=== PATIENT | female | born 1985 | race Two or more races ===

== ENCOUNTER 2017-07-08 21:45 | Emergency (ER) | payer SELFPAY ==
[2017-07-08 22:18] VITALS: BP 129/84
== END 2017-07-08 23:10 | disposition left against medical advice (07) ==
LOC: ER 21:45
DX: Z53.21 Procedure and treatment not carried out due to patient leaving prior to being seen by health care provider (principal)

== ENCOUNTER 2017-07-11 00:18 | Emergency (ER) | payer OTHER ==
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
[2017-07-11] MEDS ORDERED: NAPROXEN 250 MG TABLET PO ONE (00:39)
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
[2017-07-11 01:40] VITALS: BP 135/84
== END 2017-07-11 01:30 ==
LOC: ER 00:18
DX: R10.13 Epigastric pain (principal); R10.30 Lower abdominal pain, unspecified; M54.6 Pain in thoracic spine; V87.7XXA Person injured in collision between other specified motor vehicles (traffic), initial encounter
CPT/HCPCS: 71020; 99284

== ENCOUNTER 2019-04-25 23:18 | Inpatient (IN) | payer OTHER ==
[2019-04-26] MEDS ORDERED: ONDANSETRON HCL INJ/PF 4 MG/2 ML SDV IV ONE (00:58)
[2019-04-26] MEDS ORDERED: NORMAL SALINE 1000 ML 1,000 ML IV ONE ×2 (00:58→01:08)
[2019-04-26] MEDS ORDERED: ACETAMINOPHEN 325 MG TABLET PO ONE (01:04)
--- NOTE | 2019-04-26 01:12 | ER Document Report ---
ED Medical Screen (RME) - General Chief Complaint: Abdominal Pain Stated Complaint: ABDOMINAL PAIN Time Seen by Provider: 04/26/19 01:04 Notes: Patient is a 43-year-old female presents to the emergency department for generalized abdominal pain. Patient states this afternoon she started with generalized abdominal pain and vomiting. Patient points to his suprapubic region when you ask when she has pain. Upon palpation she screams pushes you away all 4 quadrants. Patient did have one episode of emesis in triage. Patient's initial vitals were noted to be hypotensive and tachypneic. Repeat vitals also now found the patient febrile. Discussed this with charge nurse Desi, discussed immediate need for room placement as patient meets sirs criteria. GENERAL: Alert, generally appears unwell, tachypneic and groaning. ABDOMEN: Soft, Non-distended. Bowel sounds present in all 4 quadrants. Generalized tenderness all 4 quadrants sitting in a wheelchair I have greeted and performed a rapid initial assessment of this patient. A comprehensive ED assessment and evaluation of the patient, analysis of test results and completion of the medical decision making process will be conducted by additional ED providers. I have specifically instructed the patient or family members with the patient to immediately return to any nursing staff should anything change in the patient's condition or with their chief complaint. This medical record was dictated with voice recognizing software. There may be grammatical, syntax errors that are unintended. TRAVEL OUTSIDE OF THE [place] IN LAST 30 DAYS: No - Related Data Allergies/Adverse Reactions: No Known Allergies Allergy (Verified 07/11/17 00:22) Past Medical History Renal/ Medical History: Denies: Hx Peritoneal Dialysis Past Surgical History: Reports: Hx Section - Immunizations Hx Diphtheria, Pertussis, Tetanus Vaccination: No Physical Exam - Vital signs Vitals: Temp Pulse Resp BP Pulse Ox 98.9 F 101 H 22 H 95/52 L 98 04/25/19 23:32 04/25/19 23:32 04/25/19 23:32 04/25/19 23:32 04/25/19 23:32 Course - Vital Signs Vital signs: Temp Pulse Resp BP Pulse Ox 101.3 F H 99 16 113/72 98 04/26/19 01:07 04/26/19 01:07 04/26/19 01:07 04/26/19 01:07 04/26/19 01:07 - Laboratory Result Diagrams: 04/26/19 00:58 04/26/19 00:58
[2019-04-26 01:14] LABS: HEMATOCRIT 37.6 % (36.0-47.0); HEMOGLOBIN 12.5 g/dL (12.0-15.5); MEAN CORPUSCULAR HEMOGLOBIN 25.1 pg (27.0-33.4); MEAN CORPUSCULAR HGB CONC 33.3 g/dL (32.0-36.0); MEAN CORPUSCULAR VOLUME 75 fl (80-97); PLATELET COUNT 357 10^3/uL (150-450); RED BLOOD COUNT 4.99 10^6/uL (3.72-5.28); RED CELL DISTRIBUTION WIDTH 13.8 % (11.5-14.0); WHITE BLOOD COUNT 21.4 10^3/uL (4.0-10.5)
[2019-04-26 01:34] LABS: ABSOLUTE LYMPHOCYTES# (MANUAL) 2.6 10^3/uL (0.5-4.7); ABSOLUTE MONOCYTES # (MANUAL) 1.1 10^3/uL (0.1-1.4); BAND NEUTROPHILS % (MANUAL) 4 % (3-5); BASOPHILS % (MANUAL) 0 % (0-2); EOSINOPHILS % (MANUAL) 0 % (0-6); LYMPHOCYTES % (MANUAL) 12 % (13-45); MONOCYTES % (MANUAL) 5 % (3-13); SEGMENTED NEUTROPHILS % (MAN) 79 % (42-78); TOTAL CELLS COUNTED 100
[2019-04-26 01:35] LABS: PLATELET COMMENT ADEQUATE
[2019-04-26 01:39] LABS: ALANINE AMINOTRANSFERASE 68 U/L (9-52); ALBUMIN 4.7 g/dL (3.5-5.0); ALKALINE PHOSPHATASE 41 U/L (38-126); ANION GAP 12 (5-19); ASPARTATE AMINO TRANSFERASE 42 U/L (14-36); BILIRUBIN,DIRECT 0.2 mg/dL (0.0-0.4); BILIRUBIN,TOTAL 0.5 mg/dL (0.2-1.3); BLOOD UREA NITROGEN 15 mg/dL (7-20); CALCIUM 9.9 mg/dL (8.4-10.2); CARBON DIOXIDE 24 mmol/L (22-30); CHLORIDE 104 mmol/L (98-107); GLUCOSE 174 mg/dL (75-110); LIPASE 92.1 U/L (23-300); POTASSIUM 4.4 mmol/L (3.6-5.0); SODIUM 139.6 mmol/L (137-145); TOTAL PROTEIN 8.1 g/dL (6.3-8.2)
[2019-04-26] MEDS ORDERED: HYDROMORPHONE HCL INJ/PF 2 MG/ML AMPULE IV ONE ×2 (02:11→11:10)
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
[2019-04-26] MEDS ORDERED: FENTANYL CITRATE INJ/PF 100 MCG/2 ML AMPUL IV ONE (03:14)
--- NOTE | 2019-04-26 03:23 | RADIOLOGY REPORT (SQ) ---
EXAM DESCRIPTION: CT ABDOMEN PELVIS WITH IV CONTRAST COMPLETED DATE/TME: 04/26/2019 02:11 CLINICAL HISTORY: 33 years, Female, RLQ pain COMPARISON: 12/15/2015 CT TECHNIQUE: 613 Images stored on PACS. All CT scanners at this facility use dose modulation, iterative reconstruction, and/or weight based dosing when appropriate to reduce radiation dose to as low as reasonably achievable (ALARA). [facility]: Dose Right [facility]: CareDose [facility]: Dose Right [facility]: Teradose 4D [facility]: [employer] LIMITATIONS: None. FINDINGS: The visualized lung bases are unremarkable. Osseous structures are grossly intact. Fatty infiltrative change to the liver. 1.6 x 1.6 cm splenic cyst. The adrenal glands, pancreas, and kidneys are unremarkable. The gallbladder is present. Abundant stool in the colon No gross evidence for bowel obstruction. Normal appendix. No free air or free fluid. Follicular change to the ovaries bilaterally. IMPRESSION: Fatty infiltrative change to the liver. Abundant stool in the colon. Splenic cyst. TECHNICAL DOCUMENTATION: Quality ID # [id number]: Final reports with documentation of one or more dose reduction techniques (e.g., Automated exposure control, adjustment of the mA and/or kV according to patient size, use of iterative reconstruction technique) copyright 2010 [employer]- All Rights Reserved
[2019-04-26 03:40] LABS: APPEARANCE,URINE SLIGHTLY-CLOUDY; BILIRUBIN,URINE NEGATIVE (NEGATIVE); COLOR,URINE YELLOW; GLUCOSE, URINE 50 mg/dL (NEGATIVE); KETONES,URINE TRACE mg/dL (NEGATIVE); LEUKOCYTE ESTERASE,URINE NEGATIVE (NEGATIVE); NITRITE,URINE NEGATIVE (NEGATIVE); PROTEIN,URINE NEGATIVE (NEGATIVE); UROBILINOGEN,URINE NEGATIVE mg/dL (<2.0)
[2019-04-26 05:22] LABS: BACTERIA (WET MOUNT) 3+ BACTERIA SEEN; RBCS (WET MOUNT) NO RBCS SEEN; T.VAGINALIS (WET MOUNT) NO TRICHOMONAS SEEN; WBCS (WET MOUNT) 1+ WBCS SEEN; YEAST (WET MOUNT) NO YEAST SEEN
--- NOTE | 2019-04-26 06:24 | PDOC CONSULTATION ---
Consultation Consult Date: 04/26/19 Provider Consulted: NEREIDA SANTIZO Consult reason:: Abdominal pains History of Present Illness History of Present Illness: YOON GILLILAND is a 33 year old female with history of Polycystic Ovarian Syndrome suddenly c/o abdominal pains at 2 pm yesterday while vacationing in [place]. They drove back here to [place] and went to ED directly. Has associated nausea and vomiting. Had regular BM yesterday. Has not had her menses past few months due to her PCOS and usually has pelvic pains but this pains are worse than before. Admits to feeling cold and noted low grade fever in ED with an elevated WBC. Had a CT scan of pelvis without po contrast which was essentially normal with normal appendix. Past Medical History Past Medical History: History of Polycystic ovarian syndrome Past Surgical History Past Surgical History: Reports: Section Social History Smoking Status: Never Smoker Family History Family History: Reviewed & Not Pertinent Parental Family History Reviewed: Yes Children Family History Reviewed: No Sibling(s) Family History Reviewed.: No Medication/Allergy Home Medications: Methocarbamol [Robaxin 500 mg Tablet] 500 mg PO Q4H PRN #10 tablet 07/11/17 Allergies/Adverse Reactions: No Known Allergies Allergy (Verified 07/11/17 00:22) Review of Systems Constitutional: PRESENT: as per HPI, chills Cardiovascular: PRESENT: other - no chest pains/cough Gastrointestinal: PRESENT: abdominal pain, nausea, vomiting Genitourinary: PRESENT: other - no dysuria Endocrine: PRESENT: menstrual abnormalities Physical Exam Vital Signs: Temp Pulse Resp BP Pulse Ox 98.8 F 99 25 H 132/78 H 96 04/26/19 03:41 04/26/19 01:07 04/26/19 03:41 04/26/19 03:41 04/26/19 03:41 Intake & Output 04/24/19 04/25/19 04/26/19 06:59 06:59 06:59 Intake Total 1999 Balance 1999 General appearance: PRESENT: severe distress Head exam: PRESENT: atraumatic Eye exam: PRESENT: conjunctiva pink Mouth exam: PRESENT: moist Neck exam: PRESENT: full ROM Respiratory exam: PRESENT: clear to auscultation fredy Cardiovascular exam: PRESENT: RRR Pulses: PRESENT: normal radial pulses Vascular exam: PRESENT: normal capillary refill GI/Abdominal exam: PRESENT: soft, tenderness - lower abdomen and LUQ Rectal exam: PRESENT: deferred Extremities exam: PRESENT: full ROM Musculoskeletal exam: PRESENT: ambulatory Neurological exam: PRESENT: alert, oriented to person, oriented to place, oriented to time, oriented to situation Psychiatric exam: PRESENT: anxious Skin exam: PRESENT: normal color, warm Results Laboratory Results: 04/26/19 00:58 04/26/19 00:58 04/26/19 04/26/19 04/26/19 00:58 00:58 00:58 WBC 21.4 H RBC 4.99 Hgb 12.5 Hct 37.6 MCV 75 L MCH 25.1 L MCHC 33.3 RDW 13.8 Plt Count 357 Seg Neutrophils % Not Reportable Lymphocytes % Not Reportable Monocytes % Not Reportable Eosinophils % Not Reportable Basophils % Not Reportable Absolute Neutrophils Not Reportable Absolute Lymphocytes Not Reportable Absolute Monocytes Not Reportable Absolute Eosinophils Not Reportable Absolute Basophils Not Reportable Sodium 139.6 Potassium 4.4 Chloride 104 Carbon Dioxide 24 Anion Gap 12 BUN 15 Creatinine 0.63 Est GFR ( Amer) > 60 Est GFR (Non-Af Amer) > 60 Glucose 174 H Lactic Acid Calcium 9.9 Total Bilirubin 0.5 AST 42 H ALT 68 H Alkaline Phosphatase 41 Total Protein 8.1 Albumin 4.7 Lipase 92.1 Serum HCG, Qual NEGATIVE Urine Color Urine Appearance Urine pH Ur Specific [place] Urine Protein Urine Glucose (UA) Urine Ketones Urine Blood Urine Nitrite Ur Leukocyte Esterase Urine WBC (Auto) Urine RBC (Auto) 04/26/19 04/26/19 02:40 03:17 WBC RBC Hgb Hct MCV MCH MCHC RDW Plt Count Seg Neutrophils % Lymphocytes % Monocytes % Eosinophils % Basophils % Absolute Neutrophils Absolute Lymphocytes Absolute Monocytes Absolute Eosinophils Absolute Basophils Sodium Potassium Chloride Carbon Dioxide Anion Gap BUN Creatinine Est GFR ( Amer) Est GFR (Non-Af Amer) Glucose Lactic Acid 1.8 Calcium Total Bilirubin AST ALT Alkaline Phosphatase Total Protein Albumin Lipase Serum HCG, Qual Urine Color YELLOW Urine Appearance SLIGHTLY-CLOUDY Urine pH 5.0 Ur Specific [place] 1.030 Urine Protein NEGATIVE Urine Glucose (UA) 50 H Urine Ketones TRACE H Urine Blood MODERATE H Urine Nitrite NEGATIVE Ur Leukocyte Esterase NEGATIVE Urine WBC (Auto) 5 Urine RBC (Auto) 1 Impressions: Abdomen/Pelvis CT 04/26/19 02:11 IMPRESSION: Fatty infiltrative change to the liver. Abundant stool in the colon. Splenic cyst. TECHNICAL DOCUMENTATION: Quality ID # 436: Final reports with documentation of one or more dose reduction techniques (e.g., Automated exposure control, adjustment of the mA and/or kV according to patient size, use of iterative reconstruction technique) copyright 2011 [employer]- All Rights Reserved Assessment & Plan - Diagnosis (1) Abdominal pain Is this a current diagnosis for this admission?: Yes (2) Polycystic ovarian syndrome Is this a current diagnosis for this admission?: Yes - Time Time Spent: 30 to 50 Minutes - Plan Summary Plan Summary: Needs transvaginal ultrasound to visualize ovaries May need repeat CT scan abd/pelvis with po contrast Repeat WBC Will need tailings man evaluation
[2019-04-26 06:54] LABS: CHLAM PCR NOT DETECTED (NOT DETECT)
--- NOTE | 2019-04-26 07:14 | RADIOLOGY REPORT (SQ) ---
Ultrasound pelvis on 04/26/2019 at 6:26 AM CLINICAL INDICATION: Pelvic pain COMPARISON: CT from 04/26/2019 FINDINGS: Multiple sonographic images are obtained throughout the pelvis by transabdominal and transvaginal approach, both transverse and sagittal images are obtained. Transvaginal imaging is very limited due to the patient's distended bladder.. Uterus measures approximately 11.8 x 3.2 x 4.2 cm. Endometrial stripe is poorly visualized but not thickened. No gross uterine abnormality is noted. Left ovary measures approximately 3.7 x 1.6 x 2.4 cm. Flow is demonstrated in the left ovary. Right ovary measures approximately 2.1 x 3.4 x 1.9 cm. No adnexal mass or fluid collection is noted. No free fluid is noted. IMPRESSION: Unremarkable exam.
[2019-04-26 07:56] LABS: ABSOLUTE LYMPHOCYTES (AUTO) 3.1 10^3/uL (0.5-4.7); ABSOLUTE NEUT (AUTO) 15.1 10^3/uL (1.7-8.2); BASOPHILS % (AUTO) 0.2 % (0-2); EOSINOPHILS % (AUTO) 0.1 % (0-6); HEMATOCRIT 34.6 % (36.0-47.0); HEMOGLOBIN 11.3 g/dL (12.0-15.5); MEAN CORPUSCULAR HEMOGLOBIN 24.7 pg (27.0-33.4); MEAN CORPUSCULAR HGB CONC 32.6 g/dL (32.0-36.0); MEAN CORPUSCULAR VOLUME 76 fl (80-97); MONOCYTES % (AUTO) 5.2 % (3-13); PLATELET COUNT 313 10^3/uL (150-450); RED BLOOD COUNT 4.58 10^6/uL (3.72-5.28); RED CELL DISTRIBUTION WIDTH 14.1 % (11.5-14.0); SEGMENTED NEUTROPHILS % (AUTO) 78.5 % (42-78); TOTAL CELLS COUNTED % (AUTO) 100 %; WHITE BLOOD COUNT 19.2 10^3/uL (4.0-10.5)
--- NOTE | 2019-04-26 09:17 | RADIOLOGY REPORT (SQ) ---
EXAM DESCRIPTION: CT ABD/PELVIS ORAL ONLY COMPLETED DATE/TIME: 04/26/2019 8:59 am REASON FOR STUDY: abd pain, leukocytosis, fever, surgeon request COMPARISON: Same day CT abdomen pelvis, 0245 hours TECHNIQUE: CT scan of the abdomen and pelvis performed without intravenous contrast. Oral enteric c ontrast was administered. Images reviewed with lung, soft tissue, and bone windows. Reconstructed cor onal and sagittal MPR images reviewed. All images stored on PACS. All CT scanners at this facility use dose modulation, iterative reconstruction, and/or weight based d osing when appropriate to reduce radiation dose to as low as reasonably achievable (ALARA). [facility]: Dose Right [facility]: CareDose [facility]: Dose Right [facility]: Teradose 4D [facility]: Smart 2Peer (Qlipso) RADIATION DOSE: CT Rad equipment meets quality standard of care and radiation dose reduction techniq ues were employed. CTDIvol: 13.5 mGy. DLP: 820 mGy-cm.mGy. LIMITATIONS: None. FINDINGS: LOWER CHEST: Trace pleural effusions and associated atelectasis or consolidation. NON-CONTRASTED LIVER, SPLEEN, ADRENALS: Evaluation limited by lack of IV contrast. Hepatic steatosis . No identified significant masses. PANCREAS: No masses. No peripancreatic inflammatory changes. GALLBLADDER: No identified stones by CT criteria. No inflammatory changes to suggest cholecystitis. RIGHT KIDNEY AND URETER: No suspicious masses. Assessment limited by lack of IV contrast. No signif icant calcifications. No hydronephrosis or hydroureter. LEFT KIDNEY AND URETER: No suspicious masses. Assessment limited by lack of IV contrast. No signifi cant calcifications. No hydronephrosis or hydroureter. AORTA AND RETROPERITONEUM: No aneurysm. No retroperitoneal masses or adenopathy. BOWEL AND PERITONEAL CAVITY: No obvious masses or inflammatory changes. No free fluid. Interval decr ease in colonic stool burden. APPENDIX: Normal. PELVIS, BLADDER, AND ABDOMINAL WALL:No abnormal masses. Coles catheter in the urinary bladder. No f ree fluid. Bladder normal. BONES: No significant findings. OTHER: No other significant finding. IMPRESSION: 1. Interval decrease in stool burden in the colon. 2. Interval placement of Coles catheter in the urinary bladder. 3. Hepatic steatosis. 4. No additional abnormality of the abdomen or pelvis revealed by the administration of oral contras t. 5. Trace bilateral pleural effusions. COMMENT: Quality ID # [id number]: Final reports with documentation of one or more dose reduction techniques (e.g., Automated exposure control, adjustment of the mA and/or kV according to patient size, use of iterative reconstruction technique) TECHNICAL DOCUMENTATION: JOB ID: [id number] [employer]- All Rights Reserved Reading location - IP/workstation name: [email or web address]
[2019-04-26] MEDS ORDERED: ERTAPENEM SODIUM INJ 1 GM VIAL IV ONE (12:39)
--- NOTE | 2019-04-26 12:42 | PDOC H&P ---
History of Present Illness History of Present Illness: YOON GILLILAND is a 33 year old female who had acute onset of lower abdominal pain yesterday afternoon. It initially subsided and then recurred and has been persistent and severe since. patient has had nausea and vomiting and fever. Patient denies any prior episodes of this severe and persistent pain. Patient has had some vaginal discharge but she notes that that is not unusual for her. No hematuria. No flank pain. No recent trauma. Past Medical History Cardiac Medical History: Reports: None Pulmonary Medical History: Reports: None EENT Medical History: Reports: None Neurological Medical History: Reports: None Endocrine Medical History: Reports: Other - Polycystic ovarian syndrome Renal/ Medical History: Reports: None GI Medical History: Reports: None Musculoskeltal Medical History: Reports: None Skin Medical History: Reports: None Psychiatric Medical History: Reports: None Hematology: Reports: None Infectious Medical History: Reports: Other Past Surgical History Past Surgical History: Reports: Section Social History Lives with: Family Smoking Status: Never Smoker Frequency of Alcohol Use: None Hx Recreational Drug Use: No Hx Prescription Drug Abuse: No Family History Family History: Reviewed & Not Pertinent Parental Family History Reviewed: Yes Children Family History Reviewed: Yes Sibling(s) Family History Reviewed.: Yes Medication/Allergy Home Medications: No Home Medications 04/26/19 Allergies/Adverse Reactions: No Known Allergies Allergy (Verified 07/11/17 00:22) Physical Exam Vital Signs: Temp Pulse Resp BP Pulse Ox 97.4 F 99 18 116/69 96 04/26/19 08:13 04/26/19 01:07 04/26/19 09:30 04/26/19 09:30 04/26/19 09:30 Intake & Output 04/25/19 04/26/19 04/27/19 06:59 06:59 06:59 Intake Total 1999 Balance 1999 General appearance: PRESENT: cooperative, other - Patient and severe distress complaining of abdominal pain. Patient appears ill. She does provide a good history. Eye exam: PRESENT: conjunctiva pink Neck exam: PRESENT: other - Supple with no masses and no tenderness Respiratory exam: PRESENT: clear to auscultation fredy Cardiovascular exam: PRESENT: RRR GI/Abdominal exam: PRESENT: other - Severe diffuse abdominal tenderness especially in the mid to lower abdomen with guarding and rebound. Psychiatric exam: PRESENT: anxious Skin exam: PRESENT: warm Results Laboratory Results: 04/26/19 07:42 04/26/19 00:58 04/26/19 04/26/19 04/26/19 00:58 00:58 00:58 WBC 21.4 H RBC 4.99 Hgb 12.5 Hct 37.6 MCV 75 L MCH 25.1 L MCHC 33.3 RDW 13.8 Plt Count 357 Seg Neutrophils % Not Reportable Lymphocytes % Not Reportable Monocytes % Not Reportable Eosinophils % Not Reportable Basophils % Not Reportable Absolute Neutrophils Not Reportable Absolute Lymphocytes Not Reportable Absolute Monocytes Not Reportable Absolute Eosinophils Not Reportable Absolute Basophils Not Reportable Sodium 139.6 Potassium 4.4 Chloride 104 Carbon Dioxide 24 Anion Gap 12 BUN 15 Creatinine 0.63 Est GFR ( Amer) > 60 Est GFR (Non-Af Amer) > 60 Glucose 174 H Lactic Acid Calcium 9.9 Total Bilirubin 0.5 AST 42 H ALT 68 H Alkaline Phosphatase 41 Total Protein 8.1 Albumin 4.7 Lipase 92.1 Serum HCG, Qual NEGATIVE Urine Color Urine Appearance Urine pH Ur Specific [place] Urine Protein Urine Glucose (UA) Urine Ketones Urine Blood Urine Nitrite Ur Leukocyte Esterase Urine WBC (Auto) Urine RBC (Auto) 04/26/19 04/26/19 04/26/19 02:40 03:17 07:42 WBC 19.2 H RBC 4.58 Hgb 11.3 L Hct 34.6 L MCV 76 L MCH 24.7 L MCHC 32.6 RDW 14.1 H Plt Count 313 Seg Neutrophils % 78.5 H Lymphocytes % 16.0 Monocytes % 5.2 Eosinophils % 0.1 Basophils % 0.2 Absolute Neutrophils 15.1 H Absolute Lymphocytes 3.1 Absolute Monocytes 1.0 Absolute Eosinophils 0.0 Absolute Basophils 0.0 Sodium Potassium Chloride Carbon Dioxide Anion Gap BUN Creatinine Est GFR ( Amer) Est GFR (Non-Af Amer) Glucose Lactic Acid 1.8 Calcium Total Bilirubin AST ALT Alkaline Phosphatase Total Protein Albumin Lipase Serum HCG, Qual Urine Color YELLOW Urine Appearance SLIGHTLY-CLOUDY Urine pH 5.0 Ur Specific [place] 1.030 Urine Protein NEGATIVE Urine Glucose (UA) 50 H Urine Ketones TRACE H Urine Blood MODERATE H Urine Nitrite NEGATIVE Ur Leukocyte Esterase NEGATIVE Urine WBC (Auto) 5 Urine RBC (Auto) 1 Impressions: Abdomen/Pelvis CT 04/26/19 02:11 IMPRESSION: Fatty infiltrative change to the liver. Abundant stool in the colon. Splenic cyst. TECHNICAL DOCUMENTATION: Quality ID # 436: Final reports with documentation of one or more dose reduction techniques (e.g., Automated exposure control, adjustment of the mA and/or kV according to patient size, use of iterative reconstruction technique) copyright 2011 [employer]- All Rights Reserved Transvaginal US 04/26/19 06:05 IMPRESSION: Unremarkable exam. Assessment & Plan - Diagnosis (1) Abdominal pain Qualifiers: Abdominal location: generalized Qualified Code(s): R10.84 - Generalized abdominal pain Is this a current diagnosis for this admission?: Yes Plan: Severe diffuse abdominal pain with peritoneal signs on physical exam along with leukocytosis. Gynecology is convinced that it is not a gynecological problem and they do not feel that it is PID, therefore based upon my exam despite a negative CT, she requires an surgical exploration. We will plan exploratory laparoscopy, possible laparotomy. I have explained to the patient and the patient's the risk and benefits of the surgery including risk that I do not find a surgical problem, bleeding, infection, intestinal and adjacent structure injuries. They fully understand the nature of the surgery and indications for it, and agree to proceed.
[2019-04-26] MEDS ORDERED: FENTANYL CITRATE INJ/PF 250 MCG/5 ML AMPULE ONE (12:46)
[2019-04-26] MEDS ORDERED: LIDOCAINE 2% INJ-PF (100 MG/5 ML) SYRINGE ONE (12:46)
[2019-04-26] MEDS ORDERED: KETAMINE HCL INJ 500 MG/10 ML VIAL ONE (12:46)
[2019-04-26] MEDS ORDERED: MIDAZOLAM 2 MG/2 ML INJ ONE (12:47)
[2019-04-26] MEDS ORDERED: PROPOFOL INJ 200 MG/20 ML VIAL IV ONE (12:47)
[2019-04-26] MEDS ORDERED: BUPIVACAINE HCL 0.25 % INJ/PF (2.5 MG/1 ML) 30 ML VIAL ONE (12:49)
[2019-04-26] MEDS ORDERED: MORPHINE SULFATE 10 MG/ML INJ ONE (14:37)
[2019-04-26] MEDS ORDERED: MORPHINE SULFATE 10 MG/ML INJ IV PRN (14:55)
[2019-04-26] MEDS ORDERED: DIPHENHYDRAMINE HCL 50 MG/ML VIAL IV PRN (14:55)
[2019-04-26] MEDS ORDERED: MEPERIDINE HCL/PF INJ 25 MG/1 ML DISP.SYRIN IV PRN (14:55)
[2019-04-26] MEDS ORDERED: FENTANYL CITRATE INJ/PF 100 MCG/2 ML AMPUL IV PRN ×3 (14:55)
[2019-04-26] MEDS ORDERED: PROMETHAZINE HCL INJ 25 MG/1 ML VIAL IV PRN ×2 (14:55)
--- NOTE | 2019-04-26 15:36 | Operative Report ---
Operative Report DATE OF SURGERY: 04/26/19 PREOPERATIVE DIAGNOSIS: Abdominal sepsis POSTOPERATIVE DIAGNOSIS: Possible pelvic inflammatory disease. OPERATION: Exploratory laparoscopy with laparoscopic appendectomy. SURGEON: ANNETTE DURAN ANESTHESIA: GA TISSUE REMOVED OR ALTERED: Appendix. Pus and pelvis swab for Gram stain culture. COMPLICATIONS: None ESTIMATED BLOOD LOSS: Minimal INTRAOPERATIVE FINDINGS: Purulent fluid in the pelvis. Slightly full fallopian tubes. Corpus luteal cysts of the ovaries. Normal-appearing right colon transverse colon descending colon and sigmoid colon. Normal-appearing liver. Normal-appearing gallbladder. Normal-appearing anterior portion of the stomach and first and second portion of the duodenum. Normal-appearing small bowel other than mild hyperemia of portions of the small bowel that appear more consistent with a reaction to the pus and not the primary cause of it. Very mildly distended appendix but no erythema of it. Lower abdominal omental adhesions. PROCEDURE: Informed consent was obtained. Patient was brought to the operating room and placed on the operating room table in the supine position. After satisfactory induction of general anesthesia patient's abdomen was prepped and draped in the usual sterile fashion. A supraumbilical midline incision was made and dissection carried out through the fascia and the peritoneal cavity entered without difficulty. Cox trocar was inserted and pneumoperitoneum produced with good patient toleration. Total of three 5 mm trochars were used during the case. One at the right mid abdomen. One at the mid upper abdomen. And last at the left lower abdomen. Both of the lateral trochars were placed lateral to the rectus. Exploratory laparoscopy was performed. Laparoscopic view of the pelvis revealed purulent fluid in the pelvis. Both of the ovaries were visualized and they appear slightly enlarged with corpus luteal cysts but otherwise unremarkable. The fallopian tubes appears slightly full but otherwise appeared normal. Pus was not seen coming out of the fallopian tubes. The sigmoid colon appeared normal. The descending colon transverse colon right colon the cecum were visualized and they all appeared normal. The appendix appeared mildly dilated but there was no erythema. The small bowel was run from the ileocecal junction to the ligament of Treitz. There was some region of the small bowel that had some hyperemia but the bowel wall appears soft and pliable and I believe the hyperemic regions were likely due to the reaction to the pus that was in the pelvis. No evidence of Meckel's diverticulum nor small bowel perforation nor inflammatory bowel disease was noted. The gallbladder appeared normal. The liver had a slightly fatty appearance but otherwise appear normal. The stomach anteriorly as well as the first and second portion of the duodenum appeared normal with no evidence of perforation. Of note there was omental adhesions at the midline in the lower abdomen which was taken down looking with the LigaSure at the beginning of the case to obtain adequate exploration. With no definite source of the pus in the pelvis, I feel strongly that appendectomy was indicated to completely rule out appendicitis as the source. A plane was created between the mesoappendix and the appendix at the base of the appendix. The appendix was taken flush with the cecum using a laparoscopic PATRICIA stapling device. The mesoappendix was taken using a vascular load of the stapling device. Hemostasis appeared to be good. The appendix was placed in Endobag and removed to the Cox trocar site fascial defect. Of note at the beginning of the case the pus in the pelvis was swabbed for Gram stain and culture. All trochars were removed under the direct vision of the laparoscope to ensure hemostasis. The Cox trocar site fascial defect was closed with interrupted Vicryl sutures. All skin incisions were closed with subcuticular interrupted Monocryl sutures. Marcaine was injected at the port sites. Patient tolerated procedure well with no apparent complications and was taken to the recovery area in stable condition. Dr. Hess (gynecology) was present during the procedure. He has agreed to take the patient onto his service for antibiotic treatments for possible PID.
[2019-04-26] MEDS ORDERED: DEXTROSE 40% GEL 15 GM TUBE PO PRN ×2 (15:37)
[2019-04-26] MEDS ORDERED: DEXTROSE 50%-WATER 25 GM/50 ML DISP.SYRIN IV PRN ×2 (15:37)
[2019-04-26] MEDS ORDERED: GLUCAGON,HUMAN RECOMB 1 MG INJ SUBCUT PRN (15:37)
[2019-04-26] MEDS ORDERED: SUCCINYLCHOLINE CHLORIDE INJ 200 MG/10 ML VIAL ONE (18:21)
[2019-04-26] MEDS ORDERED: ROCURONIUM BROMIDE INJ 50 MG/5 ML VIAL IV ONE (18:21)
[2019-04-26] MEDS: MORPHINE SULFATE 10 MG/ML INJ IV PRN ×2 (18:33→21:53)
[2019-04-26] MEDS: CEFTRIAXONE SODIUM 1,000 MG in DEXTROSE 5%-WATER 50 ML IV SCH (21:17)
[2019-04-26] MEDS: ONDANSETRON 4 MG TAB.RAPDIS PO PRN (21:52)
[2019-04-26] MEDS: CLINDAMYCIN 900 MG/D5W RTU 900 MG/50 ML RTUPB IV SCH (21:53)
--- NOTE | 2019-04-26 22:12 | PDOC PROGRESS REPORT ---
Subjective Progress Note for:: 04/26/19 Subjective:: Try to get up and got nauseated and vomited. Thinks that the preoperative pain has improved but now hurting in the left periumbilical region. Reason For Visit: PELVIC SEPSIS Physical Exam Vital Signs: Temp Pulse Resp BP Pulse Ox 98.6 F 92 18 138/80 H 98 04/26/19 21:17 04/26/19 21:17 04/26/19 21:17 04/26/19 21:17 04/26/19 21:17 Intake & Output 04/25/19 04/26/19 04/27/19 06:59 06:59 06:59 Intake Total 1999 1150 Output Total 1210 Balance 1999 Weight 83.7 kg General appearance: PRESENT: cooperative, mild distress Respiratory exam: PRESENT: clear to auscultation fredy Cardiovascular exam: PRESENT: RRR GI/Abdominal exam: PRESENT: other - Soft, diffuse abdominal tenderness has markedly improved from her preoperative state. She is tender mostly at the trocar sites. Results Laboratory Results: 04/26/19 07:42 04/26/19 00:58 04/26/19 04/26/19 04/26/19 00:58 00:58 00:58 WBC 21.4 H RBC 4.99 Hgb 12.5 Hct 37.6 MCV 75 L MCH 25.1 L MCHC 33.3 RDW 13.8 Plt Count 357 Seg Neutrophils % Not Reportable Lymphocytes % Not Reportable Monocytes % Not Reportable Eosinophils % Not Reportable Basophils % Not Reportable Absolute Neutrophils Not Reportable Absolute Lymphocytes Not Reportable Absolute Monocytes Not Reportable Absolute Eosinophils Not Reportable Absolute Basophils Not Reportable Sodium 139.6 Potassium 4.4 Chloride 104 Carbon Dioxide 24 Anion Gap 12 BUN 15 Creatinine 0.63 Est GFR ( Amer) > 60 Est GFR (Non-Af Amer) > 60 Glucose 174 H Lactic Acid Calcium 9.9 Total Bilirubin 0.5 AST 42 H ALT 68 H Alkaline Phosphatase 41 Total Protein 8.1 Albumin 4.7 Lipase 92.1 Serum HCG, Qual NEGATIVE Urine Color Urine Appearance Urine pH Ur Specific [place] Urine Protein Urine Glucose (UA) Urine Ketones Urine Blood Urine Nitrite Ur Leukocyte Esterase Urine WBC (Auto) Urine RBC (Auto) 04/26/19 04/26/19 04/26/19 02:40 03:17 07:42 WBC 19.2 H RBC 4.58 Hgb 11.3 L Hct 34.6 L MCV 76 L MCH 24.7 L MCHC 32.6 RDW 14.1 H Plt Count 313 Seg Neutrophils % 78.5 H Lymphocytes % 16.0 Monocytes % 5.2 Eosinophils % 0.1 Basophils % 0.2 Absolute Neutrophils 15.1 H Absolute Lymphocytes 3.1 Absolute Monocytes 1.0 Absolute Eosinophils 0.0 Absolute Basophils 0.0 Sodium Potassium Chloride Carbon Dioxide Anion Gap BUN Creatinine Est GFR ( Amer) Est GFR (Non-Af Amer) Glucose Lactic Acid 1.8 Calcium Total Bilirubin AST ALT Alkaline Phosphatase Total Protein Albumin Lipase Serum HCG, Qual Urine Color YELLOW Urine Appearance SLIGHTLY-CLOUDY Urine pH 5.0 Ur Specific [place] 1.030 Urine Protein NEGATIVE Urine Glucose (UA) 50 H Urine Ketones TRACE H Urine Blood MODERATE H Urine Nitrite NEGATIVE Ur Leukocyte Esterase NEGATIVE Urine WBC (Auto) 5 Urine RBC (Auto) 1 Impressions: Abdomen/Pelvis CT 04/26/19 02:11 IMPRESSION: Fatty infiltrative change to the liver. Abundant stool in the colon. Splenic cyst. TECHNICAL DOCUMENTATION: Quality ID # [id number]: Final reports with documentation of one or more dose reduction techniques (e.g., Automated exposure control, adjustment of the mA and/or kV according to patient size, use of iterative reconstruction technique) copyright 2011 [employer]- All Rights Reserved Transvaginal US 04/26/19 06:05 IMPRESSION: Unremarkable exam. Assessment & Plan - Diagnosis (1) Abdominal pain Qualifiers: Abdominal location: generalized Qualified Code(s): R10.84 - Generalized abdominal pain Is this a current diagnosis for this admission?: Yes Plan: Purulent fluid found in the pelvis during exploratory laparoscopy. Possibility of early suppurative appendicitis exist although the appendix was only slightly dilated with no erythema. Will await pathology report. Pelvic inflammatory disease is a likely possibility. Pending intraop culture results. Patient receiving antibiotics as per gynecology for this possibility. I have explained to the patient the intraoperative findings. Will defer to Dr Hess (gynecology) to explain the disease ramifications of PID when patient is more alert.
[2019-04-27] MEDS: MORPHINE SULFATE 10 MG/ML INJ IV PRN ×5 (00:53→21:16)
[2019-04-27] MEDS: NORMAL SALINE 1000 ML 1,000 ML IV PRN ×2 (00:55→13:02)
[2019-04-27] MEDS: CLINDAMYCIN 900 MG/D5W RTU 900 MG/50 ML RTUPB IV SCH ×3 (05:05→22:17)
[2019-04-27 06:15] LABS: HEMOGLOBIN 11.2 g/dL (12.0-15.5); MEAN CORPUSCULAR HEMOGLOBIN 24.8 pg (27.0-33.4); MEAN CORPUSCULAR HGB CONC 32.8 g/dL (32.0-36.0); MEAN CORPUSCULAR VOLUME 76 fl (80-97); PLATELET COUNT 309 10^3/uL (150-450); RED BLOOD COUNT 4.49 10^6/uL (3.72-5.28); RED CELL DISTRIBUTION WIDTH 14.4 % (11.5-14.0); WHITE BLOOD COUNT 11.1 10^3/uL (4.0-10.5)
[2019-04-27 06:39] LABS: ANION GAP 10 (5-19); BLOOD UREA NITROGEN 7 mg/dL (7-20); CALCIUM 8.8 mg/dL (8.4-10.2); CARBON DIOXIDE 26 mmol/L (22-30); CHLORIDE 104 mmol/L (98-107); GLUCOSE 115 mg/dL (75-110); SODIUM 139.7 mmol/L (137-145)
[2019-04-27] MEDS: ONDANSETRON 4 MG TAB.RAPDIS PO PRN (09:27)
[2019-04-27] MEDS: CEFTRIAXONE SODIUM 1,000 MG in DEXTROSE 5%-WATER 50 ML IV SCH ×2 (09:28→21:18)
--- NOTE | 2019-04-27 09:52 | PDOC PROGRESS REPORT ---
Subjective Progress Note for:: 04/27/19 Subjective:: lower midsternal(xiphoid) pains worse on deep breathing No flatus yet Reason For Visit: PELVIC SEPSIS Physical Exam Vital Signs: Temp Pulse Resp BP Pulse Ox 98.8 F 78 16 117/66 100 04/27/19 07:07 04/27/19 07:07 04/27/19 07:07 04/27/19 07:07 04/27/19 07:07 Intake & Output 04/26/19 04/27/19 04/28/19 06:59 06:59 06:59 Intake Total 1999 1250 50 Output Total 2009 Balance 1999 -760 50 Weight 87.3 kg Exam: Abdomen is soft with minimal tenderness. Results Laboratory Results: 04/27/19 05:49 04/27/19 05:49 04/27/19 04/27/19 05:49 05:49 WBC 11.1 H RBC 4.49 Hgb 11.2 L Hct 34.0 L MCV 76 L MCH 24.8 L MCHC 32.8 RDW 14.4 H Plt Count 309 Sodium 139.7 Potassium 4.0 Chloride 104 Carbon Dioxide 26 Anion Gap 10 BUN 7 Creatinine 0.66 Est GFR ( Amer) > 60 Est GFR (Non-Af Amer) > 60 Glucose 115 H Calcium 8.8 Impressions: Abdomen/Pelvis CT 04/26/19 02:11 IMPRESSION: Fatty infiltrative change to the liver. Abundant stool in the colon. Splenic cyst. TECHNICAL DOCUMENTATION: Quality ID # [id number]: Final reports with documentation of one or more dose reduction techniques (e.g., Automated exposure control, adjustment of the mA and/or kV according to patient size, use of iterative reconstruction technique) copyright 2011 [employer]- All Rights Reserved Transvaginal US 04/26/19 06:05 IMPRESSION: Unremarkable exam. Assessment & Plan - Diagnosis (1) Abdominal pain Qualifiers: Abdominal location: generalized Qualified Code(s): R10.84 - Generalized abdominal pain Is this a current diagnosis for this admission?: Yes (2) Polycystic ovarian syndrome Is this a current diagnosis for this admission?: Yes (3) PID (acute pelvic inflammatory disease) Is this a current diagnosis for this admission?: Yes (4) Fever Is this a current diagnosis for this admission?: Yes (5) Leukocytosis Is this a current diagnosis for this admission?: Yes - Time Time Spent with patient: 15-24 minutes - Inpatient Certification Medical Necessity: Need For IV Fluids, Need for IV Antibiotics, Risk of Compli cation if Not Cared For in Hospital - Plan Summary Plan Summary: Check cXR to R/O atelectasis/PNA Suspect pains likely diaphragmatic fro laparoscopic insufflation Start clears Continue IV antibiotics Will leave with [facility] further antibiotic therapy for PID
--- NOTE | 2019-04-27 10:40 | RADIOLOGY REPORT (SQ) ---
EXAM DESCRIPTION: CHEST 2 VIEWS COMPLETED DATE/TIME: 04/27/2019 10:29 am REASON FOR STUDY: rule out pneumonia COMPARISON: Chest x-ray dated 07/11/2017. CT abdomen and pelvis dated 04/26/2019. TECHNIQUE: Frontal and lateral radiographic views of the chest acquired. NUMBER OF VIEWS: Two view. LIMITATIONS: None. FINDINGS: LUNGS AND PLEURA: No opacities, masses or pneumothorax. No pleural effusion. MEDIASTINUM AND HILAR STRUCTURES: No masses or contour abnormalities. HEART AND VASCULAR STRUCTURES: Heart normal size. No evidence for failure. BONES: No acute findings. HARDWARE: None in the chest. OTHER: No other significant finding. IMPRESSION: NO SIGNIFICANT RADIOGRAPHIC FINDING IN THE CHEST. TECHNICAL DOCUMENTATION: JOB ID: [id number] [employer]- All Rights Reserved Reading location - IP/workstation name: [email or web address]
--- NOTE | 2019-04-27 15:02 | PDOC PROGRESS REPORT ---
Subjective Progress Note for:: 04/27/19 Subjective:: Patient states that she feels better although she is complaining of chest pressure. Pulse ox placed and patient "satting" 98 on room air. Her pain is controlled. Patient is ambulating without difficulty. She has the order to have her catheter removed. Her diet has been advanced to clear liquids. She has no complaints of vaginal discharge or bleeding. Reason For Visit: PELVIC SEPSIS Physical Exam - Physical Exam Vital Signs: Temp Pulse Resp BP Pulse Ox 98.4 F 74 16 114/70 99 04/27/19 11:25 04/27/19 11:25 04/27/19 11:25 04/27/19 11:25 04/27/19 11:25 Intake & Output 04/26/19 04/27/19 04/28/19 06:59 06:59 06:59 Intake Total 1999 1250 1100 Output Total 2009 500 Balance 1999 -760 600 Weight 87.3 kg General appearance: PRESENT: no acute distress Respiratory exam: PRESENT: clear to auscultation fredy Cardiovascular exam: PRESENT: RRR GI/Abdominal exam: PRESENT: normal bowel sounds, soft - Appropriate tenderness Extremities exam: ABSENT: calf tenderness, clubbing, full ROM, joint swelling, pedal edema, tenderness, +1 edema, +2 edema, other Result Laboratory Results: 04/27/19 05:49 04/27/19 05:49 04/27/19 04/27/19 05:49 05:49 WBC 11.1 H RBC 4.49 Hgb 11.2 L Hct 34.0 L MCV 76 L MCH 24.8 L MCHC 32.8 RDW 14.4 H Plt Count 309 Sodium 139.7 Potassium 4.0 Chloride 104 Carbon Dioxide 26 Anion Gap 10 BUN 7 Creatinine 0.66 Est GFR ( Amer) > 60 Est GFR (Non-Af Amer) > 60 Glucose 115 H Calcium 8.8 04/26/19 03:17 Clean Catch Midstream Urine Culture - Final Mixed Urogenital Brenda Impressions: Abdomen/Pelvis CT 04/26/19 02:11 IMPRESSION: Fatty infiltrative change to the liver. Abundant stool in the colon. Splenic cyst. TECHNICAL DOCUMENTATION: Quality ID # 436: Final reports with documentation of one or more dose reduction techniques (e.g., Automated exposure control, adjustment of the mA and/or kV according to patient size, use of iterative reconstruction technique) copyright 2011 [employer]- All Rights Reserved Transvaginal US 04/26/19 06:05 IMPRESSION: Unremarkable exam. Chest X-Ray 04/27/19 00:00 IMPRESSION: NO SIGNIFICANT RADIOGRAPHIC FINDING IN THE CHEST. Assessment & Plan - Diagnosis (1) Abdominal pain Qualifiers: Abdominal location: generalized Qualified Code(s): R10.84 - Generalized abdominal pain Is this a current diagnosis for this admission?: Yes (2) Leukocytosis Is this a current diagnosis for this admission?: Yes (3) PID (acute pelvic inflammatory disease) Is this a current diagnosis for this admission?: Yes (4) Polycystic ovarian syndrome Is this a current diagnosis for this admission?: Yes - Time Time Spent with patient: 15-24 minutes - Plan Summary Plan Summary: 1. Continue current IV antibiotics 2. Remove Coles catheter as instructed 3. Continue current care
[2019-04-28] MEDS: MORPHINE SULFATE 10 MG/ML INJ IV PRN (01:30)
[2019-04-28] MEDS: NORMAL SALINE 1000 ML 1,000 ML IV PRN ×3 (01:35→21:12)
[2019-04-28] MEDS: CLINDAMYCIN 900 MG/D5W RTU 900 MG/50 ML RTUPB IV SCH ×3 (05:03→22:50)
[2019-04-28] MEDS: CEFTRIAXONE SODIUM 1,000 MG in DEXTROSE 5%-WATER 50 ML IV SCH ×2 (10:28→21:12)
[2019-04-28] MEDS ORDERED: OXYCODONE-ACETAMINOPHEN 5-325 MG TABLET ONE (12:09)
--- NOTE | 2019-04-28 12:40 | PDOC PROGRESS REPORT ---
Subjective Progress Note for:: 04/28/19 Subjective:: pains left LQ Passed flatus Feels a little better Tolerating clears Reason For Visit: PELVIC SEPSIS Physical Exam Vital Signs: Temp Pulse Resp BP Pulse Ox 98 F 85 18 115/81 99 04/28/19 12:19 04/28/19 12:19 04/28/19 12:19 04/28/19 12:19 04/28/19 12:19 Intake & Output 04/27/19 04/28/19 04/29/19 06:59 06:59 06:59 Intake Total 1250 2780 1000 Output Total 2009 1550 Balance -760 1230 1000 Weight 87.3 kg 85.6 kg Exam: abdomen is soft with mild tenderness LLQ Results Laboratory Results: 04/27/19 05:49 04/27/19 05:49 04/26/19 03:17 Clean Catch Midstream Urine Culture - Final Mixed Urogenital Brenda Impressions: Abdomen/Pelvis CT 04/26/19 02:11 IMPRESSION: Fatty infiltrative change to the liver. Abundant stool in the colon. Splenic cyst. TECHNICAL DOCUMENTATION: Quality ID # [id number]: Final reports with documentation of one or more dose reduction techniques (e.g., Automated exposure control, adjustment of the mA and/or kV according to patient size, use of iterative reconstruction technique) copyright 2011 [employer]- All Rights Reserved Transvaginal US 04/26/19 06:05 IMPRESSION: Unremarkable exam. Chest X-Ray 04/27/19 00:00 IMPRESSION: NO SIGNIFICANT RADIOGRAPHIC FINDING IN THE CHEST. Assessment & Plan - Diagnosis (1) Abdominal pain Qualifiers: Abdominal location: generalized Qualified Code(s): R10.84 - Generalized abdominal pain Is this a current diagnosis for this admission?: Yes (2) Polycystic ovarian syndrome Is this a current diagnosis for this admission?: Yes (3) PID (acute pelvic inflammatory disease) Is this a current diagnosis for this admission?: Yes (4) Fever Is this a current diagnosis for this admission?: Yes (5) Leukocytosis Is this a current diagnosis for this admission?: Yes - Time Time Spent with patient: 15-24 minutes - Inpatient Certification Medical Necessity: Need for IV Antibiotics - Plan Summary Plan Summary: Called by microbiology last night that one of the blood cultures showed G+ cocci She is afebrile and WBC is almost normal yesterday Rec: Continue IV antibiotics per [employer]IATE Advance diet Place on PO pain meds
[2019-04-28] MEDS: OXYCODONE-ACETAMINOPHEN 5-325 MG TABLET PO PRN (18:15)
--- NOTE | 2019-04-28 22:11 | PDOC PROGRESS REPORT ---
Subjective Progress Note for:: 04/28/19 Subjective:: Patient feels much better after surgery. Denies any diffuse abdominal pain, much improved from admission. Pt notes point tenderness in the upper abdomen between laparoscopic port sites to the left of the midline. Patient is tolerating a regular diet and OOB ambulating without difficulty. Pt denies any nausea or vomiting, SOB or CP. Pt is questionable about fevers and chills as she states she gets hot and cold but there are no documented pyrexia. Pt started menses today and states it is not as heavy as her regular menses. Pt notes she is not having severe cramping either. Reason For Visit: PELVIC SEPSIS status post laparoscopy with appendectomy, receiving IV antibiotics Physical Exam - Physical Exam Vital Signs: Temp Pulse Resp BP Pulse Ox 98.4 F 81 16 123/70 97 04/28/19 19:34 04/28/19 19:34 04/28/19 19:34 04/28/19 19:34 04/28/19 19:34 Intake & Output 04/27/19 04/28/19 04/29/19 06:59 06:59 06:59 Intake Total 1250 2780 2100 Output Total 2009 1550 Balance -760 1230 2100 Weight 87.3 kg 85.6 kg General appearance: PRESENT: no acute distress, cooperative, well-developed, well-nourished Head exam: PRESENT: atraumatic, normocephalic Eye exam: PRESENT: EOMI Respiratory exam: PRESENT: clear to auscultation fredy, symmetrical, unlabored Cardiovascular exam: PRESENT: RRR, +S1, +S2 Pulses: PRESENT: normal dorsalis pedis pul GI/Abdominal exam: PRESENT: normal bowel sounds, soft, tenderness - adjacent to laparscopic port site in the upper abdomen Rectal exam: PRESENT: deferred Neurological exam: PRESENT: alert, awake, oriented to person, oriented to place, oriented to time, oriented to situation, normal gait Psychiatric exam: PRESENT: normal mood Skin exam: PRESENT: normal color Result Laboratory Results: 04/27/19 05:49 04/27/19 05:49 Impressions: Abdomen/Pelvis CT 04/26/19 02:11 IMPRESSION: Fatty infiltrative change to the liver. Abundant stool in the colon. Splenic cyst. TECHNICAL DOCUMENTATION: Quality ID # 436: Final reports with documentation of one or more dose reduction techniques (e.g., Automated exposure control, adjustment of the mA and/or kV according to patient size, use of iterative reconstruction technique) copyright 2011 [employer] All Rights Reserved Transvaginal US 04/26/19 06:05 IMPRESSION: Unremarkable exam. Chest X-Ray 04/27/19 00:00 IMPRESSION: NO SIGNIFICANT RADIOGRAPHIC FINDING IN THE CHEST. Assessment & Plan - Diagnosis (1) Abdominal pain Qualifiers: Abdominal location: generalized Qualified Code(s): R10.84 - Generalized abdominal pain Is this a current diagnosis for this admission?: Yes Plan: Continue IV antibiotics for now; blood cultures are negative in addition to genital swabs. IV antibiotics to continue second to noted purulence at the time of laparoscopy
[2019-04-29] MEDS: OXYCODONE-ACETAMINOPHEN 5-325 MG TABLET PO PRN ×2 (00:30→10:14)
[2019-04-29] MEDS: CLINDAMYCIN 900 MG/D5W RTU 900 MG/50 ML RTUPB IV SCH (06:06)
--- NOTE | 2019-04-29 07:40 | PDOC PROGRESS REPORT ---
Subjective Progress Note for:: 04/29/19 Subjective:: Feels a lot better this am Tolerating reg diet Reason For Visit: PELVIC SEPSIS Physical Exam Vital Signs: Temp Pulse Resp BP Pulse Ox 98.1 F 65 18 130/83 H 97 04/28/19 22:49 04/28/19 22:49 04/28/19 22:49 04/28/19 22:49 04/28/19 22:49 Intake & Output 04/28/19 04/29/19 04/30/19 06:59 06:59 06:59 Intake Total 2780 2800 Output Total 1550 Balance 1230 2800 Weight 85.6 kg 86.3 kg Exam: abdomen is soft with minimal pelvic tenderness Afebrile Results Laboratory Results: 04/27/19 05:49 04/27/19 05:49 Impressions: Abdomen/Pelvis CT 04/26/19 02:11 IMPRESSION: Fatty infiltrative change to the liver. Abundant stool in the colon. Splenic cyst. TECHNICAL DOCUMENTATION: Quality ID # 436: Final reports with documentation of one or more dose reduction techniques (e.g., Automated exposure control, adjustment of the mA and/or kV according to patient size, use of iterative reconstruction technique) copyright 2011 [employer]- All Rights Reserved Transvaginal US 04/26/19 06:05 IMPRESSION: Unremarkable exam. Chest X-Ray 04/27/19 00:00 IMPRESSION: NO SIGNIFICANT RADIOGRAPHIC FINDING IN THE CHEST. Assessment & Plan - Diagnosis (1) Abdominal pain Qualifiers: Abdominal location: generalized Qualified Code(s): R10.84 - Generalized abdominal pain Is this a current diagnosis for this admission?: Yes (2) Polycystic ovarian syndrome Is this a current diagnosis for this admission?: Yes (3) PID (acute pelvic inflammatory disease) Is this a current diagnosis for this admission?: Yes (4) Fever Is this a current diagnosis for this admission?: Yes (5) Leukocytosis Is this a current diagnosis for this admission?: Yes - Time Time Spent with patient: 15-24 minutes - Plan Summary Plan Summary: OK to discharge today from general surgical viewpoint Continue po antibiotics per watch dial stoner Will follow in the surgical clinic in 2 weeks
[2019-04-29] MEDS: CEFTRIAXONE SODIUM 1,000 MG in DEXTROSE 5%-WATER 50 ML IV SCH (09:19)
--- NOTE | 2019-04-29 11:17 | PDOC DISCHARGE SUMMARY ---
General - Admit/Disc Date/PCP Admission Date/Primary Care Provider: 04/26/19 12:03 Discharge Date: 04/29/19 - Discharge Diagnosis (1) Abdominal pain Is this a current diagnosis for this admission?: Yes (2) Leukocytosis Is this a current diagnosis for this admission?: Yes (3) PID (acute pelvic inflammatory disease) Is this a current diagnosis for this admission?: Yes (4) Polycystic ovarian syndrome Is this a current diagnosis for this admission?: Yes - Additional Information Resuscitation Status: Full Code Discharge Diet: As Tolerated, Regular Discharge Activity: Activity As Tolerated, No Lifting Over 10 Pounds, Pelvic Rest, No tub bath Home Medications: No Home Medications 04/26/19 History of Present Illness Patient complains of: Abdominal pain History of Present Illness: YOON GILLILAND is a 33 year old female, who had acute onset of lower abdominal pain yesterday a few days ago. It initially subsided and then recurred and has been persistent and severe since. Patient has had nausea and vomiting and fever. Patient denies any prior episodes of this severe and persistent pain. Patient has had some vaginal discharge but she notes that that is not unusual for her. No hematuria. No flank pain. No recent trauma. Hospital Course Hospital Course: Hospital course was essentially uneventful. She remained afebrile and her leukocytosis resolved. Patient was ambulating and voiding without difficulty. Patient denied chest pain, shortness of breath, fever/chills or nausea/vomiting. Her postoperative pain was controlled with medication. Physical Exam - Physical Exam Vital Signs: Temp Pulse Resp BP Pulse Ox 98.0 F 56 L 18 132/73 H 97 04/29/19 07:47 04/29/19 07:47 04/29/19 07:47 04/29/19 07:47 04/29/19 07:47 Intake & Output 04/28/19 04/29/19 04/30/19 06:59 06:59 06:59 Intake Total 2780 2800 50 Output Total 1550 Balance 1230 2800 50 Weight 85.6 kg 86.3 kg General appearance: PRESENT: no acute distress Respiratory exam: PRESENT: clear to auscultation fredy Cardiovascular exam: PRESENT: RRR GI/Abdominal exam: PRESENT: normal bowel sounds, soft - Appropriate tenderness Extremities exam: ABSENT: calf tenderness, clubbing, full ROM, joint swelling, pedal edema, tenderness, +1 edema, +2 edema, other Result Laboratory Results: 04/27/19 05:49 04/27/19 05:49 04/26/19 14:30 Peritoneal Gram Stain - Final Impressions: Abdomen/Pelvis CT 04/26/19 02:11 IMPRESSION: Fatty infiltrative change to the liver. Abundant stool in the colon. Splenic cyst. TECHNICAL DOCUMENTATION: Quality ID # 436: Final reports with documentation of one or more dose reduction techniques (e.g., Automated exposure control, adjustment of the mA and/or kV according to patient size, use of iterative reconstruction technique) copyright 2011 [employer]- All Rights Reserved Transvaginal US 04/26/19 06:05 IMPRESSION: Unremarkable exam. Chest X-Ray 04/27/19 00:00 IMPRESSION: NO SIGNIFICANT RADIOGRAPHIC FINDING IN THE CHEST. Plan Discharge Plan: 1. Discharge home 2. Complete full course of antibiotics 3. Follow up with UX MANAGER in 2 weeks Time Spent: Greater than 30 Minutes Acute Heart Failure - Is this a Heart Failure Patient?: No
[2019-04-29 11:22] VITALS: BP 120/64
== END 2019-04-29 12:44 | disposition home or self-care (01) | DRG 750 ==
LOC: ER 23:18 → EH 04-26 12:03 → 2N 04-26 16:36
PROVIDERS: ADMIT Surgery; ATTEND Obstetrics & Gynecology Gynecology
PROC: 0DTJ4ZZ Resection of Appendix, Percutaneous Endoscopic Approach (ICD-10-PCS; principal; 2019-04-26 13:15)
DX: N73.9 Female pelvic inflammatory disease, unspecified (principal); D72.829 Elevated white blood cell count, unspecified; E28.2 Polycystic ovarian syndrome; R10.84 Generalized abdominal pain; K59.00 Constipation, unspecified
CPT/HCPCS: 36415; 51702; 71046; 74176; 74177; 76830; 790; 80048; 80053; 81001; 83605; 83690; 84703; 85025; 85027; 87040; 87070; 87075; 87077; 87086; 87205; 87210; 87491; 87591; 88304; 93976; 94799; 96360; 99285; J0330; J0696; J1170; J2001; J2250; J2270; J2405; J2704; J3010; J3490; J7030; J7060; S0119

== ENCOUNTER 2019-05-09 14:06 | Emergency (ER) | payer SELFPAY ==
[2019-05-09] MEDS ORDERED: MORPHINE SULFATE 10 MG/ML INJ IV ONE (14:47)
[2019-05-09] MEDS ORDERED: ONDANSETRON HCL INJ/PF 4 MG/2 ML SDV IV ONE ×2 (14:47→19:42)
--- NOTE | 2019-05-09 14:48 | ER Document Report ---
ED Medical Screen (RME) - General Chief Complaint: Abdominal Pain Stated Complaint: ABDOMINAL PAIN Time Seen by Provider: 05/09/19 14:40 Mode of Arrival: Ambulatory Information source: Patient Notes: Patient is a 33-year-old female presented to the emergency department chief complaint of low abdominal pain. Patient reports approximately 10 days ago she had a laparoscopic appendectomy done. She also reports at that time she was diagnosed with a pelvic infection. Patient states she is taking her antibiotics as prescribed, states that she has been taking Tylenol for the pain however the pain is significantly improving. Patient reports nausea but denies any vomiting or diarrhea. Exam: Tenderness to palpation to the low abdomen. I have greeted and performed a rapid initial assessment of this patient. A comprehensive ED assessment and evaluation of the patient, analysis of test results and completion of the medical decision making process will be conducted by additional ED providers. I have specifically instructed the patient or family members with the patient to immediately return to any nursing staff should anything change in the patient's condition or with their chief complaint. This medical record was dictated with voice recognizing software. There may be grammatical, syntax errors that are unintended. TRAVEL OUTSIDE OF THE [place] IN LAST 30 DAYS: No - Related Data Allergies/Adverse Reactions: No Known Allergies Allergy (Verified 07/11/17 00:22) Past Medical History Renal/ Medical History: Reports: Hx Ovarian Cysts. Denies: Hx Peritoneal Dialysis Past Surgical History: Reports: Hx Section - Immunizations Immunizations up to date: Yes Hx Diphtheria, Pertussis, Tetanus Vaccination: Yes Physical Exam - Vital signs Vitals: Temp Pulse Resp BP Pulse Ox 97.6 F 88 18 123/78 98 05/09/19 14:14 05/09/19 14:14 05/09/19 14:14 05/09/19 14:14 05/09/19 14:14 Course - Vital Signs Vital signs: Temp Pulse Resp BP Pulse Ox 97.6 F 88 18 123/78 98 05/09/19 14:14 05/09/19 14:14 05/09/19 14:14 05/09/19 14:14 05/09/19 14:14
[2019-05-09 15:26] LABS: ABSOLUTE EOSINOPHILS # (AUTO) 0.1 10^3/uL (0.0-0.6); ABSOLUTE LYMPHOCYTES (AUTO) 2.3 10^3/uL (0.5-4.7); ABSOLUTE MONOCYTES (AUTO) 0.4 10^3/uL (0.1-1.4); ABSOLUTE NEUT (AUTO) 6.3 10^3/uL (1.7-8.2); BASOPHILS % (AUTO) 0.5 % (0-2); EOSINOPHILS % (AUTO) 0.8 % (0-6); HEMATOCRIT 37.8 % (36.0-47.0); HEMOGLOBIN 12.6 g/dL (12.0-15.5); LYMPHOCYTES % (AUTO) 25.3 % (13-45); MEAN CORPUSCULAR HEMOGLOBIN 25.1 pg (27.0-33.4); MEAN CORPUSCULAR HGB CONC 33.3 g/dL (32.0-36.0); MEAN CORPUSCULAR VOLUME 75 fl (80-97); MONOCYTES % (AUTO) 4.1 % (3-13); PLATELET COUNT 394 10^3/uL (150-450); RED BLOOD COUNT 5.01 10^6/uL (3.72-5.28); RED CELL DISTRIBUTION WIDTH 13.7 % (11.5-14.0); SEGMENTED NEUTROPHILS % (AUTO) 69.3 % (42-78); TOTAL CELLS COUNTED % (AUTO) 100 %; WHITE BLOOD COUNT 9.1 10^3/uL (4.0-10.5)
[2019-05-09 15:31] LABS: APPEARANCE,URINE CLEAR; BILIRUBIN,URINE NEGATIVE (NEGATIVE); COLOR,URINE YELLOW; GLUCOSE, URINE NEGATIVE (NEGATIVE); KETONES,URINE NEGATIVE (NEGATIVE); LEUKOCYTE ESTERASE,URINE TRACE (NEGATIVE); NITRITE,URINE NEGATIVE (NEGATIVE); PROTEIN,URINE NEGATIVE (NEGATIVE); URINE SPECIFIC GRAVITY 1.018; UROBILINOGEN,URINE NEGATIVE mg/dL (<2.0)
[2019-05-09 15:43] LABS: ALANINE AMINOTRANSFERASE 32 U/L (9-52); ALBUMIN 4.5 g/dL (3.5-5.0); ALKALINE PHOSPHATASE 38 U/L (38-126); ANION GAP 10 (5-19); ASPARTATE AMINO TRANSFERASE 25 U/L (14-36); BILIRUBIN,DIRECT 0.2 mg/dL (0.0-0.4); BILIRUBIN,TOTAL 0.3 mg/dL (0.2-1.3); BLOOD UREA NITROGEN 14 mg/dL (7-20); CALCIUM 9.8 mg/dL (8.4-10.2); CARBON DIOXIDE 26 mmol/L (22-30); CHLORIDE 104 mmol/L (98-107); GLUCOSE 156 mg/dL (75-110); POTASSIUM 4.4 mmol/L (3.6-5.0); SODIUM 139.9 mmol/L (137-145); TOTAL PROTEIN 7.7 g/dL (6.3-8.2)
--- NOTE | 2019-05-09 16:24 | RADIOLOGY REPORT (SQ) ---
EXAM DESCRIPTION: U/S NON OB PEL TV W/DOPPLER COMPLETED DATE/TIME: 05/09/2019 3:51 pm REASON FOR STUDY: pelvic pain COMPARISON: 04/26/19. TECHNIQUE: Dynamic and static grayscale images acquired of the pelvis via transvaginal approach and recorded on PACS. Additional selected color Doppler and spectral images recorded. LIMITATIONS: None. FINDINGS: UTERUS: Normal size measuring 8.6 x 5.0 x 4.0 cm. Heterogeneous appearance with evidence of prior . ENDOMETRIAL STRIPE: Endometrial stripe is visualized and measures 7.7 mm. No focal thickening. CERVIX: No nabothian cysts. RIGHT OVARY AND DOPPLER: Normal size measuring 2.6 x 2.4 x 3.2 cm. No worrisome masses. Normal arteri al vascular flow without evidence for torsion. LEFT OVARY AND DOPPLER: Normal size measuring 3.0 x 2.6 x 3.3 cm. No worrisome masses. Normal arteria l vascular flow without evidence for torsion. FREE FLUID: Trace free fluid within the cul de sac. OTHER: No other significant finding. IMPRESSION: Trace free pelvic fluid, likely physiologic. Otherwise, unremarkable pelvic ultrasound . TECHNICAL DOCUMENTATION: JOB ID: [id number] [employer] All Rights Reserved Rev-03/17 Reading location - IP/workstation name: [email or web address]
--- NOTE | 2019-05-09 17:54 | RADIOLOGY REPORT (SQ) ---
EXAM DESCRIPTION: CT ABD/PELVIS WITH IV ONLY COMPLETED DATE/TIME: 05/09/2019 5:42 pm REASON FOR STUDY: pelvic pain COMPARISON: 04/26/2019 TECHNIQUE: CT scan of the abdomen and pelvis performed using helical scanning technique with dynamic intravenous contrast injection. No oral contrast. Images reviewed with lung, soft tissue, and bone windows. Reconstructed coronal and sagittal MPR images reviewed. Delayed images for evaluation of the urinary system also acquired. All images stored on PACS. All CT scanners at this facility use dose modulation, iterative reconstruction, and/or weight based d osing when appropriate to reduce radiation dose to as low as reasonably achievable (ALARA). [facility]: Dose Right [facility]: CareDose [facility]: Dose Right [facility]: Teradose 4D [facility]: WebChalet CONTRAST TYPE AND DOSE: contrast/concentration: Isovue 350.00 mg/ml; Total Contrast Delivered: 98.0 ml; Total Saline Delivered: 72.0 ml RENAL FUNCTION: GFR > 60. RADIATION DOSE: CT Rad equipment meets quality standard of care and radiation dose reduction techniq ues were employed. CTDIvol: 12.3 - 16.7 mGy. DLP: 1674 mGy-cm.. LIMITATIONS: None. FINDINGS: LOWER CHEST: No significant findings. No nodules or infiltrates. LIVER: Steatosis. Normal size. No masses. No dilated ducts. SPLEEN: Normal size. Small cyst 2 cm. PANCREAS: No masses. No significant calcifications. No adjacent inflammation or peripancreatic fluid collections. Pancreatic duct not dilated. GALLBLADDER: No identified stones by CT criteria. No inflammatory changes to suggest cholecystitis. ADRENAL GLANDS: No significant masses or asymmetry. RIGHT KIDNEY AND URETER: No solid masses. No significant calcifications. No hydronephrosis or hyd roureter. LEFT KIDNEY AND URETER: No solid masses. No significant calcifications. No hydronephrosis or hydr oureter. AORTA AND VESSELS: No aneurysm. No dissection. Renal arteries, SMA, celiac without stenosis. RETROPERITONEUM: No retroperitoneal adenopathy, hemorrhage or masses. BOWEL AND PERITONEAL CAVITY: No masses or inflammatory changes. No free fluid or peritoneal masses. APPENDIX: Surgically absent. PELVIS: No mass. No free fluid. Normal bladder. ABDOMINAL WALL: No masses. No hernias. BONES: No significant or acute findings. OTHER: No other significant finding. IMPRESSION: No significant or acute findings. TECHNICAL DOCUMENTATION: JOB ID: [id number] Quality ID # [id number]: Final reports with documentation of one or more dose reduction techniques (e.g., Au tomated exposure control, adjustment of the mA and/or kV according to patient size, use of iterative reconstruction technique) 2010 [employer]- All Rights Reserved Reading location - IP/workstation name: [email or web address]
--- NOTE | 2019-05-09 19:08 | ER Document Report ---
Addendum entered and electronically signed by EDD CAMPBELL PA 05/10/19 03:52: Course - Re-evaluation Re-evalutation: Dr. Seaman did evaluate the patient. She did speak with me afterwards. She states that unfortunately patient was not provided with pain medication at discharge previously, she does not feel patient has an acute abdomen, work-up is reassuring, she states that she is having an expected amount of pain from PID which has not resolved yet. She also states that patient has not been taking her antibiotics as she is supposed to, patient thought 1 of her antibiotics was a pain medication and was only taking it as needed and it was not working. This was clarified for patient, she is taking both doxycycline and Flagyl now, she was provided with pain medication, she is supposed to see Dr. Pereira in the office tomorrow (this is a new plan), and she is to return if she worsens. This was discussed in detail. I did discuss with patient afterwards, she is very grateful, she was provided with pain and nausea medication to go home with as well as prescription, she states she will follow-up tomorrow and return if she worsens. Patient smiling and well-appearing at time of discharge. - Vital Signs Vital signs: Temp Pulse Resp BP Pulse Ox 97.8 F 67 16 121/76 99 05/09/19 21:41 05/09/19 21:41 05/09/19 21:41 05/09/19 21:41 05/09/19 21:41 - Laboratory Result Diagrams: 05/09/19 14:50 05/09/19 14:50 Laboratory results interpreted by me: 05/09/19 05/09/19 05/09/19 14:50 14:50 14:50 MCV 75 L MCH 25.1 L Glucose 156 H Urine Blood MODERATE H Ur Leukocyte Esterase TRACE H Original Note: ED General <SIMBA WOOD - Last Filed: 05/09/19 19:28> - General Mode of Arrival: Ambulatory TRAVEL OUTSIDE OF THE [place] IN LAST 30 DAYS: No <ISREAL JANE - Last Filed: 05/09/19 20:24> <EDD CAMPBELL - Last Filed: 05/09/19 21:15> - General Chief Complaint: Abdominal Pain Stated Complaint: ABDOMINAL PAIN Time Seen by Provider: 05/09/19 14:40 Notes: Patient is a 33-year-old female presents to the emergency department for generalized pelvic pain. Patient states on 04/26 she presented to this facility for generalized abdominal pain. Patient states she inevitably was taken to the operating room. States she had a laparoscopy done with a appendectomy. Patient states she was told that there was an infection in her pelvic region. States she is currently taking doxycycline and Flagyl. Patient states initially her pain was feeling a lot better. States she was pain-free. States last evening she started with generalized pelvic abdominal pain. States this morning she called her [facility] Dr. encarnacion's office. They advised her to come to the e mergency room. Patient's denying any dysuria or vaginal discharge. States the last time she had a bowel movement was today. States "I has been able to poop normally." Patient is denying any nausea, vomiting, fevers. Patient states "the pain I have now is like before I had surgery." (ISREAL SHEN) - Related Data Allergies/Adverse Reactions: No Known Allergies Allergy (Verified 07/11/17 00:22) Past Medical History - General Information source: Patient - Social History Smoking Status: Never Smoker Chew tobacco use (# tins/day): No Frequency of alcohol use: None Drug Abuse: None Family History: Reviewed & Not Pertinent Patient has suicidal ideation: No Patient has homicidal ideation: No Renal/ Medical History: Reports: Hx Ovarian Cysts. Denies: Hx Peritoneal Dialysis Past Surgical History: Reports: Hx Appendectomy, Hx Section - Immunizations Immunizations up to date: Yes Hx Diphtheria, Pertussis, Tetanus Vaccination: Yes <ISREAL JANE - Last Filed: 05/09/19 20:24> Review of Systems - Review of Systems Constitutional: denies: Fever EENT: No symptoms reported Cardiovascular: No symptoms reported Respiratory: No symptoms reported Gastrointestinal: See HPI Genitourinary: See HPI Female Genitourinary: See HPI Musculoskeletal: No symptoms reported Skin: No symptoms reported Hematologic/Lymphatic: No symptoms reported Neurological/Psychological: No symptoms reported <ISREAL JANE - Last Filed: 05/09/19 20:24> Physical Exam <ISREAL JANE - Last Filed: 07/10/19 20:24> - Vital signs Vitals: Temp Pulse Resp BP Pulse Ox 97.6 F 88 18 123/78 98 05/09/19 14:14 05/09/19 14:14 05/09/19 14:14 05/09/19 14:14 05/09/19 14:14 - Notes Notes: GENERAL: Alert, interacts well. No acute distress. HEAD: Normocephalic, atraumatic. EYES: Pupils equal, round, and reactive to light. Extraocular movements intact. ENT: Oral mucosa moist, tongue midline. NECK: Full range of motion. Supple. Trachea midline. LUNGS: Clear to auscultation bilaterally, no wheezes, rales, or rhonchi. No respiratory distress. HEART: Regular rate and rhythm. No murmur ABDOMEN: Soft, no McBurney's point tenderness, no [place] sign noted. Non- distended. Bowel sounds present in all 4 quadrants. Generalized pelvic suprapub ic abdominal pain noted. EXTREMITIES: Moves all 4 extremities spontaneously. No edema, normal radial and dorsalis pedis pulses bilaterally. No cyanosis. BACK: no cervical, thoracic, lumbar midline tenderness. No saddle anesthesia, normal distal neurovascular exam. NEUROLOGICAL: Alert and oriented x3. Normal speech. cranial nerves II through XII grossly intact PSYCH: Normal affect, normal mood. SKIN: Warm, dry, normal turgor. No rashes or lesions noted. (ISREAL JANE) Course - Laboratory Result Diagrams: 05/09/19 14:50 05/09/19 14:50 <SIMBA WOOD - Last Filed: 05/09/19 19:28> - Laboratory Result Diagrams: 05/09/19 14:50 05/09/19 14:50 <ISREAL JANE - Last Filed: 05/09/19 20:24> - Laboratory Result Diagrams: 05/09/19 14:50 05/09/19 14:50 <EDD CAMPBELL - Last Filed: 05/09/19 21:15> - Re-evaluation Re-evalutation: 05/09/19 19:28 I personally and independently obtained patient history and examined the patient and have reviewed the APC's note, reviewed, discussed and agree with their assessment and plan. HISTORY OF PRESENT ILLNESS: Patient is a 33-year-old female that presents to the emergency department for chief complaint of lower abdominal pain. Patient currently on antibiotics for PID and had recent ex lap and appendectomy. PHYSICAL EXAMINATION: Vital signs reviewed, nursing noted reviewed. GENERAL: Well-appearing, well-nourished and in no acute distress. HEAD: Atraumatic, normocephalic. EYES: Eyes appear normal, conjunctiva are normal. ENT: nares patent, oropharynx clear without exudates. Moist mucous membranes. NECK: Normal range of motion, supple without lymphadenopathy LUNGS: Breath sounds clear to auscultation bilaterally and equal. No wheezes rales or rhonchi. HEART: Regular rate and rhythm without murmurs ABDOMEN: Soft, suprapubic tenderness. No rebound, guarding, or rigidity. No masses appreciated. EXTREMITIES: Nontender, good range of motion, no pitting or edema. NEUROLOGICAL: No focal neurological deficits. Moves all extremities spo ntaneously Motor and sensory grossly intact on exam. PSYCH: Normal mood, normal affect. SKIN: Warm, Dry, normal turgor, no rashes or lesions noted on exposed MEDICAL DECISION MAKING: Patient's lab work is improved. Her imaging today is unremarkable. Patient is moderately tender in her suprapubic region. Recommend consultation with gynecology for further recommendations and evaluation in the emergency room. Please review detail APC documentation. *Note is created using voice recognition software and may contain spelling, syntax or grammatical errors. (SIMBA WOOD) Patient is a 33-year-old female recent appendectomy with diagnosis of pelvic inflammatory disease. Admission for IV antibiotics due to pelvic inflammatory disease. Patient states initially she was feeling a lot better. States last night she had a sudden onset of increased lower pelvic pain. Patient represents to the emergency room. Initial lab results showed no signs of leukocytosis, patient is afebrile. US WNL. I have discussed this case with [facility] Dr. Seaman. She is suggesting CT imaging of the patient's abdomen. Dr. Seaman then calls the emergency room, states this patient was operated on by surgicalist Dr. Clinton. She is suggesting I reach out to surgery as they are the ones that did the operation. I have discussed this case with Dr. Garcia's OR nurse. She states Dr. Garcia is currently in surgery. States Dr. Garcia will speak with Dr. Seaman about patient care. I did not speak to Dr. Garcia directly. Dr. Garcia calls the emergency department stating I should consult him as needed with CT results. CT images showed no signs of abnormalities. I discussed this case with my attending Dr. Everett Wood. She has evaluated the patient at bedside. Her concern is that due to the patient's history of PCOS with negative CT and ultrasound she may have an intermittent torsion. Her recommendation is to reach out to [facility] for continued treatment modalities. 05/09/19 19:11 I have discussed this case with [facility] Dr. Seaman. She states she is currently in the middle of the delivery. States she will come to the emergency department to evaluate the patient. 05/09/19 19:25 Nursing staff brings to my attention that the patient is complaining of a gener alized headache and is also very nauseated. Requesting antinausea medication. Patient continues to deny need or want for more IV pain medication. States morphine initially "made me feel loopy." 05/09/19 20:24 Patient care and report transferred to Edd Campbell PA-C for evaluation by [facility] Dr. Seaman and further treatment modalities. (ISREAL JANE) - Vital Signs Vital signs: Temp Pulse Resp BP Pulse Ox 98.0 F 72 16 122/88 H 100 05/09/19 19:50 05/09/19 19:50 05/09/19 19:50 05/09/19 19:50 05/09/19 19:50 - Laboratory Laboratory results interpreted by me: 05/09/19 05/09/19 05/09/19 14:50 14:50 14:50 MCV 75 L MCH 25.1 L Glucose 156 H Urine Blood MODERATE H Ur Leukocyte Esterase TRACE H Discharge <SIMBA WOOD - Last Filed: 05/09/19 19:28> <ISREAL JANE - Last Filed: 05/09/19 20:24> <EDD CAMPBELL - Last Filed: 05/09/19 21:15> - Discharge Clinical Impression: Abdominal pain Qualifiers: Abdominal location: generalized Qualified Code(s): R10.84 - Generalized abdominal pain Condition: Stable Disposition: HOME, SELF-CARE Additional Instructions: Your work-up and evaluation is reassuring at this time. Your symptoms are most likely from the PID you are being treated for. If needed take the pain medication provided, take the nausea medication with this. You may need an [id number] stool softener to because this can cause constipation. Take your antibiotics as prescribed. Please see Dr. Pereira in the office tomorrow as discussed with Dr. Jurgen walters. Return if you worsen including vomiting, fever/chills, severe abdominal pain, or any other concerning or worsening symptoms. Prescriptions: Ondansetron [Zofran Odt 4 mg Tablet] 1 - 2 tab PO Q4H PRN #15 tab.rapdis PRN Reason: For Nausea/Vomiting Oxycodone HCl/Acetaminophen [Percocet 5-325 mg Tablet] 1 - 2 tab PO TID PRN #15 tablet PRN Reason: Referrals: BARBARA PEREIRA MD [ACTIVE STAFF] - Follow up tomorrow
[2019-05-09] MEDS ORDERED: ACETAMINOPHEN 325 MG TABLET PO ONE (19:29)
[2019-05-09] MEDS ORDERED: HYDROCODONE/ACETAMINOPHEN 5-325 MG (6 TAB/ER DISP) PO PRN (21:12)
[2019-05-09] MEDS ORDERED: ONDANSETRON ODT 4 MG TAB (6 TAB/ER DISP) PO PRN (21:13)
[2019-05-09 21:48] VITALS: BP 121/76
--- NOTE | 2019-05-09 21:51 | PDOC CONSULTATION ---
Consultation Consult Date: 05/09/19 Attending physician:: ISREAL JANE Provider Consulted: JAZMIN VELASQUEZ Consult reason:: abdominal pain. History of Present Illness Admission Date/PCP: in ER 05/09/2019 Patient complains of: midline lower abdominal pain History of Present Illness: YOON GILLILAND is a 33 year old female with unknown LMP. She reports that she was seen in ER and admitted for appendectomy on 04/26. Review of chart reveals patient seen in consultation by Dr. Gallagher and then Dr. Clinton performed Op L/S with Appendectomy (which was normal path) then intraoperatively Dr. Hess consulted due to suspected PID. Patient was then admitted to [facility] and given IV abx. GC/CT was negative at that visit. Urine cx also unremarkable and Wet prep negative at that visit also. She was discharged by Dr. Palacios on 04/29 Doxy/Flagyl and Diflucan given at discharge. She was not however given any pain medications at discharge. She very evidently on exam and history has PCOS. She reports that she was in significant pain after discharge but was getting better but having midline pain today and was unsure what to do so she came in to the ER. She is having some nausea with abx but is able to keep them down and able to tolerate po fluids/food. Past Medical History LMP: unknown Gynecological Infection: Yes Social History Information Source: Patient Lives with: Family Smoking Status: Never Smoker Frequency of Alcohol Use: None Hx Recreational Drug Use: No Hx Prescription Drug Abuse: No Family History Family History: Reviewed & Not Pertinent Parental Family History Reviewed: No Children Family History Reviewed: NA Sibling(s) Family History Reviewed.: NA Medication/Allergy Home Medications: Ondansetron [Zofran Odt 4 mg Tablet] 1 - 2 tab PO Q4H PRN #15 tab.rapdis 0 05/09/19 Oxycodone HCl/Acetaminophen [Percocet 5-325 mg Tablet] 1 - 2 tab PO TID PRN #15 tablet 05/09/19 Allergies/Adverse Reactions: No Known Allergies Allergy (Verified 07/11/17 00:22) Review of Systems Constitutional: ABSENT: chills, fever(s), headache(s), weight gain, weight loss Gastrointestinal: PRESENT: abdominal pain, nausea, other. ABSENT: constipation, diarrhea, hematemesis, hematochezia, vomiting Genitourinary: ABSENT: dysuria, hematuria Neurological: ABSENT: abnormal gait, abnormal speech, confusion, dizziness, focal weakness, syncope Physical Exam - Physical Exam Vital Signs: Temp Pulse Resp BP Pulse Ox 98.0 F 72 16 122/88 H 100 05/09/19 19:50 05/09/19 19:50 05/09/19 19:50 05/09/19 19:50 05/09/19 19:50 Intake & Output 05/08/19 05/09/19 05/10/19 06:59 06:59 06:59 Weight 85.9 kg General appearance: PRESENT: no acute distress, well-developed, well-nourished Head exam: PRESENT: atraumatic, normocephalic Respiratory exam: PRESENT: clear to auscultation fredy, symmetrical, unlabored Cardiovascular exam: PRESENT: RRR. ABSENT: diastolic murmur, rubs, systolic murmur GI/Abdominal exam: PRESENT: normal bowel sounds, soft, tenderness - mild suprapubic ttp, mild ttp around incisions from Appendectomy. No rebound, no rovsigs. No e/o acute abdomen. ABSENT: distended, guarding, mass, organolmegaly, rebound Rectal exam: PRESENT: deferred Extremities exam: PRESENT: full ROM. ABSENT: calf tenderness, clubbing, pedal edema Musculoskeletal exam: PRESENT: ambulatory Neurological exam: PRESENT: alert, awake, oriented to person, oriented to place, oriented to time, oriented to situation, CN II-XII grossly intact. ABSENT: motor sensory deficit Result Laboratory Results: 05/09/19 14:50 05/09/19 14:50 05/09/19 05/09/19 05/09/19 14:50 14:50 14:50 WBC 9.1 RBC 5.01 Hgb 12.6 Hct 37.8 MCV 75 L MCH 25.1 L MCHC 33.3 RDW 13.7 Plt Count 394 Seg Neutrophils % 69.3 Lymphocytes % 25.3 Monocytes % 4.1 Eosinophils % 0.8 Basophils % 0.5 Absolute Neutrophils 6.3 Absolute Lymphocytes 2.3 Absolute Monocytes 0.4 Absolute Eosinophils 0.1 Absolute Basophils 0.0 Sodium 139.9 Potassium 4.4 Chloride 104 Carbon Dioxide 26 Anion Gap 10 BUN 14 Creatinine 0.62 Est GFR ( Amer) > 60 Est GFR (Non-Af Amer) > 60 Glucose 156 H Calcium 9.8 Total Bilirubin 0.3 AST 25 ALT 32 Alkaline Phosphatase 38 Total Protein 7.7 Albumin 4.5 Serum HCG, Qual NEGATIVE Urine Color Urine Appearance Urine pH Ur Specific [place] Urine Protein Urine Glucose (UA) Urine Ketones Urine Blood Urine Nitrite Ur Leukocyte Esterase Urine WBC (Auto) Urine RBC (Auto) 05/09/19 14:50 WBC RBC Hgb Hct MCV MCH MCHC RDW Plt Count Seg Neutrophils % Lymphocytes % Monocytes % Eosinophils % Basophils % Absolute Neutrophils Absolute Lymphocytes Absolute Monocytes Absolute Eosinophils Absolute Basophils Sodium Potassium Chloride Carbon Dioxide Anion Gap BUN Creatinine Est GFR ( Amer) Est GFR (Non-Af Amer) Glucose Calcium Total Bilirubin AST ALT Alkaline Phosphatase Total Protein Albumin Serum HCG, Qual Urine Color YELLOW Urine Appearance CLEAR Urine pH 5.0 Ur Specific [place] 1.018 Urine Protein NEGATIVE Urine Glucose (UA) NEGATIVE Urine Ketones NEGATIVE Urine Blood MODERATE H Urine Nitrite NEGATIVE Ur Leukocyte Esterase TRACE H Urine WBC (Auto) 1 Urine RBC (Auto) 2 Impressions: Transvaginal US 05/09/19 14:45 IMPRESSION: Trace free pelvic fluid, likely physiologic. Otherwise, unremarkable pelvic ultrasound. Abdomen/Pelvis CT 05/09/19 17:05 IMPRESSION: No significant or acute findings. Status: Imported from PACS Assessment & Plan - Diagnosis (1) Abdominal pain Qualifiers: Abdominal location: generalized Qualified Code(s): R10.84 - Generalized abdominal pain Is this a current diagnosis for this admission?: Yes Plan: normal postop pain from appendectomy and unmedicated with po pain meds postoperatively. mild lower abd pain possible from surgery and resolving PID. Very benign postoperative abd exam. Incisions are c/d/i and no e/o infection. no hematoma/erythema. Extensive discussion with patient regarding expected course of postop appendectomy and suspected PID (non STD source) and also regarding PCOS which is not a cause of her pain at this time. Reviewed normal US and CT scan and reviewed normal WBC. Patient and family members reassured after approp education regarding expected postop course for appendectomy and presumptive PID. (2) PID (acute pelvic inflammatory disease) Is this a current diagnosis for this admission?: Yes Plan: continue doxy/flagyl for PID and complete abx. Patient was never given pain meds. Pain rx and antiemetics prn f/u in office in am (3) Polycystic ovarian syndrome Is this a current diagnosis for this admission?: Yes Plan: exam and history c/w PCOS - NOT a cause of her abdominal pain at this time. - Time Time Spent: 30 to 50 Minutes Critical Time spent with patient: 15-24 minutes Medications reviewed and adjusted accordingly: Yes Anticipated discharge: Home Within: within 24 hours - Inpatient Certification Based on my medical assessment, after consideration of the patient's comorbidities, presenting symptoms, or acuity I expect that the services needed warrant INPATIENT care.: No I certify that my determination is in accordance with my understanding of Medicare's requirements for reasonable and necessary INPATIENT services [42 CFR 412.3e].: No
== END 2019-05-09 21:54 | disposition home or self-care (01) ==
LOC: ER 14:06
DX: R10.84 Generalized abdominal pain (principal); R10.2 Pelvic and perineal pain; Z98.890 Other specified postprocedural states
CPT/HCPCS: 96376; 99284; 96374; 96375; 36415; 84703; 85025; 80053; 81001; 76830; 93976; 74177; J2270; J2405

== ENCOUNTER 2019-09-06 11:00 | Emergency (ER) | payer MEDICAID, OTHER ==
[2019-09-06] MEDS ORDERED: KETOROLAC TROMETHAMINE INJ/PF 30 MG/1 ML SDV IM ONE (11:47)
[2019-09-06] MEDS ORDERED: ONDANSETRON 4 MG TAB.RAPDIS PO ONE (11:47)
--- NOTE | 2019-09-06 11:47 | ER Document Report ---
ED Medical Screen (RME) - General Chief Complaint: Pelvic Pain Stated Complaint: FEVER/VOMITING Time Seen by Provider: 09/06/19 11:43 Mode of Arrival: Ambulatory Information source: Patient Notes: 33-year-old female presented to ED for complaint of severe pelvic low back pain bilaterally x2 days. She states last night she had a temperature of 101. She states she was vomiting most of the night. She has burning with urination. She states she was hospitalized about 3 months ago and had a surgery for possible PID. She does have PCOS. She states she does not smoke drink or use any drugs. She states she is . I have greeted and performed a rapid initial assessment of this patient. A comprehensive ED assessment and evaluation of the patient, analysis of test results and completion of medical decision making process will be conducted by an additional ED providers. TRAVEL OUTSIDE OF THE [place] IN LAST 30 DAYS: No - Related Data Allergies/Adverse Reactions: No Known Allergies Allergy (Verified 07/11/17 00:22) Past Medical History Renal/ Medical History: Reports: Hx Ovarian Cysts. Denies: Hx Peritoneal Dialysis Past Surgical History: Reports: Hx Appendectomy, Hx Section - Immunizations Immunizations up to date: Yes Hx Diphtheria, Pertussis, Tetanus Vaccination: Yes Physical Exam - Vital signs Vitals: Temp Pulse Resp BP Pulse Ox 97.7 F 69 16 133/85 H 100 09/06/19 11:14 09/06/19 11:14 09/06/19 11:14 09/06/19 11:14 09/06/19 11:14 Course - Vital Signs Vital signs: Temp Pulse Resp BP Pulse Ox 97.7 F 69 16 133/85 H 100 09/06/19 11:14 09/06/19 11:14 09/06/19 11:14 09/06/19 11:14 09/06/19 11:14
--- NOTE | 2019-09-06 12:31 | ER Document Report ---
ED General - General Chief Complaint: Pelvic Pain Stated Complaint: FEVER/VOMITING Time Seen by Provider: 09/06/19 11:43 Mode of Arrival: Ambulatory TRAVEL OUTSIDE OF THE [place] IN LAST 30 DAYS: No - Related Data Allergies/Adverse Reactions: No Known Allergies Allergy (Verified 09/06/19 11:48) Past Medical History - General Information source: Patient - Social History Smoking Status: Never Smoker Chew tobacco use (# tins/day): No Frequency of alcohol use: None Drug Abuse: None Family History: Reviewed & Not Pertinent Patient has suicidal ideation: No Patient has homicidal ideation: No Renal/ Medical History: Reports: Hx Ovarian Cysts. Denies: Hx Peritoneal Dialysis Past Surgical History: Reports: Hx Appendectomy, Hx Section - Immunizations Immunizations up to date: Yes Hx Diphtheria, Pertussis, Tetanus Vaccination: Yes Physical Exam - Vital signs Vitals: Temp Pulse Resp BP Pulse Ox 97.7 F 69 16 133/85 H 100 09/06/19 11:14 09/06/19 11:14 09/06/19 11:14 09/06/19 11:14 09/06/19 11:14 Course - Vital Signs Vital signs: Temp Pulse Resp BP Pulse Ox 97.7 F 69 16 133/85 H 100 09/06/19 11:14 09/06/19 11:14 09/06/19 11:14 09/06/19 11:14 09/06/19 11:14 - Laboratory Result Diagrams: 09/06/19 12:10 09/06/19 12:10
[2019-09-06 12:34] LABS: ABSOLUTE EOSINOPHILS # (AUTO) 0.1 10^3/uL (0.0-0.6); ABSOLUTE LYMPHOCYTES (AUTO) 2.3 10^3/uL (0.5-4.7); ABSOLUTE MONOCYTES (AUTO) 0.4 10^3/uL (0.1-1.4); ABSOLUTE NEUT (AUTO) 4.1 10^3/uL (1.7-8.2); BASOPHILS % (AUTO) 0.4 % (0-2); EOSINOPHILS % (AUTO) 1.4 % (0-6); HEMATOCRIT 41.6 % (36.0-47.0); HEMOGLOBIN 13.7 g/dL (12.0-15.5); MEAN CORPUSCULAR HEMOGLOBIN 25.5 pg (27.0-33.4); MEAN CORPUSCULAR VOLUME 77 fl (80-97); MONOCYTES % (AUTO) 5.7 % (3-13); PLATELET COUNT 344 10^3/uL (150-450); RED BLOOD COUNT 5.37 10^6/uL (3.72-5.28); RED CELL DISTRIBUTION WIDTH 13.9 % (11.5-14.0); SEGMENTED NEUTROPHILS % (AUTO) 59.5 % (42-78); TOTAL CELLS COUNTED % (AUTO) 100 %; WHITE BLOOD COUNT 6.9 10^3/uL (4.0-10.5)
[2019-09-06 12:36] LABS: APPEARANCE,URINE SLIGHTLY-CLOUDY; BILIRUBIN,URINE NEGATIVE (NEGATIVE); COLOR,URINE YELLOW; GLUCOSE, URINE NEGATIVE (NEGATIVE); KETONES,URINE NEGATIVE (NEGATIVE); PROTEIN,URINE NEGATIVE (NEGATIVE); URINE SPECIFIC GRAVITY 1.021; UROBILINOGEN,URINE NEGATIVE mg/dL (<2.0)
[2019-09-06 12:51] LABS: ALBUMIN 4.8 g/dL (3.5-5.0); ALKALINE PHOSPHATASE 42 U/L (38-126); ANION GAP 10 (5-19); ASPARTATE AMINO TRANSFERASE 23 U/L (14-36); BILIRUBIN,TOTAL 0.5 mg/dL (0.2-1.3); BLOOD UREA NITROGEN 13 mg/dL (7-20); CALCIUM 9.9 mg/dL (8.4-10.2); CARBON DIOXIDE 25 mmol/L (22-30); CHLORIDE 104 mmol/L (98-107); GLUCOSE 103 mg/dL (75-110); POTASSIUM 4.3 mmol/L (3.6-5.0); TOTAL PROTEIN 8.2 g/dL (6.3-8.2)
[2019-09-06] MEDS ORDERED: MORPHINE SULFATE 10 MG/ML INJ ONE (12:59)
[2019-09-06] MEDS ORDERED: FENTANYL CITRATE INJ/PF 100 MCG/2 ML AMPUL IV ONE (13:31)
[2019-09-06] MEDS ORDERED: NORMAL SALINE 1000 ML 1,000 ML IV ONE (13:31)
--- NOTE | 2019-09-06 13:35 | RADIOLOGY REPORT (SQ) ---
EXAM DESCRIPTION: U/S NON OB PEL TV W/DOPPLER COMPLETED DATE/TIME: 09/06/2019 1:15 pm REASON FOR STUDY: Bilateral pelvic pain, fever, nausea and vomiting COMPARISON: None. TECHNIQUE: Dynamic and static grayscale images acquired of the pelvis via transvaginal approach and recorded on PACS. Additional selected color Doppler and spectral images recorded. LIMITATIONS: None. FINDINGS: UTERUS: Contour normal. No mass. ENDOMETRIAL STRIPE: No focal or generalized thickening. No masses. CERVIX: No nabothian cysts. RIGHT OVARY AND DOPPLER: Normal size. 1.8 cm diameter cystic lesion with internal echoes. No worris ome masses. Normal arterial vascular flow without evidence for torsion. LEFT OVARY AND DOPPLER: Normal size. No worrisome masses. Normal arterial vascular flow without evide nce for torsion. FREE FLUID: Small amount. OTHER: No other significant finding. IMPRESSION: Hemorrhagic cyst right ovary. Small amount of free fluid. TECHNICAL DOCUMENTATION: JOB ID: [id number] [employer]- All Rights Reserved Rev Reading location - IP/workstation name: [email or web address]
--- NOTE | 2019-09-06 13:36 | ER Document Report ---
ED GI/ - General Chief Complaint: Pelvic Pain Stated Complaint: FEVER/VOMITING Time Seen by Provider: 09/06/19 11:43 Primary Care Provider: BARBARA HESS MD [ACTIVE STAFF] - Follow up in 3-5 days Mode of Arrival: Ambulatory TRAVEL OUTSIDE OF THE [place] IN LAST 30 DAYS: No - HPI Notes: 33 year old female to the ED with C/O pelvic pain that radiates into the back for the past two days with associated vomiting. Patient states that this feels much like a prior episode of pelvic pain that she had this past summer when she was diagnosed with PID. She was admitted at that time for abdominal pain that had a mixed picture. She had an exploratory lap and had her appendix removed and clinically it appeared she had PID. She was treated for PID and got better. She was supposed to follow up with Dr. Hess in the office and she did, but it has been some time since she has seen him. Denies fevers, chills, headache, chest pain, SOB, diarrhea. She is and has low suspicion for STD. - Related Data Allergies/Adverse Reactions: No Known Allergies Allergy (Verified 09/06/19 11:48) Past Medical History - General Information source: Patient - Social History Smoking Status: Never Smoker Chew tobacco use (# tins/day): No Frequency of alcohol use: None Drug Abuse: None Family History: Reviewed & Not Pertinent Patient has suicidal ideation: No Patient has homicidal ideation: No Renal/ Medical History: Reports: Hx Ovarian Cysts. Denies: Hx Peritoneal Dialysis Past Surgical History: Reports: Hx Appendectomy, Hx Section, Hx Gynecologic Surgery - Immunizations Immunizations up to date: Yes Hx Diphtheria, Pertussis, Tetanus Vaccination: Yes Review of Systems - Review of Systems Constitutional: denies: Chills, Fever EENT: No symptoms reported Cardiovascular: denies: Chest pain, Palpitations, Orthopnea, Dyspnea, Syncope, Dizziness, Lightheaded Respiratory: denies: Cough, Short of breath Gastrointestinal: Abdominal pain, Nausea. denies: Diarrhea, Vomiting Genitourinary: No symptoms reported. denies: Flank pain, Hematuria, Incontinence Female Genitourinary: See HPI. denies: Vaginal discharge, Vaginal bleeding, Painful intercourse Musculoskeletal: No symptoms reported Skin: No symptoms reported Hematologic/Lymphatic: No symptoms reported Neurological/Psychological: No symptoms reported -: Yes All other systems reviewed and negative Physical Exam - Vital signs Vitals: Temp Pulse Resp BP Pulse Ox 97.7 F 69 16 133/85 H 100 09/06/19 11:14 09/06/19 11:14 09/06/19 11:14 09/06/19 11:14 09/06/19 11:14 Interpretation: Normal - General General appearance: Appears well, Alert Notes: evidence of PCOS disease -- patient has hirsutism and masculinization of her features. - HEENT Head: Normocephalic, Atraumatic Eyes: Normal Pupils: PERRL - Respiratory Respiratory status: No respiratory distress Chest status: Nontender Breath sounds: Normal Chest palpation: Normal - Cardiovascular Rhythm: Regular Heart sounds: Normal auscultation Murmur: No - Abdominal Inspection: Obese Distension: No distension Bowel sounds: Normal Tenderness: Tender - + TTP over the pelvic abdomen with mild guarding. No rebound. Organomegaly: No organomegaly - Genitourinary External exam: Normal Speculum exam: Cervix closed. No: Vaginal discharge Vaginal bleeding: None Bimanuel exam: Cervical motion tender, Adnexal tenderness. No: Bladder/Urethral tender, Adnexal mass, Uterus enlarged Notes: + cervical motion tenderness and bilateral adnexal tenderness. No masses appreciated - Back Back: Normal, Nontender - Extremities General upper extremity: Normal inspection, Nontender, Normal color, Normal ROM, Normal temperature General lower extremity: Normal inspection, Nontender, Normal color, Normal ROM, Normal temperature, Normal weight bearing. No: Janie's sign - Neurological Neuro grossly intact: Yes Cognition: Normal Orientation: AAOx4 [place] Coma Scale Eye Opening: Spontaneous Abby Coma Scale Verbal: Oriented [place] Coma Scale Motor: Obeys Commands Abby Coma Scale Total: 15 Speech: Normal Motor strength normal: LUE, RUE, LLE, RLE Sensory: Normal - Psychological Associated symptoms: Normal affect, Normal mood - Skin Skin Temperature: Warm Skin Moisture: Dry Skin Color: Normal Course - Re-evaluation Re-evalutation: Discussed patient with Dr. Hess. He is familiar with this patient. Agrees to empirically treat with Doxy for a chronic PID picture. Of note, when she was first admitted for PID, she had a significant leukocytosis and was febrile. She has reassuring vitals and vitals today. After pain control, she is feeling better. Will have her follow with Dr. Hess. She agrees with the plan. - Vital Signs Vital signs: Temp Pulse Resp BP Pulse Ox 98.0 F 70 16 124/72 99 09/06/19 15:00 09/06/19 15:00 09/06/19 15:00 09/06/19 15:00 09/06/19 15:00 - Laboratory Result Diagrams: 09/06/19 12:10 09/06/19 12:10 Laboratory results interpreted by me: 09/06/19 09/06/19 12:10 12:10 RBC 5.37 H MCV 77 L MCH 25.5 L Urine Blood MODERATE H Leukocyte Esterase Rfl TRACE H - Diagnostic Test Radiology reviewed: Image reviewed, Reports reviewed Discharge - Discharge Clinical Impression: Pelvic pain, Hemorrhagic cyst of right ovary, Pelvic inflammatory disease (PID) Condition: Stable Disposition: HOME, SELF-CARE Instructions: Doxycycline ([facility]), Ovarian Cyst ([facility]), Pelvic Inflammatory Disease ([facility]), Pelvic Pain ([facility]) Additional Instructions: FOLLOW UP WITH DR. HSES WITHOUT FAIL IN THE NEXT 2-5 DAYS. RETURN IF WORSENING PAIN. COMPLETE ANTIBIOTICS. NO SEX FOR TWO WEEKS. PUSH FLUIDS. Prescriptions: Doxycycline Hyclate 100 mg PO BID #28 capsule Oxycodone HCl/Acetaminophen [Percocet 5-325 mg Tablet] 1 tab PO Q6H PRN #6 tablet PRN Reason: Ondansetron [Zofran Odt 4 mg Tablet] 1 - 2 tab PO Q4H PRN #15 tab.rapdis PRN Reason: For Nausea/Vomiting Referrals: BARBARA HESS MD [ACTIVE STAFF] - Follow up in 3-5 days
[2019-09-06] MEDS ORDERED: DIPHENHYDRAMINE HCL 50 MG/ML VIAL IV ONE (15:10)
[2019-09-06 15:41] VITALS: BP 124/72
[2019-09-06 15:57] LABS: T.VAGINALIS (WET MOUNT) NO TRICHOMONAS SEEN; WBCS (WET MOUNT) FEW WBCS SEEN; YEAST (WET MOUNT) YEAST SEEN
[2019-09-06 17:23] LABS: CHLAM PCR NOT DETECTED (NOT DETECT)
== END 2019-09-06 15:41 | disposition home or self-care (01) ==
LOC: ER 11:00
DX: N73.9 Female pelvic inflammatory disease, unspecified (principal); E28.2 Polycystic ovarian syndrome; L68.0 Hirsutism; R10.2 Pelvic and perineal pain; Z90.49 Acquired absence of other specified parts of digestive tract
CPT/HCPCS: 99284; 96372; 96361; 96374; 96375; 36415; 87086; 87210; 84703; 85025; 80053; 81001; 87491; 87591; 76830; 93976; J1200; S0119; J3010; J1885; J7030

== ENCOUNTER 2019-12-24 09:16 | Emergency (ER) | payer BC, OTHER ==
[2019-12-24] MEDS ORDERED: NORMAL SALINE 1000 ML 1,000 ML IV ONE (09:53)
[2019-12-24] MEDS ORDERED: MECLIZINE HCL 25 MG TABLET PO ONE (09:53)
--- NOTE | 2019-12-24 09:56 | ER Document Report ---
ED Medical Screen (RME) - General Chief Complaint: Dizziness Stated Complaint: DIZZINESS Time Seen by Provider: 12/24/19 09:51 TRAVEL OUTSIDE OF THE [place] IN LAST 30 DAYS: No - HPI Notes: 12/24/19 09:55 Patient is a 34-year-old female in early who presents complaining of having dizziness, nausea/vomiting for the past couple weeks. Patient is that she has been seen by the women[facility] clinic already. Patient is not sure how far along she is, but last menstrual cycle was November 09. She has not had any vaginal bleeding or pelvic pain. Patient believes that she is dehydrated. She did have gestational diabetes with a previous . No fever, chest pain, shortness of breath. I have treated and performed a rapid initial assessment of this patient. A comprehensive ED assessment and evaluation of the patient, analysis of test results and completion of medical decision making process will be conducted by additional ED providers. PHYSICAL EXAMINATION: GENERAL: Well-appearing, well-nourished and in no acute distress. A&Ox4. Answers questions appropriately. Neuro: Cranial nerves grossly intact, GCS 15, NIH 0. Heart: RRR - Related Data Allergies/Adverse Reactions: No Known Allergies Allergy (Verified 12/24/19 09:44) Home Medications: prenatals Past Medical History - Social History Frequency of alcohol use: None Drug Abuse: None Renal/ Medical History: Reports: Hx Ovarian Cysts. Denies: Hx Peritoneal Dialysis Past Surgical History: Reports: Hx Appendectomy, Hx Section, Hx Gynecologic Surgery - Immunizations Immunizations up to date: Yes Hx Diphtheria, Pertussis, Tetanus Vaccination: Yes Physical Exam - Vital signs Vitals: Temp Pulse Resp BP Pulse Ox 97.6 F 85 18 114/81 100 12/24/19 09:35 12/24/19 09:35 12/24/19 09:35 12/24/19 09:35 12/24/19 09:35 Course - Vital Signs Vital signs: Temp Pulse Resp BP Pulse Ox 97.6 F 85 18 114/81 100 12/24/19 09:35 12/24/19 09:35 12/24/19 09:35 12/24/19 09:35 12/24/19 09:35
[2019-12-24 10:38] LABS: ABSOLUTE BASOPHILS # (AUTO) 0.1 10^3/uL (0.0-0.2); ABSOLUTE EOSINOPHILS # (AUTO) 0.1 10^3/uL (0.0-0.6); ABSOLUTE LYMPHOCYTES (AUTO) 3.3 10^3/uL (0.5-4.7); ABSOLUTE MONOCYTES (AUTO) 0.7 10^3/uL (0.1-1.4); ABSOLUTE NEUT (AUTO) 7.5 10^3/uL (1.7-8.2); BASOPHILS % (AUTO) 0.5 % (0-2); EOSINOPHILS % (AUTO) 1.3 % (0-6); HEMATOCRIT 39.7 % (36.0-47.0); LYMPHOCYTES % (AUTO) 28.3 % (13-45); MEAN CORPUSCULAR HEMOGLOBIN 24.9 pg (27.0-33.4); MEAN CORPUSCULAR HGB CONC 32.7 g/dL (32.0-36.0); MEAN CORPUSCULAR VOLUME 76 fl (80-97); MONOCYTES % (AUTO) 6.1 % (3-13); PLATELET COUNT 353 10^3/uL (150-450); RED BLOOD COUNT 5.22 10^6/uL (3.72-5.28); RED CELL DISTRIBUTION WIDTH 13.8 % (11.5-14.0); SEGMENTED NEUTROPHILS % (AUTO) 63.8 % (42-78); TOTAL CELLS COUNTED % (AUTO) 100 %; WHITE BLOOD COUNT 11.7 10^3/uL (4.0-10.5)
[2019-12-24 10:58] LABS: ALBUMIN 4.3 g/dL (3.5-5.0); ALKALINE PHOSPHATASE 34 U/L (38-126); ANION GAP 11 (5-19); ASPARTATE AMINO TRANSFERASE 17 U/L (14-36); BILIRUBIN,TOTAL 0.2 mg/dL (0.2-1.3); BLOOD UREA NITROGEN 15 mg/dL (7-20); CALCIUM 9.8 mg/dL (8.4-10.2); CARBON DIOXIDE 24 mmol/L (22-30); CHLORIDE 104 mmol/L (98-107); GLUCOSE 127 mg/dL (75-110); POTASSIUM 4.1 mmol/L (3.6-5.0); TOTAL PROTEIN 7.7 g/dL (6.3-8.2)
[2019-12-24 11:49] VITALS: BP 123/85
[2019-12-24 12:07] LABS: APPEARANCE,URINE CLEAR; BILIRUBIN,URINE NEGATIVE (NEGATIVE); COLOR,URINE YELLOW; GLUCOSE, URINE NEGATIVE (NEGATIVE); KETONES,URINE NEGATIVE (NEGATIVE); PROTEIN,URINE NEGATIVE (NEGATIVE); UROBILINOGEN,URINE NEGATIVE mg/dL (<2.0)
--- NOTE | 2019-12-24 13:16 | ER Document Report ---
ED General - General Chief Complaint: Dizziness Stated Complaint: DIZZINESS Time Seen by Provider: 12/24/19 09:51 Mode of Arrival: Ambulatory Information source: Patient Notes: 34-year-old female presents emergency department with complaints of low back pain dizziness and nausea. She reports she has had the symptoms for the last few weeks. She reports she is . She is not sure how far along. Reports last menstrual period was November 09, 2019. She did go see her primary care provider last and they told her she was probably dehydrated. She does complain of nausea and vomiting. Denies fever diarrhea. TRAVEL OUTSIDE OF THE [place] IN LAST 30 DAYS: No - HPI Onset: Other - Few weeks Onset/Duration: Persistent Associated symptoms: Nausea, Vomiting Exacerbated by: Denies Relieved by: Denies Similar symptoms previously: Yes Recently seen / treated by doctor: Yes - Related Data Allergies/Adverse Reactions: No Known Allergies Allergy (Verified 12/24/19 09:44) Home Medications: prenatals Past Medical History - General Information source: Patient Last Menstrual Period: 11/09/2019 - Social History Smoking Status: Unknown if Ever Smoked Frequency of alcohol use: None Drug Abuse: None Lives with: Family Family History: Reviewed & Not Pertinent Patient has suicidal ideation: No Patient has homicidal ideation: No Endocrine Medical History: Reports: Hx Diabetes Mellitus Type 2 - gestational Renal/ Medical History: Reports: Hx Ovarian Cysts. Denies: Hx Peritoneal Dialysis Past Surgical History: Reports: Hx Appendectomy, Hx Section, Hx Gynecologic Surgery - Immunizations Immunizations up to date: Yes Hx Diphtheria, Pertussis, Tetanus Vaccination: Yes Review of Systems - Review of Systems Notes: Review HPI for review of systems., All other systems negative Physical Exam - Vital signs Vitals: Temp Pulse Resp BP Pulse Ox 97.6 F 85 18 114/81 100 12/24/19 09:35 12/24/19 09:35 12/24/19 09:35 12/24/19 09:35 12/24/19 09:35 - General General appearance: Appears well, Alert In distress: None - HEENT Head: Normocephalic Eyes: Normal Conjunctiva: Normal Neck: Normal, Supple. No: Lymphadenopathy - Respiratory Respiratory status: No respiratory distress Chest status: Nontender Breath sounds: Normal Chest palpation: Normal - Cardiovascular Rhythm: Regular Heart sounds: Normal auscultation Murmur: No - Abdominal Inspection: Normal Distension: No distension Bowel sounds: Normal Tenderness: Nontender Organomegaly: No organomegaly - Back Back: Normal - Extremities General upper extremity: Normal ROM General lower extremity: Normal ROM - Neurological Neuro grossly intact: Yes Cognition: Normal Orientation: AAOx4 [place] Coma Scale Eye Opening: Spontaneous Abby Coma Scale Verbal: Oriented Abby Coma Scale Motor: Obeys Commands [place] Coma Scale Total: 15 Speech: Normal - Psychological Associated symptoms: Normal affect, Normal mood - Skin Skin Temperature: Warm Skin Moisture: Dry Skin Color: Normal Course - Re-evaluation Re-evalutation: 12/24/19 14:07 Patient presents emergency department with complaints of nausea vomiting dizziness for the past few weeks. Reports she is but she is unsure how she is. She did go see her primary care provider last and was told that she was probably dehydrated. She denies abdominal pain. Denies vaginal bleeding. Labs unremarkable. Ultrasound shows 6 weeks 2-day intrauterine . 12/24/19 15:11 Patient reports she is feeling much better. Drinking p.o. fluids without vomiting. Instructed on Reglan and all results.. Instructed on the importance of pushing fluids follow-up with her [employer] MANAGER as scheduled. She verbalized understanding to all instructions. Obstetrics Ultrasound 12/24/19 13:14 IMPRESSION: Living intrauterine . EGA 6 weeks 2 days. Findings as described. Trimester of : First trimester - 0 to 13 weeks. Laboratory 12/24/19 12/24/19 12/24/19 10:26 10:26 11:01 WBC 11.7 H RBC 5.22 Hgb 13.0 Hct 39.7 MCV 76 L MCH 24.9 L MCHC 32.7 RDW 13.8 Plt Count 353 Lymph % (Auto) 28.3 [place] % (Auto) 6.1 Eos % (Auto) 1.3 Baso % (Auto) 0.5 Absolute Neuts (auto) 7.5 Absolute Lymphs (auto) 3.3 Absolute Monos (auto) 0.7 Absolute Eos (auto) 0.1 Absolute Basos (auto) 0.1 Seg Neutrophils % 63.8 Sodium 138.6 Potassium 4.1 Chloride 104 Carbon Dioxide 24 Anion Gap 11 BUN 15 Creatinine 0.52 Est GFR ( Amer) > 60 Est GFR (MDRD) Non-Af > 60 Glucose 127 H POC Glucose 101 Calcium 9.8 Magnesium 1.8 Total Bilirubin 0.2 Direct Bilirubin 0.0 Neonat Total Bilirubin Not Reportable Neonat Direct Bilirubin Not Reportable Neonat Indirect Bili Not Reportable AST 17 ALT 20 Alkaline Phosphatase 34 L Total Protein 7.7 Albumin 4.3 Beta HCG, Quant 84389.00 H Total Beta HCG POSITIVE Urine Color Urine Appearance Urine pH Ur Specific [place] Urine Protein Urine Glucose (UA) Urine Ketones Urine Blood Urine Nitrite (Reflex) Urine Bilirubin Urine Urobilinogen Leukocyte Esterase Rfl Urine RBC (Auto) Urine Bacteria (Auto) Urine WBC (Reflex) Squamous Epi Cells Auto Urine Mucus (Auto) Urine Ascorbic Acid 12/24/19 11:40 WBC RBC Hgb Hct MCV MCH MCHC RDW Plt Count Lymph % (Auto) [place] % (Auto) Eos % (Auto) Baso % (Auto) Absolute Neuts (auto) Absolute Lymphs (auto) Absolute Monos (auto) Absolute Eos (auto) Absolute Basos (auto) Seg Neutrophils % Sodium Potassium Chloride Carbon Dioxide Anion Gap BUN Creatinine Est GFR ( Amer) Est GFR (MDRD) Non-Af Glucose POC Glucose Calcium Magnesium Total Bilirubin Direct Bilirubin Neonat Total Bilirubin Neonat Direct Bilirubin Neonat Indirect Bili AST ALT Alkaline Phosphatase Total Protein Albumin Beta HCG, Quant Total Beta HCG Urine Color YELLOW Urine Appearance CLEAR Urine pH 5.0 Ur Specific [place] 1.020 Urine Protein NEGATIVE Urine Glucose (UA) NEGATIVE Urine Ketones NEGATIVE Urine Blood SMALL H Urine Nitrite (Reflex) NEGATIVE Urine Bilirubin NEGATIVE Urine Urobilinogen NEGATIVE Leukocyte Esterase Rfl NEGATIVE Urine RBC (Auto) 1 Urine Bacteria (Auto) TRACE Urine WBC (Reflex) 1 Squamous Epi Cells Auto 3 Urine Mucus (Auto) RARE Urine Ascorbic Acid NEGATIVE - Vital Signs Vital signs: Temp Pulse Resp BP Pulse Ox 97.6 F 69 18 123/85 100 12/24/19 09:35 12/24/19 11:30 12/24/19 09:35 12/24/19 11:30 12/24/19 09:35 - Laboratory Result Diagrams: 12/24/19 10:26 12/24/19 10:26 Laboratory results interpreted by me: 12/24/19 12/24/19 12/24/19 10:26 10:26 11:40 WBC 11.7 H MCV 76 L MCH 24.9 L Glucose 127 H Alkaline Phosphatase 34 L Beta HCG, Quant 24944.00 H Urine Blood SMALL H - Diagnostic Test Radiology reviewed: Image reviewed, Reports reviewed - EKG Interpretation by Me EKG shows normal: Sinus rhythm Rate: Normal Rhythm: NSR Additional EKG results interpreted by me: 12/24/19 14:[address] elevation no T wave inversion Discharge - Discharge Clinical Impression: Dizziness Nausea & vomiting Qualifiers: Vomiting type: unspecified Vomiting Intractability: non-intractable Qualified Code(s): R11.2 - Nausea with vomiting, unspecified Qualifiers: Weeks of gestation: less than 8 weeks Qualified Code(s): Z3A.01 - Less than 8 weeks gestation of Condition: Stable Disposition: HOME, SELF-CARE Instructions: Antinausea Medication ([facility]), Dizziness ([facility]), Intravenous (IV) Fluids ([facility]), ([facility]), Reglan ([facility]), Vomiting ([facility]) Additional Instructions: *You have been evaluated for dizziness, nausea vomiting, *Your ultrasound showed a 6-week 2-day single intrauterine *Take medication as prescribed for the nausea *Ensure adequate fluid intake to prevent dehydration *Follow up with a primary care provider or your MERCHANDISING TEAM LEAD within 1 week *Return to ED for worsening condition, changes, needs, continued nausea and vomiting, abdominal pain, vaginal bleeding Prescriptions: Metoclopramide HCl [Reglan] 10 mg PO Q6H #15 tablet
--- NOTE | 2019-12-24 14:25 | RADIOLOGY REPORT (SQ) ---
EXAM DESCRIPTION: U/S OB TRANSVAGINAL W/O DOP COMPLETED DATE/TIME: 12/24/2019 1:55 pm REASON FOR STUDY: preg, n/v COMPARISON: None. TECHNIQUE: Transvaginal static and realtime grayscale images acquired of the pelvis. Additional ha cted spectral and color Doppler images recorded. All images stored on PACs. bHC,100 CLINICAL DATES: LMP 11/09/2019. 6 weeks 3 days. LIMITATIONS: None. FINDINGS: FETUS: Single Living intrauterine . ULTRASOUND EGA: 6 weeks 2 days. ULTRASOUND [place]: 08/16/2020 EFW: Not applicable less than 20 weeks. CRL: 0.5 cm FHR: 126 beats per minute. SURVEY: Too early to assess. AMNIOTIC FLUID: Adequate amount. PLACENTA: Not yet developed due to early gestation. SUBCHORIONIC BLEED: Yes. SIZE OF BLEED: 3.4 x 1.3 x 1.2 cm. UTERUS: No masses. No anomalies. CERVICAL LENGTH: 3 cm. Closed. RIGHT ADNEXA: Normal ovary with normal vascular flow. 2.1 cm cyst. No adnexal free fluid. No adnexal masses. LEFT ADNEXA: Normal ovary with normal vascular flow. No adnexal free fluid. No adnexal masses. FREE FLUID: None. OTHER: No other significant finding. IMPRESSION: Living intrauterine . EGA 6 weeks 2 days. Findings as described. Trimester of : First trimester - 0 to 13 weeks. TECHNICAL DOCUMENTATION: JOB ID: [id number] 2010 [employer]- All Rights Reserved rev-03/17 Reading location - IP/workstation name: [email or web address]
--- NOTE | 2019-12-27 19:41 | EKG REPORT ---
SEVERITY:- NORMAL ECG - SINUS RHYTHM : Confirmed by: Beverley Ocampo MD 27-Dec-2019 19:39:31
== END 2019-12-24 15:28 | disposition home or self-care (01) ==
LOC: ER 09:16
DX: O21.9 Vomiting of pregnancy, unspecified (principal); O24.919 Unspecified diabetes mellitus in pregnancy, unspecified trimester; O26.891 Other specified pregnancy related conditions, first trimester; R42 Dizziness and giddiness; M54.5 Low back pain; Z3A.01 Less than 8 weeks gestation of pregnancy
CPT/HCPCS: 99284; 96360; 36415; 82962; 84702; 83735; 85025; 80053; 81001; 76817; J7030; 93005; 93010

== ENCOUNTER 2019-12-27 20:27 | Emergency (ER) | payer BC ==
--- NOTE | 2019-12-27 20:49 | ER Document Report ---
ED Medical Screen (RME) - General Chief Complaint: Vaginal Bleeding Stated Complaint: VAGINAL BLEEDING 7 WEEKS Time Seen by Provider: 12/27/19 20:48 Primary Care Provider: JAZMIN VELASQUEZ MD [Primary Care Provider] - Follow up as needed TRAVEL OUTSIDE OF THE [place] IN LAST 30 DAYS: No - HPI Notes: 12/27/19 20:49 Patient is a approximately 6 weeks 5 days presents complaining of having bleeding that began this afternoon/evening. She was seen by [facility] this morning and had an unremarkable exam otherwise. Patient states that she was not bleeding at that time. She does have some intermittent cramping. No fever, chest pain, shortness of breath, vomiting/diarrhea. Pt is blood type A+ by chart review performed earlier today. I have treated and performed a rapid initial assessment of this patient. A comprehensive ED assessment and evaluation of the patient, analysis of test results and completion of medical decision making process will be conducted by additional ED providers. PHYSICAL EXAMINATION: GENERAL: Well-appearing, well-nourished and in no acute distress. A&Ox4. Answers questions appropriately. - Related Data Allergies/Adverse Reactions: No Known Allergies Allergy (Verified 12/24/19 09:44) Past Medical History Endocrine Medical History: Reports: Hx Diabetes Mellitus Type 2 - gestational Renal/ Medical History: Reports: Hx Ovarian Cysts. Denies: Hx Peritoneal Dialysis Past Surgical History: Reports: Hx Appendectomy, Hx Section, Hx Gynecologic Surgery - Immunizations Immunizations up to date: Yes Hx Diphtheria, Pertussis, Tetanus Vaccination: Yes Physical Exam - Vital signs Vitals: Temp Pulse Resp BP Pulse Ox 98.3 F 89 16 135/86 H 98 12/27/19 20:31 12/27/19 20:31 12/27/19 20:31 12/27/19 20:31 12/27/19 20:31 Course - Vital Signs Vital signs: Temp Pulse Resp BP Pulse Ox 98.3 F 89 16 135/86 H 98 12/27/19 20:31 12/27/19 20:31 12/27/19 20:31 12/27/19 20:31 12/27/19 20:31 Doctor's Discharge - Discharge Referrals: JAZMIN VELASQUEZ MD [Primary Care Provider] - Follow up as needed
[2019-12-27 21:18] LABS: ABSOLUTE BASOPHILS # (AUTO) 0.1 10^3/uL (0.0-0.2); ABSOLUTE EOSINOPHILS # (AUTO) 0.1 10^3/uL (0.0-0.6); ABSOLUTE MONOCYTES (AUTO) 0.9 10^3/uL (0.1-1.4); ABSOLUTE NEUT (AUTO) 10.4 10^3/uL (1.7-8.2); BASOPHILS % (AUTO) 0.3 % (0-2); EOSINOPHILS % (AUTO) 0.9 % (0-6); HEMOGLOBIN 12.4 g/dL (12.0-15.5); LYMPHOCYTES % (AUTO) 20.9 % (13-45); MEAN CORPUSCULAR HEMOGLOBIN 24.7 pg (27.0-33.4); MEAN CORPUSCULAR HGB CONC 32.6 g/dL (32.0-36.0); MEAN CORPUSCULAR VOLUME 76 fl (80-97); MONOCYTES % (AUTO) 6.1 % (3-13); PLATELET COUNT 358 10^3/uL (150-450); RED BLOOD COUNT 5.01 10^6/uL (3.72-5.28); RED CELL DISTRIBUTION WIDTH 13.7 % (11.5-14.0); SEGMENTED NEUTROPHILS % (AUTO) 71.8 % (42-78); TOTAL CELLS COUNTED % (AUTO) 100 %; WHITE BLOOD COUNT 14.6 10^3/uL (4.0-10.5)
[2019-12-27 22:20] LABS: APPEARANCE,URINE CLEAR; BILIRUBIN,URINE NEGATIVE (NEGATIVE); COLOR,URINE STRAW; GLUCOSE, URINE NEGATIVE (NEGATIVE); KETONES,URINE NEGATIVE (NEGATIVE); PROTEIN,URINE NEGATIVE (NEGATIVE); URINE SPECIFIC GRAVITY 1.013; UROBILINOGEN,URINE NEGATIVE mg/dL (<2.0)
--- NOTE | 2019-12-27 22:20 | RADIOLOGY REPORT (SQ) ---
US PELVIS EXAM DATE: 12/27/2019 8:50 PM [facility] HISTORY: Early . Pelvic pain. COMPARISON: 12/24/2019 TECHNIQUE: Grayscale, color Doppler, and spectral Doppler ultrasound images of the pelvis were obtained. FINDINGS: There is an intrauterine gestational sac with a yolk sac and pole visualized. The crown-rump length measures 0.9 cm corresponding to 7 weeks 0 days of . heart rate is 152 bpm. There is a 2 cm adjacent subchorionic hematoma. Cervix is closed and measures 3.7 cm in length. The left ovary is not visualized. The right ovary measures 4.6 cm and contains a simple 2 cm cyst. There is normal color Doppler blood flow in the right ovary. No pelvic free fluid. IMPRESSION: 1. Single live IUP with estimated gestational age 7 weeks 0 days. 2. Small adjacent subchorionic hemorrhage; attention on follow-up imaging is suggested. 3. Simple right ovarian cyst for which no follow-up imaging is needed.
--- NOTE | 2019-12-27 22:55 | ER Document Report ---
HPI - HPI Patient complains to provider of: Vaginal bleeding Time Seen by Provider: 12/27/19 20:48 Onset: This afternoon Onset/Duration: Gradual Quality of pain: Cramping Pain Level: 1 Context: Patient reports that she is currently 6 weeks 5 days G3, P1. Patient reports vaginal bleeding that started today with mild cramping. Patient denies any urinary frequency or dysuria symptoms. Associated Symptoms: Other - Vaginal bleeding, pelvic cramping. denies: Fever, Vomiting Exacerbated by: Denies Relieved by: Denies Similar symptoms previously: Yes Recently seen / treated by doctor: Yes - ROS ROS below otherwise negative: Yes Systems Reviewed and Negative: Yes All other systems reviewed and negative - CONSTITUTIONAL Constitutional: DENIES: Fever - RESPIRATORY Respiratory: DENIES: Coughing - GASTROINTESTINAL Gastrointestinal: REPORTS: Abdominal Pain. DENIES: Nausea, Patient vomiting - URINARY Urinary: DENIES: Dysuria, Urgency, Frequency - REPRODUCTIVE Reproductive: REPORTS: :, Abnormal bleeding / discharge - MUSCULOSKELETAL Musculoskeletal: REPORTS: Back Pain. DENIES: Extremity pain - DERM Skin Color: Normal Skin Problems: None Past Medical History - General Information source: Patient - Social History Smoking Status: Never Smoker Chew tobacco use (# tins/day): No Frequency of alcohol use: None Drug Abuse: None Lives with: Family Family History: Reviewed & Not Pertinent Patient has suicidal ideation: No Patient has homicidal ideation: No - Medical History Medical History: Negative Renal/ Medical History: Reports: Hx Ovarian Cysts. Denies: Hx Peritoneal Dialysis Past Surgical History: Reports: Hx Appendectomy, Hx Section, Hx Gynecologic Surgery - Immunizations Immunizations up to date: Yes Hx Diphtheria, Pertussis, Tetanus Vaccination: Yes Vertical Provider Document - CONSTITUTIONAL Agree With Documented VS: Yes Exam Limitations: No Limitations General Appearance: WD/WN, No Apparent Distress - INFECTION CONTROL TRAVEL OUTSIDE OF THE [place] IN LAST 30 DAYS: No - HEENT HEENT: Atraumatic, Normocephalic - NECK Neck: Normal Inspection, Supple. negative: Lymphadenopathy-Left, Lymphadenopathy-Right - RESPIRATORY Respiratory: Breath Sounds Normal, No Respiratory Distress - CARDIOVASCULAR Cardiovascular: Regular Rate, Regular Rhythm. negative: Tachycardia - GI/ABDOMEN Gastrointestinal: Abdomen Soft, Abdomen Non-Tender, Normal Bowel Sounds - BACK Back: Abnormal Inspection - Upper lumbar paraspinal tenderness. negative: CVA Tenderness-Right, CVA Tenderness-Left - MUSCULOSKELETAL/EXTREMETIES Musculoskeletal/Extremeties: KEYNO PAEZ - NEURO Level of Consciousness: Awake, Alert, Appropriate Motor/Sensory: No Motor Deficit - DERM Integumentary: Warm, Dry, No Rash Course - Re-evaluation Re-evalutation: 12/27/19 22:54 Patient with stable vital signs and stable H&H. Patient with subchorionic bleed noted on ultrasound. Discussed these findings with patient. 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 Good return precautions discussed with patient. - Vital Signs Vital signs: Temp Pulse Resp BP Pulse Ox 98.3 F 89 16 135/86 H 98 12/27/19 20:31 12/27/19 20:31 12/27/19 20:31 12/27/19 20:31 12/27/19 20:31 - Laboratory Result Diagrams: 12/27/19 21:00 Laboratory results interpreted by me: 12/27/19 12/27/19 12/27/19 21:00 21:00 21:52 WBC 14.6 H MCV 76 L MCH 24.7 L Absolute Neuts (auto) 10.4 H Beta HCG, Quant 45349.00 H Urine Blood LARGE H 12/27/19 22:54 Labs- Entire Visit 12/27/19 12/27/19 12/27/19 21:00 21:00 21:52 WBC 14.6 H RBC 5.01 Hgb 12.4 Hct 38.0 MCV 76 L MCH 24.7 L MCHC 32.6 RDW 13.7 Plt Count 358 Lymph % (Auto) 20.9 [place] % (Auto) 6.1 Eos % (Auto) 0.9 Baso % (Auto) 0.3 Absolute Neuts (auto) 10.4 H Absolute Lymphs (auto) 3.0 Absolute Monos (auto) 0.9 Absolute Eos (auto) 0.1 Absolute Basos (auto) 0.1 Seg Neutrophils % 71.8 Beta HCG, Quant 09603.00 H Total Beta HCG POSITIVE Urine Color STRAW Urine Appearance CLEAR Urine pH 5.0 Ur Specific [employer] 1.013 Urine Protein NEGATIVE Urine Glucose (UA) NEGATIVE Urine Ketones NEGATIVE Urine Blood LARGE H Urine Nitrite (Reflex) NEGATIVE Urine Bilirubin NEGATIVE Urine Urobilinogen NEGATIVE Leukocyte Esterase Rfl NEGATIVE Urine RBC (Auto) 6 Urine WBC (Reflex) < 1 Squamous Epi Cells Auto 1 Urine Mucus (Auto) RARE Urine Ascorbic Acid NEGATIVE - Diagnostic Test Radiology reviewed: Reports reviewed Discharge - Discharge Clinical Impression: Qualifiers: Weeks of gestation: less than 8 weeks Qualified Code(s): Z3A.01 - Less than 8 weeks gestation of Subchorionic bleed Qualifiers: Fetus number: single or unspecified fetus Trimester: first trimester Qualified Code(s): O41.8X10 - Other specified disorders of amniotic fluid and membranes, first trimester, not applicable or unspecified Condition: Stable Disposition: HOME, SELF-CARE Instructions: Bleeding During Early ([facility]) Additional Instructions: Return immediately for any new or worsening symptoms Followup with your [employer] care provider, call tomorrow to make a followup appointment Referrals: JAZMIN VELASQUEZ MD [Primary Care Provider] - Follow up as needed
[2019-12-27 23:33] VITALS: BP 120/78
== END 2019-12-27 23:33 | disposition home or self-care (01) ==
LOC: ER 20:27
DX: O20.8 Other hemorrhage in early pregnancy (principal); O99.89 Other specified diseases and conditions complicating pregnancy, childbirth and the puerperium; M54.9 Dorsalgia, unspecified; O26.891 Other specified pregnancy related conditions, first trimester; R10.2 Pelvic and perineal pain; Z3A.01 Less than 8 weeks gestation of pregnancy
CPT/HCPCS: 36415; 76817; 81001; 84702; 85025; 99284

== ENCOUNTER → 2019-12-27 | Outpatient (CLI) | payer BC | LOC: OD 16:51 | PROVIDERS: ATTEND Student in an Organized Health Care Education/Training Program | DX: O36.80X0 Pregnancy with inconclusive fetal viability, not applicable or unspecified (principal) | CPT/HCPCS: 36415; 86900; 86901 ==

== ENCOUNTER 2019-12-31 15:10 | Observation (INO) | payer BC ==
[2019-12-31] MEDS ORDERED: NORMAL SALINE 1000 ML 1,000 ML IV ONE ×2 (16:41→18:26)
[2019-12-31] MEDS ORDERED: ONDANSETRON HCL INJ/PF 4 MG/2 ML SDV IV ONE (16:41)
--- NOTE | 2019-12-31 16:42 | ER Document Report ---
ED Medical Screen (RME) - General Chief Complaint: Flu Symptoms Stated Complaint: VOMITING/FEVER Time Seen by Provider: 12/31/19 16:33 Primary Care Provider: JAZMIN VELASQUEZ MD [Primary Care Provider] - Follow up as needed Notes: Patient is a G3, P1 8-week female who presents the emergency department with vomiting that started at 6:00 this morning. Patient states that she has left upper abdominal pain. She states that she saw specks of blood in her vomit. Denies any diarrhea. Denies rhinorrhea. Exam: Dry mucous membranes. Patient appears not feeling well. I have greeted and performed a rapid initial assessment of this patient. A comprehensive ED assessment and evaluation of the patient, analysis of test results and completion of medical decision making process will be conducted by an additional ED providers. TRAVEL OUTSIDE OF THE [place] IN LAST 30 DAYS: No - Related Data Allergies/Adverse Reactions: No Known Allergies Allergy (Verified 12/24/19 09:44) Past Medical History - Social History Frequency of alcohol use: None Drug Abuse: None Endocrine Medical History: Reports: Hx Diabetes Mellitus Type 2 - gestational Renal/ Medical History: Reports: Hx Ovarian Cysts. Denies: Hx Peritoneal Dialysis Past Surgical History: Reports: Hx Appendectomy, Hx Section, Hx Gynecologic Surgery - Immunizations Immunizations up to date: Yes Hx Diphtheria, Pertussis, Tetanus Vaccination: Yes Doctor's Discharge - Discharge Referrals: JAZMIN VELASQUEZ MD [Primary Care Provider] - Follow up as needed
[2019-12-31 17:24] LABS: ABSOLUTE LYMPHOCYTES (AUTO) 0.6 10^3/uL (0.5-4.7); ABSOLUTE MONOCYTES (AUTO) 0.6 10^3/uL (0.1-1.4); ABSOLUTE NEUT (AUTO) 11.4 10^3/uL (1.7-8.2); BASOPHILS % (AUTO) 0.1 % (0-2); EOSINOPHILS % (AUTO) 0.2 % (0-6); HEMOGLOBIN 12.6 g/dL (12.0-15.5); LYMPHOCYTES % (AUTO) 5.1 % (13-45); MEAN CORPUSCULAR HEMOGLOBIN 25.5 pg (27.0-33.4); MEAN CORPUSCULAR VOLUME 75 fl (80-97); MONOCYTES % (AUTO) 4.5 % (3-13); PLATELET COUNT 326 10^3/uL (150-450); RED BLOOD COUNT 4.93 10^6/uL (3.72-5.28); RED CELL DISTRIBUTION WIDTH 14.2 % (11.5-14.0); SEGMENTED NEUTROPHILS % (AUTO) 90.1 % (42-78); TOTAL CELLS COUNTED % (AUTO) 100 %; WHITE BLOOD COUNT 12.6 10^3/uL (4.0-10.5)
[2019-12-31 17:37] LABS: ALBUMIN 4.3 g/dL (3.5-5.0); ALKALINE PHOSPHATASE 40 U/L (38-126); ANION GAP 14 (5-19); ASPARTATE AMINO TRANSFERASE 17 U/L (14-36); BILIRUBIN,DIRECT 0.2 mg/dL (0.0-0.4); BILIRUBIN,TOTAL 0.5 mg/dL (0.2-1.3); BLOOD UREA NITROGEN 16 mg/dL (7-20); CALCIUM 9.1 mg/dL (8.4-10.2); CARBON DIOXIDE 21 mmol/L (22-30); CHLORIDE 101 mmol/L (98-107); GLUCOSE 115 mg/dL (75-110); POTASSIUM 4.1 mmol/L (3.6-5.0); TOTAL PROTEIN 7.8 g/dL (6.3-8.2)
--- NOTE | 2019-12-31 18:00 | RADIOLOGY REPORT (SQ) ---
EXAM DESCRIPTION: U/S OB TRANSVAG W/DOPPLER COMPLETED DATE/TIME: 12/31/2019 5:48 pm REASON FOR STUDY: abd pain; vomiting COMPARISON: 12/27/2019 TECHNIQUE: Transvaginal static and realtime grayscale images acquired of the pelvis. Additional ha cted spectral and color Doppler images recorded. All images stored on PACs. bHCG: Pending. CLINICAL DATES: LMP 11/09/2019. 7 weeks 3 days. LIMITATIONS: None. FINDINGS: FETUS: Single Living intrauterine . ULTRASOUND EGA: 7 weeks 5 days. ULTRASOUND [place]: 08/13/2020 EFW: Not applicable less than 20 weeks. CRL: 1.4 cm. FHR: 168 beats per minute. SURVEY: No visualized anomalies. AMNIOTIC FLUID: Adequate amount. PLACENTA: Not yet developed due to early gestation. SUBCHORIONIC BLEED: Yes SIZE OF BLEED: 2.1 x 1.6 x 1.5 cm. UTERUS: No masses. No anomalies. CERVICAL LENGTH: 3.3 cm. Closed. RIGHT ADNEXA: Normal ovary with normal vascular flow. 3.2 x 2.2 x 1.9 cm. No adnexal free fluid. No adnexal masses. LEFT ADNEXA: Normal ovary with normal vascular flow. 4.5 x 2.2 x 2.1 cm. There is a 2.2 cm corpus l uteum. No adnexal free fluid. No adnexal masses. FREE FLUID: None. OTHER: No other significant finding. IMPRESSION: LIVING INTRAUTERINE . EGA 7 weeks 5 days. Trimester of : First trimester - 0 to 13 weeks. TECHNICAL DOCUMENTATION: JOB ID: [id number]- All Rights Reserved rev-03/17 Reading location - IP/workstation name: [email or web address]
[2019-12-31 18:26] LABS: APPEARANCE,URINE SLIGHTLY-CLOUDY; BILIRUBIN,URINE NEGATIVE (NEGATIVE); COLOR,URINE YELLOW; GLUCOSE, URINE NEGATIVE (NEGATIVE); KETONES,URINE TRACE mg/dL (NEGATIVE); LEUKOCYTE ESTERASE,URINE NEGATIVE (NEGATIVE); NITRITE,URINE NEGATIVE (NEGATIVE); PROTEIN,URINE 30 mg/dL (NEGATIVE); URINE SPECIFIC GRAVITY 1.028; UROBILINOGEN,URINE NEGATIVE mg/dL (<2.0)
[2019-12-31] MEDS ORDERED: FAMOTIDINE INJ/PF 20 MG/2 ML SDV IV ONE (18:26)
[2019-12-31] MEDS ORDERED: PROMETHAZINE HCL INJ 25 MG/1 ML VIAL IV ONE ×2 (18:26→20:23)
--- NOTE | 2019-12-31 18:27 | ER Document Report ---
Entered by JULIO SILVER SCRIBE 12/31/19 1800 Acting as scribe for:JESU SERVIN DO ED General - General Chief Complaint: Flu Symptoms Stated Complaint: VOMITING/FEVER Time Seen by Provider: 12/31/19 16:33 Primary Care Provider: JAZMIN VELASQUEZ MD [Primary Care Provider] - Follow up as needed Information source: Patient, Relative - Spouse Notes: 34-year-old female presents to the emergency department complaining of flu-like symptoms that began last evening. Patient reports vomiting, nausea, weakness, body aches, fever and throat pain. Patient denies cough, dysuria and rhinorrhea. Patient's spouse reports that after visit to the ED four days ago, patient was feeling better for the next three days. Patient's spouse said that patient started to feel worse late last evening. Patient went to [facility] four days ago and has next appointment in one month. TRAVEL OUTSIDE OF THE [place] IN LAST 30 DAYS: No - Related Data Allergies/Adverse Reactions: No Known Allergies Allergy (Verified 12/24/19 09:44) Past Medical History - General Information source: Patient - Social History Smoking Status: Never Smoker Cigarette use (# per day): No Chew tobacco use (# tins/day): No Frequency of alcohol use: None Drug Abuse: None Family History: Reviewed & Not Pertinent Patient has suicidal ideation: No Patient has homicidal ideation: No Endocrine Medical History: Reports: Hx Diabetes Mellitus Type 2 - gestational Renal/ Medical History: Reports: Hx Ovarian Cysts Past Surgical History: Reports: Hx Appendectomy, Hx Section, Hx Gynecologic Surgery - Immunizations Immunizations up to date: Yes Hx Diphtheria, Pertussis, Tetanus Vaccination: Yes Review of Systems - Review of Systems Constitutional: See HPI, Fever, Weakness EENT: See HPI, Throat pain. denies: Nose discharge Cardiovascular: No symptoms reported Respiratory: See HPI. denies: Cough Gastrointestinal: See HPI, Nausea, Vomiting Genitourinary: See HPI. denies: Dysuria Female Genitourinary: See HPI, Musculoskeletal: No symptoms reported Skin: No symptoms reported Hematologic/Lymphatic: No symptoms reported Neurological/Psychological: No symptoms reported -: Yes All other systems reviewed and negative Physical Exam - Vital signs Vitals: Temp Pulse Resp BP Pulse Ox 98.2 F 96 20 113/66 99 12/31/19 20:10 12/31/19 20:10 12/31/19 20:10 12/31/19 20:10 12/31/19 20:10 - Notes Notes: Physical Exam: General: Alert, appears well. HEENT: Normocephalic. Atraumatic. PERRL. Extraocular movements intact. [place] pharynx clear. Dry mucous membrane. Neck: Supple. Non-tender. Respiratory: No respiratory distress. Clear and equal breath sounds bilaterally. Cardiovascular: Regular rate and rhythm. Abdominal: Normal Inspection. Non-tender. No distension. Normal Bowel Sounds. Back: No gross abnormalities. Extremities: Moves all four extremities. Upper extremities: Normal ROM. Ecchymosis on left antecubital fossa. Lower extremities: Normal inspection. No edema. Normal ROM. Neurological: Normal cognition. AAOx4. Normal speech. Psychological: Normal affect. Normal Mood. Skin: Hot. Dry. Normal color. Course - Re-evaluation Re-evalutation: 12/31/19 21:05 MDM 34 year old G2 does not feel any better s/p 2 liters NS and I have spoken with Dr. Lobato who has graciously agreed to see and evaluate for admission on the second floor. - Vital Signs Vital signs: Temp Pulse Resp BP Pulse Ox 98.2 F 96 20 113/66 99 12/31/19 20:10 12/31/19 20:10 12/31/19 20:10 12/31/19 20:10 12/31/19 20:10 - Laboratory Result Diagrams: 12/31/19 16:54 12/31/19 16:54 Laboratory results interpreted by me: 12/31/19 12/31/19 12/31/19 16:54 16:54 16:54 WBC 12.6 H MCV 75 L MCH 25.5 L RDW 14.2 H Lymph % (Auto) 5.1 L Absolute Neuts (auto) 11.4 H Seg Neutrophils % 90.1 H Sodium 135.9 L Carbon Dioxide 21 L Creatinine 0.44 L Glucose 115 H Serum HCG, Qual POSITIVE H Urine Protein Urine Ketones Urine Blood Urine Ascorbic Acid 12/31/19 17:32 WBC MCV MCH RDW Lymph % (Auto) Absolute Neuts (auto) Seg Neutrophils % Sodium Carbon Dioxide Creatinine Glucose Serum HCG, Qual Urine Protein 30 H Urine Ketones TRACE H Urine Blood MODERATE H Urine Ascorbic Acid 20 H Discharge - Discharge Clinical Impression: Nausea & vomiting Qualifiers: Vomiting type: unspecified Vomiting Intractability: intractable Qualified Code(s): R11.2 - Nausea with vomiting, unspecified Qualifiers: Weeks of gestation: 8 weeks Qualified Code(s): Z3A.08 - 8 weeks gestation of Subchorionic bleed Qualifiers: Fetus number: fetus 6 or greater Trimester: first trimester Qualified Code(s): O41.8X19 - Other specified disorders of amniotic fluid and membranes, first trimester, other fetus; O46.8X1 - Other antepartum hemorrhage, first trimester Disposition: ADMITTED OBSERVATION Admitting Provider: [place] [facility] Admitted: Post Referrals: JAZMIN VELASQUEZ MD [Primary Care Provider] - Follow up as needed I personally performed the services described in the documentation, reviewed and edited the documentation which was dictated to the scribe in my presence, and it accurately records my words and actions.
[2019-12-31] MEDS ORDERED: DEXTROSE 5%-LACTATED RINGERS 1,000 ML IV ONE (20:04)
[2019-12-31] MEDS ORDERED: ONDANSETRON 4 MG TAB.RAPDIS PO PRN (21:13)
--- NOTE | 2019-12-31 21:30 | PDOC H&P ---
History of Present Illness Admission Date/PCP: JAZMIN VELASQUEZ MD Patient complains of: Nausea and vomiting. History of Present Illness: YOON GILLILAND is a 34 year old female She is newly and has nausea and vomiting. Past Medical History Gynecological Infection: No Endocrine Medical History: Reports: Diabetes Mellitus Type 2 - gestational Past Surgical History Past Surgical History: Reports: Appendectomy, Section Social History Smoking Status: Never Smoker Frequency of Alcohol Use: None Hx Recreational Drug Use: No Hx Prescription Drug Abuse: No Family History Family History: Reviewed & Not Pertinent Parental Family History Reviewed: Yes Children Family History Reviewed: Yes Sibling(s) Family History Reviewed.: Yes Medication/Allergy Home Medications: Ondansetron [Zofran Odt 4 mg Tablet] 1 - 2 tab PO Q4H PRN #15 tab.rapdis 05/09/19 Oxycodone HCl/Acetaminophen [Percocet 5-325 mg Tablet] 1 - 2 tab PO TID PRN #15 tablet 05/09/19 Doxycycline Hyclate 100 mg PO BID #28 capsule 09/06/19 Ondansetron [Zofran Odt 4 mg Tablet] 1 - 2 tab PO Q4H PRN #15 tab.rapdis 09/06/19 Oxycodone HCl/Acetaminophen [Percocet 5-325 mg Tablet] 1 tab PO Q6H PRN #6 tablet 09/06/19 Metoclopramide HCl [Reglan] 10 mg PO Q6H #15 tablet 12/24/19 Allergies/Adverse Reactions: No Known Allergies Allergy (Verified 12/24/19 09:44) Physical Exam - Physical Exam Vital Signs: Temp Pulse Resp BP Pulse Ox 98.2 F 96 20 113/66 99 12/31/19 20:10 12/31/19 20:10 12/31/19 20:10 12/31/19 20:10 12/31/19 20:10 Intake & Output 12/30/19 12/31/19 01/01/20 06:59 06:59 06:59 Intake Total 1000 Balance 1000 Weight 84 kg General appearance: PRESENT: mild distress Head exam: PRESENT: atraumatic Mouth exam: PRESENT: dry mucosa Neck exam: PRESENT: full ROM. ABSENT: carotid bruit, JVD, lymphadenopathy, thyromegaly Respiratory exam: PRESENT: unlabored Cardiovascular exam: PRESENT: RRR Vascular exam: PRESENT: normal capillary refill GI/Abdominal exam: PRESENT: normal bowel sounds, soft. ABSENT: distended, guarding, mass, organolmegaly, rebound, tenderness Rectal exam: PRESENT: deferred Extremities exam: PRESENT: full ROM. ABSENT: calf tenderness, clubbing, pedal e margot Neurological exam: PRESENT: alert, awake, oriented to person, oriented to place, oriented to time, oriented to situation, CN II-XII grossly intact. ABSENT: motor sensory deficit Result Laboratory Results: 12/31/19 16:54 12/31/19 16:54 12/31/19 12/31/19 12/31/19 16:54 16:54 16:54 WBC 12.6 H RBC 4.93 Hgb 12.6 Hct 37.0 MCV 75 L MCH 25.5 L MCHC 34.0 RDW 14.2 H Plt Count 326 Seg Neutrophils % 90.1 H Sodium 135.9 L Potassium 4.1 Chloride 101 Carbon Dioxide 21 L Anion Gap 14 BUN 16 Creatinine 0.44 L Est GFR ( Amer) > 60 Glucose 115 H Calcium 9.1 Total Bilirubin 0.5 AST 17 Alkaline Phosphatase 40 Total Protein 7.8 Albumin 4.3 Serum HCG, Qual POSITIVE H Urine Color Urine Appearance Urine pH Ur Specific [place] Urine Protein Urine Glucose (UA) Urine Ketones Urine Blood Urine Nitrite Ur Leukocyte Esterase Urine WBC (Auto) Urine RBC (Auto) 12/31/19 17:32 WBC RBC Hgb Hct MCV MCH MCHC RDW Plt Count Seg Neutrophils % Sodium Potassium Chloride Carbon Dioxide Anion Gap BUN Creatinine Est GFR ( Amer) Glucose Calcium Total Bilirubin AST Alkaline Phosphatase Total Protein Albumin Serum HCG, Qual Urine Color YELLOW Urine Appearance SLIGHTLY-CLOUDY Urine pH 5.0 Ur Specific [place] 1.028 Urine Protein 30 H Urine Glucose (UA) NEGATIVE Urine Ketones TRACE H Urine Blood MODERATE H Urine Nitrite NEGATIVE Ur Leukocyte Esterase NEGATIVE Urine WBC (Auto) 3 Urine RBC (Auto) 7 Impressions: Transvaginal US 12/31/19 16:42 IMPRESSION: LIVING INTRAUTERINE . EGA 7 weeks 5 days. Trimester of : First trimester - 0 to 13 weeks. Plan IV fluids overnight. Assessment & Plan - Diagnosis (1) Nausea & vomiting Qualifiers: Vomiting type: unspecified Vomiting Intractability: intractable Qualified Code(s): R11.2 - Nausea with vomiting, unspecified (2) Qualifiers: Weeks of gestation: 8 weeks Qualified Code(s): Z3A.08 - 8 weeks gestation of (3) Subchorionic bleed Qualifiers: Fetus number: fetus 6 or greater Trimester: first trimester Qualified Code(s): O41.8X19 - Other specified disorders of amniotic fluid and membranes, first trimester, other fetus; O46.8X1 - Other antepartum hemorrhage, first trimester - Plan Summary Plan Summary: Plan IV fluids and antiemetics.
[2019-12-31 21:37] LABS: A TYPE INFLUENZA AG NEGATIVE (NEGATIVE); B INFLUENZA AG NEGATIVE (NEGATIVE)
[2020-01-01] MEDS ORDERED: INFLUENZA QUAD (6MOS+) 2019-20 VAC 0.5 ML SYR IM ONE (00:26)
[2020-01-01] MEDS: RINGERS SOLUTION,LACTATED 1,000 ML IV PRN ×2 (08:47)
[2020-01-01] MEDS ORDERED: NORMAL SALINE 1000 ML 1,000 ML with THIAMINE HCL 100 MG, MVI, ADULT NO.1 WITH VIT K 10 ... IV ONE ×4 (10:00)
[2020-01-01] MEDS: FAMOTIDINE INJ/PF 20 MG/2 ML SDV IV SCH ×2 (10:23→21:06)
--- NOTE | 2020-01-01 13:30 | PDOC PROGRESS REPORT ---
Subjective Progress Note for:: 01/01/20 Subjective:: nausea with eating jello today Reason For Visit: NAUSEA VOMITING Physical Exam - Physical Exam Vital Signs: Temp Pulse Resp BP Pulse Ox 97.7 F 91 16 107/46 L 100 01/01/20 11:05 01/01/20 11:05 01/01/20 11:05 01/01/20 11:05 01/01/20 11:05 Intake & Output 12/31/19 01/01/20 01/02/20 06:59 06:59 06:59 Intake Total 2360 1370 Output Total 300 500 Balance 2060 870 Weight 86 kg General appearance: PRESENT: no acute distress, well-developed, well-nourished Neck exam: PRESENT: full ROM. ABSENT: carotid bruit, JVD, lymphadenopathy, thyromegaly Respiratory exam: PRESENT: clear to auscultation fredy, symmetrical, unlabored Cardiovascular exam: PRESENT: RRR. ABSENT: diastolic murmur, rubs, systolic murmur Pulses: PRESENT: normal dorsalis pedis pul, +2 pedal pulses bilateral GI/Abdominal exam: PRESENT: normal bowel sounds, soft. ABSENT: distended, guarding, mass, organolmegaly, rebound, tenderness Extremities exam: PRESENT: full ROM. ABSENT: calf tenderness, clubbing, pedal edema Neurological exam: PRESENT: alert, awake, oriented to person, oriented to place, oriented to time, oriented to situation, CN II-XII grossly intact. ABSENT: motor sensory deficit Psychiatric exam: PRESENT: appropriate affect, normal mood. ABSENT: homicidal ideation, suicidal ideation Skin exam: PRESENT: dry, intact, warm. ABSENT: cyanosis, rash Result Laboratory Results: 12/31/19 16:54 12/31/19 16:54 12/31/19 12/31/19 12/31/19 16:54 16:54 16:54 WBC 12.6 H RBC 4.93 Hgb 12.6 Hct 37.0 MCV 75 L MCH 25.5 L MCHC 34.0 RDW 14.2 H Plt Count 326 Seg Neutrophils % 90.1 H Sodium 135.9 L Potassium 4.1 Chloride 101 Carbon Dioxide 21 L Anion Gap 14 BUN 16 Creatinine 0.44 L Est GFR ( Amer) > 60 Glucose 115 H Calcium 9.1 Total Bilirubin 0.5 AST 17 Alkaline Phosphatase 40 Total Protein 7.8 Albumin 4.3 Serum HCG, Qual POSITIVE H Urine Color Urine Appearance Urine pH Ur Specific [place] Urine Protein Urine Glucose (UA) Urine Ketones Urine Blood Urine Nitrite Ur Leukocyte Esterase Urine WBC (Auto) Urine RBC (Auto) 12/31/19 17:32 WBC RBC Hgb Hct MCV MCH MCHC RDW Plt Count Seg Neutrophils % Sodium Potassium Chloride Carbon Dioxide Anion Gap BUN Creatinine Est GFR ( Amer) Glucose Calcium Total Bilirubin AST Alkaline Phosphatase Total Protein Albumin Serum HCG, Qual Urine Color YELLOW Urine Appearance SLIGHTLY-CLOUDY Urine pH 5.0 Ur Specific [place] 1.028 Urine Protein 30 H Urine Glucose (UA) NEGATIVE Urine Ketones TRACE H Urine Blood MODERATE H Urine Nitrite NEGATIVE Ur Leukocyte Esterase NEGATIVE Urine WBC (Auto) 3 Urine RBC (Auto) 7 Impressions: Transvaginal US 12/31/19 16:42 IMPRESSION: LIVING INTRAUTERINE . EGA 7 weeks 5 days. Trimester of : First trimester - 0 to 13 weeks. Status: Imported from PACS Assessment & Plan - Diagnosis (1) Nausea & vomiting Qualifiers: Vomiting type: unspecified Vomiting Intractability: non-intractable Qualified Code(s): R11.2 - Nausea with vomiting, unspecified Is this a current diagnosis for this admission?: Yes Plan: patient reports phenergan was working well for her yesterday until she began having fevers, chills and body aches with abd pain. reviewed with patient that this is unlikely to be hyperemesis but will treat as Gastroenteritis and Hyperemesis - NPO for now and plan for adjust meds with strick I/O. Labs to r/o gallbladder disease. SCDs currently viable IUP (2) Qualifiers: Weeks of gestation: 8 weeks Qualified Code(s): Z3A.08 - 8 weeks gestation of Is this a current diagnosis for this admission?: Yes Plan: viable IUP - Time Time Spent with patient: 15-24 minutes Medications reviewed and adjusted accordingly: Yes Anticipated discharge: Home Within: within 24 hours - Inpatient Certification Based on my medical assessment, after consideration of the patient's comorbidities, presenting symptoms, or acuity I expect that the services needed warrant INPATIENT care.: Yes I certify that my determination is in accordance with my understanding of Medicare's requirements for reasonable and necessary INPATIENT services [42 CFR 412.3e].: Yes Medical Necessity: Need For IV Fluids
[2020-01-01] MEDS: ACETAMINOPHEN 325 MG TABLET PO PRN ×2 (14:12→21:05)
[2020-01-01 14:19] LABS: HEMATOCRIT 32.5 % (36.0-47.0); HEMOGLOBIN 11.1 g/dL (12.0-15.5); MEAN CORPUSCULAR HEMOGLOBIN 25.5 pg (27.0-33.4); MEAN CORPUSCULAR VOLUME 75 fl (80-97); PLATELET COUNT 284 10^3/uL (150-450); RED BLOOD COUNT 4.33 10^6/uL (3.72-5.28)
[2020-01-01 14:41] LABS: ALBUMIN 3.5 g/dL (3.5-5.0); ALKALINE PHOSPHATASE 31 U/L (38-126); AMYLASE 38 U/L (30-110); ANION GAP 13 (5-19); ASPARTATE AMINO TRANSFERASE 16 U/L (14-36); BILIRUBIN,DIRECT 0.2 mg/dL (0.0-0.4); BILIRUBIN,TOTAL 0.3 mg/dL (0.2-1.3); BLOOD UREA NITROGEN 7 mg/dL (7-20); CALCIUM 8.4 mg/dL (8.4-10.2); CARBON DIOXIDE 21 mmol/L (22-30); CHLORIDE 103 mmol/L (98-107); GLUCOSE 123 mg/dL (75-110); POTASSIUM 3.4 mmol/L (3.6-5.0); TOTAL PROTEIN 6.7 g/dL (6.3-8.2)
[2020-01-02] MEDS: RINGERS SOLUTION,LACTATED 1,000 ML IV PRN (05:11)
[2020-01-02] MEDS ORDERED: NORMAL SALINE 1000 ML 1,000 ML with THIAMINE HCL 100 MG, MVI, ADULT NO.1 WITH VIT K 10 ... IV ONE ×4 (07:37)
[2020-01-02] MEDS: FAMOTIDINE INJ/PF 20 MG/2 ML SDV IV SCH (10:24)
[2020-01-02 15:12] VITALS: BP 126/84
--- NOTE | 2020-01-02 17:07 | PDOC DISCHARGE SUMMARY ---
Impression - Admit/DC Date/PCP Admission Date/Primary Care Provider: 12/31/19 21:39 JAZMIN VELASQUEZ MD Discharge Date: 01/02/20 - Discharge Diagnosis (1) Gastritis Is this a current diagnosis for this admission?: Yes (2) Nausea & vomiting Is this a current diagnosis for this admission?: Yes (3) Is this a current diagnosis for this admission?: Yes - Assessment Summary: admmitted with signs and symptoms of dehydration from gastroenteritis. has had two banana bags and antiemetics with good results. now feeling better and has tolerated a PO challenge. ready for discharge - Additional Information Discharge Diet: As Tolerated Discharge Activity: Activity As Tolerated, Balance Activity w/Rest Referrals: JAZMIN VELASQUEZ MD [Primary Care Provider] - Follow up as needed Prescriptions: Promethazine HCl [Phenergan 25 mg Tablet] 25 mg PO Q4HP PRN #20 tablet PRN Reason: Famotidine [Pepcid 20 mg Tablet] 20 mg PO DAILY #12 tablet Home Medications: Ondansetron [Zofran Odt 4 mg Tablet] 1 - 2 tab PO Q4H PRN #15 tab.rapdis 05/09/19 Oxycodone HCl/Acetaminophen [Percocet 5-325 mg Tablet] 1 - 2 tab PO TID PRN #15 tablet 05/09/19 Doxycycline Hyclate 100 mg PO BID #28 capsule 09/06/19 Ondansetron [Zofran Odt 4 mg Tablet] 1 - 2 tab PO Q4H PRN #15 tab.rapdis 09/06/19 Oxycodone HCl/Acetaminophen [Percocet 5-325 mg Tablet] 1 tab PO Q6H PRN #6 tablet 09/06/19 Metoclopramide HCl [Reglan] 10 mg PO Q6H #15 tablet 12/24/19 Famotidine [Pepcid 20 mg Tablet] 20 mg PO DAILY #12 tablet 01/02/20 Promethazine HCl [Phenergan 25 mg Tablet] 25 mg PO Q4HP PRN #20 tablet 01/02/20 History of Present Illiness History of Present Illness: YOON GILLILAND is a 34 year old female Physical Exam - Physical Exam Vital Signs: Temp Pulse Resp BP Pulse Ox 98.7 F 68 16 126/84 H 100 01/02/20 15:11 01/02/20 15:11 01/02/20 15:11 01/02/20 15:11 01/02/20 15:11 Intake & Output 01/01/20 01/02/20 01/03/20 06:59 06:59 06:59 Intake Total 2360 3910 Output Total 300 1800 Balance 2059 2109 Weight 86 kg 86.1 kg Results Laboratory Results: WBC 11.0 10^3/uL (4.0-10.5) H 01/01/20 14:07 RBC 4.33 10^6/uL (3.72-5.28) 01/01/20 14:07 Hgb 11.1 g/dL (12.0-15.5) L 01/01/20 14:07 Hct 32.5 % (36.0-47.0) L 01/01/20 14:07 MCV 75 fl (80-97) L 01/01/20 14:07 MCH 25.5 pg (27.0-33.4) L 01/01/20 14:07 MCHC 34.0 g/dL (32.0-36.0) 01/01/20 14:07 RDW 14.0 % (11.5-14.0) 01/01/20 14:07 Plt Count 284 10^3/uL (150-450) 01/01/20 14:07 Lymph % (Auto) 5.1 % (13-45) L 12/31/19 16:54 [place] % (Auto) 4.5 % (3-13) 12/31/19 16:54 Eos % (Auto) 0.2 % (0-6) 12/31/19 16:54 Baso % (Auto) 0.1 % (0-2) 12/31/19 16:54 Absolute Neuts (auto) 11.4 10^3/uL (1.7-8.2) H 12/31/19 16:54 Absolute Lymphs (auto) 0.6 10^3/uL (0.5-4.7) 12/31/19 16:54 Absolute Monos (auto) 0.6 10^3/uL (0.1-1.4) 12/31/19 16:54 Absolute Eos (auto) 0.0 10^3/uL (0.0-0.6) 12/31/19 16:54 Absolute Basos (auto) 0.0 10^3/uL (0.0-0.2) 12/31/19 16:54 Seg Neutrophils % 90.1 % (42-78) H 12/31/19 16:54 Sodium 137.0 mmol/L (137-145) 01/01/20 14:07 Potassium 3.4 mmol/L (3.6-5.0) L 01/01/20 14:07 Chloride 103 mmol/L (98-107) 01/01/20 14:07 Carbon Dioxide 21 mmol/L (22-30) L 01/01/20 14:07 Anion Gap 13 (5-19) 01/01/20 14:07 BUN 7 mg/dL (7-20) 01/01/20 14:07 Creatinine 0.39 mg/dL (0.52-1.25) L 01/01/20 14:07 Est GFR ( Amer) > 60 (>60) 01/01/20 14:07 Est GFR (MDRD) Non-Af > 60 (>60) 01/01/20 14:07 Glucose 123 mg/dL (75-110) H 01/01/20 14:07 POC Glucose 97 mg/dL (70-110) 12/31/19 23:56 Calcium 8.4 mg/dL (8.4-10.2) 01/01/20 14:07 Total Bilirubin 0.3 mg/dL (0.2-1.3) 01/01/20 14:07 Direct Bilirubin 0.2 mg/dL (0.0-0.4) 01/01/20 14:07 Neonat Total Bilirubin Not Reportable 01/01/20 14:07 Neonat Direct Bilirubin Not Reportable 01/01/20 14:07 Neonat Indirect Bili Not Reportable 01/01/20 14:07 AST 16 U/L (14-36) 01/01/20 14:07 ALT 16 U/L (<35) 01/01/20 14:07 Alkaline Phosphatase 31 U/L (38-126) L 01/01/20 14:07 Total Protein 6.7 g/dL (6.3-8.2) 01/01/20 14:07 Albumin 3.5 g/dL (3.5-5.0) 01/01/20 14:07 Amylase 38 U/L (30-110) 01/01/20 14:07 Lipase 59.0 U/L (23-300) 01/01/20 14:07 Serum HCG, Qual POSITIVE (NEGATIVE) H 12/31/19 16:54 Urine Color YELLOW 12/31/19 17:32 Urine Appearance SLIGHTLY-CLOUDY 12/31/19 17:32 Urine pH 5.0 (5.0-9.0) 12/31/19 17:32 Ur Specific [place] 1.028 12/31/19 17:32 Urine Protein 30 mg/dL (NEGATIVE) H 12/31/19 17:32 Urine Glucose (UA) NEGATIVE mg/dL (NEGATIVE) 12/31/19 17:32 Urine Ketones TRACE mg/dL (NEGATIVE) H 12/31/19 17:32 Urine Blood MODERATE (NEGATIVE) H 12/31/19 17:32 Urine Nitrite NEGATIVE (NEGATIVE) 12/31/19 17:32 Urine Bilirubin NEGATIVE (NEGATIVE) 12/31/19 17:32 Urine Urobilinogen NEGATIVE mg/dL (<2.0) 12/31/19 17:32 Ur Leukocyte Esterase NEGATIVE (NEGATIVE) 12/31/19 17:32 Urine WBC (Auto) 3 /HPF 12/31/19 17:32 Urine RBC (Auto) 7 /HPF 12/31/19 17:32 Squamous Epi Cells Auto 3 /HPF 12/31/19 17:32 Urine Mucus (Auto) MOD /LPF 12/31/19 17:32 Urine Ascorbic Acid 20 (NEGATIVE) H 12/31/19 17:32 Influenza A (Rapid) NEGATIVE (NEGATIVE) 12/31/19 21:10 Influenza B (Rapid) NEGATIVE (NEGATIVE) 12/31/19 21:10 Impressions: Transvaginal US 12/31/19 16:42 IMPRESSION: LIVING INTRAUTERINE . EGA 7 weeks 5 days. Trimester of : First trimester - 0 to 13 weeks. Stroke Is this a Stroke Patient?: No Acute Heart Failure - Is this a Heart Failure Patient?: No
== END 2020-01-02 17:25 | disposition home or self-care (01) ==
LOC: ER 15:10 → EH 21:39 → 2N 23:09
PROVIDERS: ADMIT Obstetrics & Gynecology; ATTEND Obstetrics & Gynecology
DX: O99.611 Diseases of the digestive system complicating pregnancy, first trimester (principal); K29.70 Gastritis, unspecified, without bleeding; O26.891 Other specified pregnancy related conditions, first trimester; R11.2 Nausea with vomiting, unspecified; E86.0 Dehydration; O41.8X19 Other specified disorders of amniotic fluid and membranes, first trimester, other fetus; O46.8X1 Other antepartum hemorrhage, first trimester; R50.9 Fever, unspecified; R07.0 Pain in throat; Z3A.01 Less than 8 weeks gestation of pregnancy; Z90.49 Acquired absence of other specified parts of digestive tract; Z86.32 Personal history of gestational diabetes; Z87.42 Personal history of other diseases of the female genital tract
CPT/HCPCS: 96376; 99284; 96361; 96374; 96375; 36415 ×2; 82962; 82150; 83690; 84703; 85025; 85027; 80053 ×2; 81001; 87804; 76817; 93976; G0378 ×2; S0119; J3490 ×4; J2550; J3411 ×2; J7121; J7030 ×3; J7120 ×2; S0028 ×3

== ENCOUNTER 2020-01-06 09:20 | Emergency (ER) | payer BC ==
[2020-01-06] MEDS ORDERED: NORMAL SALINE 1000 ML 1,000 ML IV ONE (09:28)
[2020-01-06] MEDS ORDERED: FAMOTIDINE INJ/PF 20 MG/2 ML SDV IV ONE (09:28)
--- NOTE | 2020-01-06 09:28 | ER Document Report ---
ED Medical Screen (RME) - General Chief Complaint: Nausea/Vomiting Stated Complaint: VOMITING/ABDOMINAL PAIN Time Seen by Provider: 01/06/20 09:24 Primary Care Provider: JAZMIN VELASQUEZ MD [Primary Care Provider] - Follow up as needed Mode of Arrival: Wheelchair Information source: Patient Notes: 34-year-old female presented to ED for complaint of nausea and vomiting. States she was just discharged from the hospital for the same thing. She states she started vomiting about an hour ago and it has some blood-tinged to the sputum at this time. Vomiting started first. She states that the doctor put her on medicine for reflux she has been taking it but this morning she just started throwing up anyway states she does not remember which kind of medicine that she put her on. She is about 8 weeks last menstrual period was November 09 I have greeted and performed a rapid initial assessment of this patient. A comprehensive ED assessment and evaluation of the patient, analysis of test results and completion of medical decision making process will be conducted by an additional ED providers. TRAVEL OUTSIDE OF THE [place] IN LAST 30 DAYS: No - Related Data Allergies/Adverse Reactions: No Known Allergies Allergy (Verified 12/24/19 09:44) Past Medical History Endocrine Medical History: Reports: Hx Diabetes Mellitus Type 2 - gestational Renal/ Medical History: Reports: Hx Ovarian Cysts. Denies: Hx Peritoneal Dialysis Past Surgical History: Reports: Hx Appendectomy, Hx Section, Hx Gynecologic Surgery - Immunizations Immunizations up to date: Yes Hx Diphtheria, Pertussis, Tetanus Vaccination: Yes Doctor's Discharge - Discharge Referrals: JAZMIN VELASQUEZ MD [Primary Care Provider] - Follow up as needed
[2020-01-06 10:01] LABS: ABSOLUTE EOSINOPHILS # (AUTO) 0.2 10^3/uL (0.0-0.6); ABSOLUTE NEUT (AUTO) 11.5 10^3/uL (1.7-8.2); BASOPHILS % (AUTO) 0.2 % (0-2); HEMATOCRIT 37.7 % (36.0-47.0); HEMOGLOBIN 12.4 g/dL (12.0-15.5); MEAN CORPUSCULAR HEMOGLOBIN 24.8 pg (27.0-33.4); MEAN CORPUSCULAR HGB CONC 32.8 g/dL (32.0-36.0); MEAN CORPUSCULAR VOLUME 75 fl (80-97); MONOCYTES % (AUTO) 5.7 % (3-13); PLATELET COUNT 441 10^3/uL (150-450); RED CELL DISTRIBUTION WIDTH 13.9 % (11.5-14.0); SEGMENTED NEUTROPHILS % (AUTO) 69.1 % (42-78); TOTAL CELLS COUNTED % (AUTO) 100 %; WHITE BLOOD COUNT 16.6 10^3/uL (4.0-10.5)
[2020-01-06] MEDS ORDERED: PROCHLORPERAZINE EDISYLATE INJ 10 MG/2 ML VIAL IV ONE (10:13)
[2020-01-06] MEDS ORDERED: DIPHENHYDRAMINE HCL 50 MG/ML VIAL IV ONE (10:13)
--- NOTE | 2020-01-06 10:17 | ER Document Report ---
ED GI/ - General Chief Complaint: Nausea/Vomiting Stated Complaint: VOMITING/ABDOMINAL PAIN Time Seen by Provider: 01/06/20 09:55 Primary Care Provider: JAZMIN VELASQUEZ MD [Primary Care Provider] - Follow up as needed Mode of Arrival: Wheelchair Notes: Patient is currently 8 weeks G3, P1. Patient reports nausea and vomiting throughout this . Patient was recently hospitalized this past week and was discharged a few days ago. Patient states that she started vomiting again this morning and has vomited 10+ times. Patient complains of upper abdominal tenderness. Patient denies any urinary symptoms. Patient states she has been taking famotidine without improvement of her symptoms. TRAVEL OUTSIDE OF THE [place] IN LAST 30 DAYS: No - HPI Patient complains to provider of: Abdominal pain, , Vomiting Onset: This morning Timing/Duration: Persistent Quality of pain: Achy Pain Level: 4 Context: Location: Epigastric Vaginal bleeding (Compared to normal period): None Menstrual period history: Associated symptoms: Nausea, Vomiting. denies: Urinary hesitancy, Urinary frequency, Urinary retention, Urinary urgency Exacerbated by: Denies Relieved by: Denies Similar symptoms previously: Yes Recently seen / treated by doctor: Yes - Related Data Allergies/Adverse Reactions: No Known Allergies Allergy (Verified 12/24/19 09:44) Home Medications: "acid reflux med" Past Medical History - General Information source: Patient - Social History Smoking Status: Never Smoker Chew tobacco use (# tins/day): Yes Frequency of alcohol use: None Drug Abuse: None Family History: Reviewed & Not Pertinent Patient has suicidal ideation: No Patient has homicidal ideation: No Endocrine Medical History: Reports: Hx Diabetes Mellitus Type 2 - gestational Renal/ Medical History: Reports: Hx Ovarian Cysts. Denies: Hx Peritoneal Dialysis Past Surgical History: Reports: Hx Appendectomy, Hx Section, Hx Gynecologic Surgery - d&c - Immunizations Immunizations up to date: Yes Hx Diphtheria, Pertussis, Tetanus Vaccination: Yes Review of Systems - Review of Systems Constitutional: No symptoms reported. denies: Fever, Recent illness EENT: No symptoms reported Cardiovascular: No symptoms reported. denies: Chest pain Respiratory: No symptoms reported. denies: Cough, Short of breath Gastrointestinal: Abdominal pain, Vomiting Genitourinary: No symptoms reported. denies: Dysuria, Frequency, Flank pain Female Genitourinary: No symptoms reported, . denies: Vaginal disch arge, Vaginal bleeding Musculoskeletal: No symptoms reported. denies: Back pain Skin: No symptoms reported Hematologic/Lymphatic: No symptoms reported Neurological/Psychological: No symptoms reported Physical Exam - Vital signs Vitals: Temp Pulse Resp BP Pulse Ox 98.6 F 100 20 110/78 100 01/06/20 09:30 01/06/20 09:30 01/06/20 09:30 01/06/20 09:30 01/06/20 09:30 - General General appearance: Alert In distress: Mild - HEENT Head: Normocephalic, Atraumatic Eyes: Normal Conjunctiva: Normal Nasal: Normal Mouth/Lips: Normal Mucous membranes: Dry Neck: Normal, Supple. No: Lymphadenopathy - Respiratory Respiratory status: No respiratory distress Chest status: Nontender Breath sounds: Normal. No: Rales, Rhonchi, Stridor, Wheezing Chest palpation: Normal - Cardiovascular Rhythm: Regular Heart sounds: S1 appreciated, S2 appreciated - Abdominal Inspection: Normal Distension: No distension Bowel sounds: Normal Tenderness: Tender - epigastric Organomegaly: No organomegaly - Back Back: Normal, Nontender. No: CVA tenderness - Extremities General upper extremity: Normal inspection, Normal strength General lower extremity: Normal inspection, Normal strength - Neurological Neuro grossly intact: Yes Cognition: Normal Abby Coma Scale Eye Opening: Spontaneous [place] Coma Scale Verbal: Oriented [place] Coma Scale Motor: Obeys Commands Abby Coma Scale Total: 15 - Psychological Associated symptoms: Normal affect, Normal mood - Skin Skin Temperature: Warm Skin Moisture: Dry Skin Color: Normal Course - Re-evaluation Re-evalutation: 01/06/20 11:19 Patient resting with eyes closed, arouses easily to voice. Patient states that nausea is improved at this time. 01/06/20 12:12 Patient tolerating oral fluids without emesis. Patient states she is feeling much better. Patient was able to ambulate and void. Patient states she is ready to be discharged. - Vital Signs Vital signs: Temp Pulse Resp BP Pulse Ox 97.7 F 81 16 110/71 98 01/06/20 12:19 01/06/20 12:19 01/06/20 12:19 01/06/20 12:19 01/06/20 12:19 - Laboratory Result Diagrams: 01/06/20 09:45 01/06/20 09:45 Laboratory results interpreted by me: 01/06/20 01/06/20 01/06/20 09:45 09:45 11:56 WBC 16.6 H MCV 75 L MCH 24.8 L Absolute Neuts (auto) 11.5 H Carbon Dioxide 21 L Creatinine 0.39 L Glucose 126 H Total Protein 8.5 H Beta HCG, Quant 64348.00 H Urine Blood MODERATE H Discharge - Discharge Clinical Impression: Nausea & vomiting Qualifiers: Vomiting type: unspecified Vomiting Intractability: non-intractable Qualified Code(s): R11.2 - Nausea with vomiting, unspecified Qualifiers: Weeks of gestation: 8 weeks Qualified Code(s): Z3A.08 - 8 weeks gestation of Gastritis Qualifiers: Gastritis type: unspecified gastritis Chronicity: unspecified Gastritis bleeding: presence of bleeding unspecified Qualified Code(s): K29.70 - Gastritis, unspecified, without bleeding Condition: Stable Disposition: HOME, SELF-CARE Instructions: Antinausea Medication ([facility]), Intravenous (IV) Fluids ([facility]), Vomiting ([facility]) Additional Instructions: Return immediately for any new or worsening symptoms Followup with your primary care provider, call tomorrow to make a followup appointment Prescriptions: Promethazine HCl [Phenergan 25 mg Supp.rect] 1 supp [place] Q6H PRN #12 supp.rect PRN Reason: Referrals: JAZMIN VELASQUEZ MD [Primary Care Provider] - Follow up as needed
[2020-01-06 10:25] LABS: ALBUMIN 4.7 g/dL (3.5-5.0); ALKALINE PHOSPHATASE 41 U/L (38-126); ANION GAP 16 (5-19); ASPARTATE AMINO TRANSFERASE 21 U/L (14-36); BILIRUBIN,DIRECT 0.3 mg/dL (0.0-0.4); BILIRUBIN,TOTAL 0.5 mg/dL (0.2-1.3); BLOOD UREA NITROGEN 14 mg/dL (7-20); CALCIUM 10.1 mg/dL (8.4-10.2); CARBON DIOXIDE 21 mmol/L (22-30); CHLORIDE 101 mmol/L (98-107); GLUCOSE 126 mg/dL (75-110); POTASSIUM 4.1 mmol/L (3.6-5.0); TOTAL PROTEIN 8.5 g/dL (6.3-8.2)
[2020-01-06] MEDS ORDERED: RINGERS SOLUTION,LACTATED 1,000 ML IV ONE (11:19)
[2020-01-06 12:14] LABS: APPEARANCE,URINE CLOUDY; BILIRUBIN,URINE NEGATIVE (NEGATIVE); COLOR,URINE YELLOW; GLUCOSE, URINE NEGATIVE (NEGATIVE); KETONES,URINE NEGATIVE (NEGATIVE); LEUKOCYTE ESTERASE,URINE NEGATIVE (NEGATIVE); NITRITE,URINE NEGATIVE (NEGATIVE); PROTEIN,URINE NEGATIVE (NEGATIVE); URINE SPECIFIC GRAVITY 1.016; UROBILINOGEN,URINE NEGATIVE mg/dL (<2.0)
[2020-01-06 12:19] VITALS: BP 110/71
== END 2020-01-06 12:37 | disposition home or self-care (01) ==
LOC: ER 09:20
DX: O99.611 Diseases of the digestive system complicating pregnancy, first trimester (principal); K29.70 Gastritis, unspecified, without bleeding; K21.9 Gastro-esophageal reflux disease without esophagitis; O21.9 Vomiting of pregnancy, unspecified; O26.891 Other specified pregnancy related conditions, first trimester; R10.13 Epigastric pain; R10.816 Epigastric abdominal tenderness; Z79.899 Other long term (current) drug therapy; Z3A.08 8 weeks gestation of pregnancy
CPT/HCPCS: 99284; 96361; 96374; 96375; 36415; 87086; 84702; 83690; 83735; 85025; 87088; 80053; 81001; J1200; J0780; J7030; S0028

== ENCOUNTER 2020-03-02 21:54 | Emergency (ER) | payer BC ==
[2020-03-02 22:03] VITALS: BP 119/72
== END 2020-03-02 23:30 | disposition left against medical advice (07) ==
LOC: ER 21:54
DX: Z53.21 Procedure and treatment not carried out due to patient leaving prior to being seen by health care provider (principal)

== ENCOUNTER → 2020-06-09 | Outpatient (CLI) | payer BC ==
[2020-06-09 17:54] LABS: ABSOLUTE EOSINOPHILS # (AUTO) 0.1 10^3/uL (0.0-0.6); BASOPHILS % (AUTO) 0.1 % (0-2); TOTAL CELLS COUNTED % (AUTO) 100 %
[2020-06-09 18:10] LABS: ABSOLUTE LYMPHOCYTES (AUTO) 2.2 10^3/uL (0.5-4.7); ABSOLUTE MONOCYTES (AUTO) 0.8 10^3/uL (0.1-1.4); EOSINOPHILS % (AUTO) 0.7 % (0-6); HEMATOCRIT 33.5 % (36.0-47.0); HEMOGLOBIN 10.8 g/dL (12.0-15.5); LYMPHOCYTES % (AUTO) 19.8 % (13-45); MEAN CORPUSCULAR HEMOGLOBIN 23.3 pg (27.0-33.4); MEAN CORPUSCULAR HGB CONC 32.3 g/dL (32.0-36.0); MEAN CORPUSCULAR VOLUME 72 fl (80-97); PLATELET COUNT 356 10^3/uL (150-450); RED BLOOD COUNT 4.64 10^6/uL (3.72-5.28); RED CELL DISTRIBUTION WIDTH 15.6 % (11.5-14.0); SEGMENTED NEUTROPHILS % (AUTO) 72.4 % (42-78); WHITE BLOOD COUNT 11.1 10^3/uL (4.0-10.5)
[2020-06-09 18:16] LABS: ALBUMIN 3.8 g/dL (3.5-5.0); ALKALINE PHOSPHATASE 54 U/L (38-126); AMYLASE 50 U/L (30-110); ANION GAP 7 (5-19); ASPARTATE AMINO TRANSFERASE 17 U/L (14-36); BILIRUBIN,TOTAL 0.2 mg/dL (0.2-1.3); BLOOD UREA NITROGEN 9 mg/dL (7-20); CALCIUM 9.5 mg/dL (8.4-10.2); CARBON DIOXIDE 21 mmol/L (22-30); CHLORIDE 106 mmol/L (98-107); GLUCOSE 110 mg/dL (75-110); POTASSIUM 4.1 mmol/L (3.6-5.0); TOTAL PROTEIN 7.2 g/dL (6.3-8.2)
== END ==
LOC: OD 17:03
PROVIDERS: ATTEND Student in an Organized Health Care Education/Training Program
DX: R10.11 Right upper quadrant pain (principal); Z13.21 Encounter for screening for nutritional disorder
CPT/HCPCS: 36415; 80053; 82150; 83690; 85025

== ENCOUNTER 2020-06-19 16:50 | Outpatient (CLI) | payer BC ==
[2020-06-19] MEDS ORDERED: PROMETHAZINE HCL INJ 25 MG/1 ML VIAL ONE (17:35)
[2020-06-19] MEDS ORDERED: PROMETHAZINE HCL INJ 25 MG/1 ML VIAL IV ONE (17:49)
[2020-06-19 18:55] LABS: AMORPHOUS SEDIMENT,URINE TRACE /HPF; APPEARANCE,URINE TURBID; BILIRUBIN,URINE NEGATIVE (NEGATIVE); COLOR,URINE YELLOW; GLUCOSE, URINE >=500 mg/dL (NEGATIVE); KETONES,URINE TRACE mg/dL (NEGATIVE); LEUKOCYTE ESTERASE,URINE NEGATIVE (NEGATIVE); NITRITE,URINE NEGATIVE (NEGATIVE); PROTEIN,URINE 100 mg/dL (NEGATIVE); URINE SPECIFIC GRAVITY 1.028; UROBILINOGEN,URINE NEGATIVE mg/dL (<2.0)
[2020-06-19 19:05] LABS: URINE AMPHETAMINES SCREEN NEGATIVE; URINE BARBITURATES SCREEN NEGATIVE; URINE BENZODIAZEPINES SCREEN NEGATIVE; URINE COCAINE SCREEN NEGATIVE; URINE MARIJUANA (THC) SCREEN NEGATIVE; URINE METHADONE SCREEN NEGATIVE; URINE PHENCYCLIDINE SCREEN NEGATIVE
== END 2020-06-19 18:51 | disposition home or self-care (01) ==
LOC: LC 16:50
PROVIDERS: ATTEND Obstetrics & Gynecology Gynecology
DX: O21.2 Late vomiting of pregnancy (principal); Z3A.31 31 weeks gestation of pregnancy
CPT/HCPCS: 82962; 81001; 80307; 59899; J2550

== ENCOUNTER 2020-06-23 16:38 | Inpatient (IN) | payer BC ==
[2020-06-23] MEDS ORDERED: PROMETHAZINE HCL INJ 25 MG/1 ML VIAL IV ONE (17:25)
[2020-06-23] MEDS ORDERED: NORMAL SALINE 1000 ML 1,000 ML IV PRN (17:25)
[2020-06-23] MEDS ORDERED: PROMETHAZINE HCL INJ 25 MG/1 ML VIAL ONE (17:30)
[2020-06-23] MEDS ORDERED: ZOLPIDEM TARTRATE 5 MG TABLET PO PRN (17:58)
--- NOTE | 2020-06-23 18:07 | Admission Physical ---
Datetime Report Generated by CPN: 06/23/2020 18:06 CURRENT ADMISSION Chief Complaint: Other Chief Complaint Other: Nausea Indication for Induction: Not Applicable Admit Impression : Medical Complication Admit Plan: Admit to Unit; Observation/Evaluation ALLERGIES Medication Allergies: No Medication Allergies: No Known Allergies (06/19/2020) Latex: No Latex Allergies OBSTETRICAL HISTORY EDC: 08/15/2020 00:00 : 3 Para: 1 Term: 0 : 1 SAB: 1 IAB: 0 [place] PHYSICAL EXAM General: Normal HEENT: Abnormal Neurologic: Normal Thyroid: Normal Heart: Normal Lungs: Normal Breast: Deferred Back: Normal Abdomen: Normal Genitourinary Exam: Deferred Extremities: Normal DTRs: Normal Pelvic Type: Adequate Physical Exam Comments: hirsuitism Vital Signs: Reviewed MEMBRANES Pooling: Negative FETUS A EGA: 32.3 Monitoring: External US FHR- Baseline: 129 Variability: Moderate 6-25bpm Decelerations: None FHR Category: Category I Admit Comment: Plan to monitor and treat with iv fluids. INFORMED CONSENT Signature: with User ID: [email or web address]
[2020-06-23 18:50] LABS: HEMATOCRIT 32.6 % (36.0-47.0); HEMOGLOBIN 10.5 g/dL (12.0-15.5); MEAN CORPUSCULAR HEMOGLOBIN 22.9 pg (27.0-33.4); MEAN CORPUSCULAR HGB CONC 32.2 g/dL (32.0-36.0); MEAN CORPUSCULAR VOLUME 71 fl (80-97); PLATELET COUNT 353 10^3/uL (150-450); RED BLOOD COUNT 4.58 10^6/uL (3.72-5.28); WHITE BLOOD COUNT 12.2 10^3/uL (4.0-10.5)
[2020-06-23] MEDS: NORMAL SALINE 1000 ML 1,000 ML IV PRN (19:00)
[2020-06-23 19:15] LABS: ALBUMIN 3.6 g/dL (3.5-5.0); ALKALINE PHOSPHATASE 64 U/L (38-126); ANION GAP 9 (5-19); ASPARTATE AMINO TRANSFERASE 15 U/L (14-36); BILIRUBIN,TOTAL 0.3 mg/dL (0.2-1.3); BLOOD UREA NITROGEN 9 mg/dL (7-20); CALCIUM 8.9 mg/dL (8.4-10.2); CARBON DIOXIDE 20 mmol/L (22-30); CHLORIDE 109 mmol/L (98-107); GLUCOSE 81 mg/dL (75-110); TOTAL PROTEIN 6.9 g/dL (6.3-8.2)
[2020-06-23] MEDS ORDERED: DEXTROSE 40% GEL 15 GM TUBE PO PRN (21:00)
[2020-06-23] MEDS ORDERED: GLUCAGON,HUMAN RECOMB 1 MG INJ IM PRN (21:00)
[2020-06-23] MEDS ORDERED: DEXTROSE 50%-WATER SYRINGE 12.5 GM/25 ML DOSE IV PRN (21:00)
[2020-06-23] MEDS ORDERED: DEXTROSE 50%-WATER SYRINGE 25 GM/50 ML DOSE IV PRN (21:00)
[2020-06-23] MEDS ORDERED: DEXTROSE 40% GEL 15 GM TUBE X 2 PO PRN (21:00)
[2020-06-23] MEDS ORDERED: PROMETHAZINE HCL INJ 25 MG/1 ML VIAL IV PRN (21:01)
[2020-06-23] MEDS ORDERED: ACETAMINOPHEN 650 MG SUPP.RECT PR PRN (22:21)
[2020-06-23] MEDS ORDERED: MORPHINE SULFATE 10 MG/ML INJ IV PRN ×4 (22:21→22:31)
--- NOTE | 2020-06-23 22:21 | PDOC CONSULTATION ---
Consultation Consult Date: 06/23/20 Attending physician:: ROSA LOBATO Provider Consulted: FALGUNI GALVAN Consult reason:: Gestational diabetes with nausea and vomiting History of Present Illness Admission Date/PCP: 06/23/20 17:38 JAZMIN VELASQUEZ MD Patient complains of: Nausea and vomiting History of Present Illness: YOON GILLILAND is a 34 year old female who was admitted to observation status by Dr. Tito Lobato for intractable nausea and vomiting. She is a 3 para 1 AB 1 female at 33 weeks of gestation with her current complicated by first trimester hyperemesis gravidarum, a subchorionic bleed in the first trimester and gestational diabetes mellitus. Over the course of the last 5 days she has been experiencing intractable nausea and vomiting. Her fasting blood sugars have been in the 110s and 120s and her preprandial blood sugars have been in the 200s. Her nausea and vomiting have been associated with dizziness, generalized weakness and fatigue. Her nausea and vomiting have been accompanied by generalized abdominal pain "tummy ache" and cramping with episodes of vomiting. She admits prior similar episodes. She has not identified any ag gravating or ameliorating factors for her nausea and vomiting. Past Medical History Cardiac Medical History: Denies: Coronary Artery Disease, Hyperlipidema, Hypertension Pulmonary Medical History: Denies: Asthma, Chronic Obstructive Pulmonary Disease (COPD) EENT Medical History: Reports: Eyes - Prescription glasses Denies: Cataracts, Ears - Hearing aids Neurological Medical History: Denies: Multiple Sclerosis, Seizures Endocrine Medical History: Reports: Gestational Diabetes, Other - Polycystic ovary disease Denies: Diabetes Mellitus Type 1, Diabetes Mellitus Type 2, Hyperthyroidism, Hypothyroidism Renal/ Medical History: Reports: Other - Pelvic inflammatory disease Denies: Chronic Kidney Disease, Nephrolithiasis Malignancy Medical History: Reports: None GI Medical History: Denies: Cirrhosis, Crohn's Disease, Hepatitis, Peptic Ulcer Disease, Ulcerative Colitis Musculoskeltal Medical History: Denies: Arthritis, Gout Skin Medical History: Denies: Eczema, Psoriasis Psychiatric Medical History: Denies: Alcohol Dependency, Substance Abuse, Tobacco Dependency Traumatic Medical History: Reports: None Hematology: Denies: Anemia, Bleeding Tendencies Infectious Medical History: Reports: None Past Surgical History Past Surgical History: Reports: Appendectomy, Section Social History Information Source: Patient Lives with: Family, Spouse/Significant other Smoking Status: Never Smoker Electronic Cigarette use?: No Frequency of Alcohol Use: None Hx Recreational Drug Use: No Drugs: None Hx Prescription Drug Abuse: No - Advance Directive Resuscitation Status: Full Code Surrogate healthcare decision maker:: Arnaldo Russo Family History Family History: Hypertension - Father, Malignancy - Aunt. denies: CAD, DM Parental Family History Reviewed: Yes Children Family History Reviewed: No Sibling(s) Family History Reviewed.: Yes Medication/Allergy Home Medications: Glyburide [Diabeta 2.5 Mg Tablet] 2.5 mg PO DAILY 06/19/20 95/Iron Fum/Folic/Dha [ + Dha Combo Pack] 1 tab PO DAILY 06/19/20 Progesterone, Micronized [Endometrin] 100 mg VG DAILY 06/19/20 Allergies/Adverse Reactions: No Known Allergies Allergy (Verified 06/23/20 18:42) Review of Systems Constitutional: ABSENT: chills, fever(s) Eyes: ABSENT: visual disturbances, other - Eye pain Ears: ABSENT: hearing changes, other - Ear pain Nose, Mouth, and Throat: ABSENT: headache(s), sore throat Cardiovascular: ABSENT: palpitations Respiratory: ABSENT: cough, dyspnea Gastrointestinal: PRESENT: as per HPI, abdominal pain, nausea, vomiting. ABSENT: constipation, diarrhea Genitourinary: ABSENT: dysuria, hematuria Musculoskeletal: ABSENT: joint swelling, muscle weakness Integumentary: ABSENT: pruritus, rash Neurological: ABSENT: confusion, convulsions, focal weakness, memory loss, syncope Psychiatric: ABSENT: anxiety, depression Endocrine: ABSENT: cold intolerance, heat intolerance Hematologic/Lymphatic: ABSENT: easy bleeding, easy bruising Allergic/Immunologic: ABSENT: seasonal rhinorrhea Physical Exam Vital Signs: Temp Pulse Resp BP Pulse Ox 98.1 F 86 20 93/54 L 99 06/23/20 18:58 06/23/20 18:58 06/23/20 18:58 06/23/20 18:58 06/23/20 18:58 Intake & Output 06/21/20 06/22/20 06/23/20 23:59 23:59 23:59 Weight 88 kg General appearance: PRESENT: no acute distress, cooperative Head exam: PRESENT: atraumatic, normocephalic Eye exam: PRESENT: conjunctiva pink. ABSENT: conjunctival injection, scleral icterus Ear exam: PRESENT: normal external ear exam. ABSENT: bleeding, drainage Mouth exam: PRESENT: dry mucosa, neck supple Neck exam: ABSENT: thyromegaly, tracheal deviation Respiratory exam: PRESENT: clear to auscultation fredy, symmetrical, unlabored Cardiovascular exam: PRESENT: RRR. ABSENT: clicks, gallop, rubs Pulses: PRESENT: normal radial pulses, normal dorsalis pedis pul Vascular exam: PRESENT: normal capillary refill. ABSENT: pallor GI/Abdominal exam: PRESENT: hypoactive bowel sounds, organolmegaly - Gravid united keetoowah vanita consistent with 33-week gestation, soft, tenderness - Mild epigastric tenderness to palpation Rectal exam: PRESENT: deferred Extremities exam: ABSENT: joint swelling, pedal edema Musculoskeletal exam: ABSENT: deformity, dislocation Neurological exam: PRESENT: alert, oriented to person, oriented to place, oriented to time, oriented to situation, CN II-XII grossly intact. ABSENT: motor sensory deficit Psychiatric exam: PRESENT: appropriate affect, normal mood Skin exam: PRESENT: dry, intact, warm, other - Moderate hirsutism noted. ABSENT: jaundice, rash, urticaria Results Laboratory Results: 06/23/20 18:45 06/23/20 18:45 06/23/20 06/23/20 18:45 18:45 WBC 12.2 H RBC 4.58 Hgb 10.5 L Hct 32.6 L MCV 71 L MCH 22.9 L MCHC 32.2 RDW 16.0 H Plt Count 353 Sodium 137.5 Potassium 4.0 Chloride 109 H Carbon Dioxide 20 L Anion Gap 9 BUN 9 Creatinine 0.42 L Est GFR ( Amer) > 60 Glucose 81 Calcium 8.9 Total Bilirubin 0.3 AST 15 Alkaline Phosphatase 64 Total Protein 6.9 Albumin 3.6 Assessment and Plan - Diagnosis (1) Gestational diabetes mellitus Qualifiers: Gestational diabetes mellitus control: oral hypoglycemic-controlled Trimester: third trimester Qualified Code(s): O24.415 - Gestational diabetes mellitus in , controlled by oral hypoglycemic drugs Is this a current diagnosis for this admission?: Yes (2) Nausea & vomiting Qualifiers: Vomiting type: unspecified Vomiting Intractability: intractable Qualified Code(s): R11.2 - Nausea with vomiting, unspecified Is this a current diagnosis for this admission?: Yes (3) Abdominal pain Qualifiers: Abdominal location: epigastric Qualified Code(s): R10.13 - Epigastric pain Is this a current diagnosis for this admission?: Yes (4) Qualifiers: Weeks of gestation: 33 weeks Qualified Code(s): Z3A.33 - 33 weeks gestation of Is this a current diagnosis for this admission?: Yes - Plan Summary Summary: Patient will be followed in consultation for continued care of her gestational diabetes and assistance in management of her abdominal pain and nausea with vomiting. She will be given IV fluids utilizing normal saline. Before meals and at bedtime Accu-Cheks will be obtained with sliding scale insulin for hyperglycemia and a hypoglycemic protocol in place. Nausea and vomiting will be treated with Zofran with additional use of Phenergan for persistent nausea and vomiting. Her abdominal pain will be treated with morphine sulfate 2 to 4 mg IV every 2 hours as needed for pain. A hemoglobin A1c will be obtained. Daily metabolic profiles will be obtained. - Time Time Spent with patient: 15-24 minutes Medications reviewed and adjusted accordingly: Yes Anticipated Discharge Disposition: Home, Self Care Anticipated Discharge Timeframe: within 48 hours
[2020-06-23] MEDS: INSULIN LISPRO 100 UNIT/ML 3 ML VIAL SUBCUT SCH (22:35)
[2020-06-24] MEDS: NORMAL SALINE 1000 ML 1,000 ML IV PRN ×3 (03:01→23:51)
[2020-06-24] MEDS: INSULIN LISPRO 100 UNIT/ML 3 ML VIAL SUBCUT SCH ×4 (07:44→22:04)
[2020-06-24] MEDS: ONDANSETRON HCL INJ/PF 4 MG/2 ML SDV IV PRN (09:40)
--- NOTE | 2020-06-24 13:33 | PDOC PROGRESS REPORT ---
Subjective Subjective:: Patient admitted with hyperemesis gravidarum and gestational diabetes. Per patient, both of which have occurred in the past. I do not believe the patient has only gestational diabetes, I believe she has T2DM and she will need long- term treatment for this whether she is or not. Per patient, her vomiting is nearly resolved and she is keeping fluids down. She actually asked for advancing her diet to solid food but I told her we should wait today and maybe advance it later tonight or in the morning. We are repleting electrolytes and giving her IV fluids. She needs a follow-up will be good PCP. She did have a fair amount of protein in her urine and a protein/creatinine ratio might be helpful however she is already getting a 24-hour urine collection so we can just use this instead when it is completed. Reason For Visit: NAUSEA/VOMITING Physical Exam Vital Signs: Temp Pulse Resp BP Pulse Ox 97.8 F 79 16 104/67 99 06/24/20 12:13 06/24/20 12:13 06/24/20 12:13 06/24/20 12:13 06/24/20 12:13 Intake & Output 06/23/20 06/24/20 06/25/20 06:59 06:59 06:59 Intake Total 1999 999 Balance 1999 1000 Weight 88 kg General appearance: PRESENT: no acute distress, well-developed, well-nourished Head exam: PRESENT: atraumatic, normocephalic Eye exam: PRESENT: conjunctiva pink Mouth exam: PRESENT: moist Respiratory exam: PRESENT: clear to auscultation fredy. ABSENT: rales, rhonchi, wheezes Cardiovascular exam: PRESENT: RRR. ABSENT: diastolic murmur, rubs, systolic murmur GI/Abdominal exam: PRESENT: normal bowel sounds, soft. ABSENT: distended, guarding, mass, organolmegaly, rebound, tenderness Extremities exam: ABSENT: pedal edema Neurological exam: PRESENT: alert, awake, oriented to person, oriented to place, oriented to time, oriented to situation Psychiatric exam: PRESENT: appropriate affect, normal mood Skin exam: PRESENT: dry, intact, warm Results Laboratory Results: 06/23/20 18:45 06/23/20 18:45 06/23/20 06/23/20 18:45 18:45 WBC 12.2 H RBC 4.58 Hgb 10.5 L Hct 32.6 L MCV 71 L MCH 22.9 L MCHC 32.2 RDW 16.0 H Plt Count 353 Sodium 137.5 Potassium 4.0 Chloride 109 H Carbon Dioxide 20 L Anion Gap 9 BUN 9 Creatinine 0.42 L Est GFR ( Amer) > 60 Glucose 81 Calcium 8.9 Total Bilirubin 0.3 AST 15 Alkaline Phosphatase 64 Total Protein 6.9 Albumin 3.6 Assessment and Plan - Diagnosis (1) Nausea & vomiting Qualifiers: Vomiting type: unspecified Vomiting Intractability: intractable Qualified Code(s): R11.2 - Nausea with vomiting, unspecified Is this a current diagnosis for this admission?: Yes Plan: Gradually improving with as needed Zofran and Phenergan Correct electrolyte abnormalities Daily BMP Clear liquid diet, advance very slowly as tolerated (2) Gestational diabetes mellitus Qualifiers: Gestational diabetes mellitus control: oral hypoglycemic-controlled Trimester: third trimester Qualified Code(s): O24.415 - Gestational diabetes mellitus in , controlled by oral hypoglycemic drugs Is this a current diagnosis for this admission?: Yes (3) Qualifiers: Weeks of gestation: 33 weeks Qualified Code(s): Z3A.33 - 33 weeks gestation of Is this a current diagnosis for this admission?: Yes Plan: Primary service is FOAM CASTER, medicine is only consulted (4) T2DM (type 2 diabetes mellitus) Qualifiers: Diabetes mellitus jail insulin use: without termination clerk use Diabetes mellitus complication status: without complication Qualified Code(s): E11.9 - Type 2 diabetes mellitus without complications Is this a current diagnosis for this admission?: Yes Plan: A1c is 6.5 Needs follow-up with PCP to treat T2DM long-term Sliding scale insulin, Accu-Cheks Has proteinuria, possibly due to T2DM versus plus diabetes; 24-hour urine collection in process ordered by OB - Plan Summary Summary: Patient will be followed in consultation for continued care of her gestational diabetes and assistance in management of her abdominal pain and nausea with vomiting. She will be given IV fluids utilizing normal saline. Before meals and at bedtime Accu-Cheks will be obtained with sliding scale insulin for hyperglycemia and a hypoglycemic protocol in place. Nausea and vomiting will be treated with Zofran with additional use of Phenergan for persistent nausea and vomiting. Her abdominal pain will be treated with morphine sulfate 2 to 4 mg IV every 2 hours as needed for pain. A hemoglobin A1c will be obtained. Daily metabolic profiles will be obtained. - Time Time Spent with patient: 15-24 minutes Medications reviewed and adjusted accordingly: Yes Anticipated Discharge Disposition: Home, Self Care Anticipated Discharge Timeframe: within 48 hours - Inpatient Certification Based on my medical assessment, after consideration of the patient's comorbidities, presenting symptoms, or acuity I expect that the services needed warrant INPATIENT care.: Yes I certify that my determination is in accordance with my understanding of Medicare's requirements for reasonable and necessary INPATIENT services [42 CFR 412.3e].: Yes Medical Necessity: Significant Comorbidiites Make Outpatient Treatment Too Risky, Need Close Monitoring Due to Risk of Patient Decompensation, Need For IV Fluids, Risk of Complication if Not Cared For in Hospital, Risk of Diagnosis Which Will Require Inpatient Eval/Care/Monitoring
--- NOTE | 2020-06-24 17:09 | PDOC PROGRESS REPORT ---
Subjective Progress Note for:: 06/24/20 Subjective:: Tired today. Has vomited once, small amount. She is still taking a clear diet. NO abdominal pain Reason For Visit: NAUSEA/VOMITING Physical Exam - Physical Exam Vital Signs: Temp Pulse Resp BP Pulse Ox 97.8 F 79 16 104/67 99 06/24/20 12:13 06/24/20 12:13 06/24/20 12:13 06/24/20 12:13 06/24/20 12:13 Intake & Output 06/23/20 06/24/20 06/25/20 06:59 06:59 06:59 Intake Total 1999 1000 Balance 1999 1000 Weight 88 kg General appearance: PRESENT: no acute distress, cooperative - Resting quietly Respiratory exam: PRESENT: clear to auscultation fredy Cardiovascular exam: PRESENT: RRR, +S1, +S2 GI/Abdominal exam: PRESENT: normal bowel sounds - Gravid uterus, soft Extremities exam: PRESENT: full ROM. ABSENT: calf tenderness, clubbing, pedal edema Psychiatric exam: PRESENT: appropriate affect, normal mood Skin exam: PRESENT: dry, intact, warm. ABSENT: cyanosis, rash - Obstetrical Exam External Genitalia: other - Not done Dilation (cm): 0 Effacement (%): 0 Result Laboratory Results: 06/23/20 18:45 06/23/20 18:45 06/23/20 06/23/20 18:45 18:45 WBC 12.2 H RBC 4.58 Hgb 10.5 L Hct 32.6 L MCV 71 L MCH 22.9 L MCHC 32.2 RDW 16.0 H Plt Count 353 Sodium 137.5 Potassium 4.0 Chloride 109 H Carbon Dioxide 20 L Anion Gap 9 BUN 9 Creatinine 0.42 L Est GFR ( Amer) > 60 Glucose 81 Calcium 8.9 Total Bilirubin 0.3 AST 15 Alkaline Phosphatase 64 Total Protein 6.9 Albumin 3.6 Assessment & Plan - Diagnosis (1) Gestational diabetes mellitus Qualifiers: Gestational diabetes mellitus control: oral hypoglycemic-controlled Trimester: third trimester Qualified Code(s): O24.415 - Gestational diabetes mellitus in , controlled by oral hypoglycemic drugs Is this a current diagnosis for this admission?: Yes (2) Abdominal pain Qualifiers: Abdominal location: epigastric Qualified Code(s): R10.13 - Epigastric pain Is this a current diagnosis for this admission?: Yes (3) Nausea & vomiting Qualifiers: Vomiting type: unspecified Vomiting Intractability: intractable Qualified Code(s): R11.2 - Nausea with vomiting, unspecified Is this a current diagnosis for this admission?: Yes - Time Time Spent with patient: Less than 15 minutes Medications reviewed and adjusted accordingly: Yes Anticipated discharge: Home Anticipated DC Timeframe: within 48 hours Disposition: stable, elevated glucose with poor control - Plan Summary Plan Summary: 34 yo at 33.1 wks EGA with nausea/vomiting, inability to tolerate PO and gestational diabetes. -VSS -Exam negative. No RUQ pain, rebound or guarding -Glucoses are elevated with fasting today 107 and post prandials in the 130s. This is with her taking clear liquid diet presently. I feel she likely will need insulin but will plan to discuss with MFM as they have been managing glucoses and she has been on Glyburide 2.5 mg each evening. A1c on this admission was 6.5 -Vomited once today. Continue IVFs for now and antiemetics PRN. Continue clears until tomorrow per hospitalist recommendations - NST daily
[2020-06-24 22:17] LABS: URINE PROTEIN 10.9 mg/dL (<12)
[2020-06-24 22:21] LABS: 24 HOUR URINE PROTEIN RESULT 251 mg/day (42-225)
[2020-06-25 05:56] LABS: APPEARANCE,URINE CLEAR; BILIRUBIN,URINE NEGATIVE (NEGATIVE); COLOR,URINE YELLOW; GLUCOSE, URINE >=500 mg/dL (NEGATIVE); KETONES,URINE NEGATIVE (NEGATIVE); PROTEIN,URINE NEGATIVE (NEGATIVE); URINE SPECIFIC GRAVITY 1.017; UROBILINOGEN,URINE NEGATIVE mg/dL (<2.0)
[2020-06-25 08:11] LABS: ANION GAP 8 (5-19); BLOOD UREA NITROGEN 7 mg/dL (7-20); CALCIUM 8.4 mg/dL (8.4-10.2); CARBON DIOXIDE 18 mmol/L (22-30); CHLORIDE 111 mmol/L (98-107); GLUCOSE 112 mg/dL (75-110); POTASSIUM 3.8 mmol/L (3.6-5.0)
[2020-06-25] MEDS: INSULIN LISPRO 100 UNIT/ML 3 ML VIAL SUBCUT SCH ×4 (08:21→21:28)
[2020-06-25] MEDS ORDERED: GLYBURIDE 2.5 MG TABLET PO SCH (08:30)
--- NOTE | 2020-06-25 08:30 | PDOC PROGRESS REPORT ---
Subjective Progress Note for:: 06/25/20 Subjective:: Tired today. No vomiting. She is still taking a clear diet. NO abdominal pain Reason For Visit: NAUSEA/VOMITING Physical Exam - Physical Exam Vital Signs: Temp Pulse Resp BP Pulse Ox 98.3 F 73 18 112/52 L 100 06/25/20 08:00 06/25/20 08:00 06/25/20 08:00 06/25/20 08:00 06/25/20 08:00 Intake & Output 06/24/20 06/25/20 06/26/20 06:59 06:59 06:59 Intake Total 1999 1999 Balance 1999 1999 Weight 88 kg General appearance: PRESENT: no acute distress, cooperative Respiratory exam: PRESENT: clear to auscultation fredy Cardiovascular exam: PRESENT: RRR, +S1, +S2 GI/Abdominal exam: PRESENT: normal bowel sounds, soft Extremities exam: PRESENT: full ROM. ABSENT: calf tenderness, clubbing, pedal edema Psychiatric exam: PRESENT: appropriate affect, normal mood. ABSENT: homicidal ideation, suicidal ideation - Obstetrical Exam External Genitalia: other - Not done Result Laboratory Results: 06/23/20 18:45 06/25/20 07:34 06/24/20 06/25/20 06/25/20 21:16 05:32 07:34 Sodium 136.9 L Potassium 3.8 Chloride 111 H Carbon Dioxide 18 L Anion Gap 8 BUN 7 Creatinine 0.37 L Est GFR ( Amer) > 60 Glucose 112 H Calcium 8.4 Urine Color YELLOW Urine Appearance CLEAR Urine pH 6.0 Ur Specific [place] 1.017 Urine Protein NEGATIVE Urine Glucose (UA) >=500 H Urine Ketones NEGATIVE Urine Blood NEGATIVE Urine RBC (Auto) 1 Ur 24 Hour Volume 2300 Ur Total Protein 24 Hr 251 H Assessment & Plan - Diagnosis (1) Gestational diabetes mellitus Qualifiers: Gestational diabetes mellitus control: oral hypoglycemic-controlled Trimester: third trimester Qualified Code(s): O24.415 - Gestational diabetes mellitus in , controlled by oral hypoglycemic drugs Is this a current diagnosis for this admission?: Yes (2) Abdominal pain Qualifiers: Abdominal location: epigastric Qualified Code(s): R10.13 - Epigastric pain Is this a current diagnosis for this admission?: Yes (3) Nausea & vomiting Qualifiers: Vomiting type: unspecified Vomiting Intractability: intractable Qualified Code(s): R11.2 - Nausea with vomiting, unspecified Is this a current diagnosis for this admission?: Yes - Time Time Spent with patient: 15-24 minutes Anticipated discharge: Home Anticipated DC Timeframe: within 24 hours - Plan Summary Plan Summary: 34 yo at 33.2 wks EGA admitted with nausea/vomiting, inability to tolerate PO and gestational diabetes. -VSS -Exam negative. No RUQ pain, rebound or guarding -Glucoses were elevated with fasting and post prandials yesterday, Today a diabetic diet bis ordered. I feel she likely will need insulin but let MFM decide this as they have been managing glucoses and she has been on Glyburide 2.5 mg each evening. SHE SEES MFM TOMORROW. A1c on this admission was 6.5 -If no VomitING today will plan on Discharge after breakfast. February d/c IVFs - NST daily
--- NOTE | 2020-06-25 10:45 | PDOC PROGRESS REPORT ---
Subjective Progress Note for:: 06/25/20 Subjective:: Patient is seen on morning rounds. She is resting in bed, comfortably, on room air. She reports she is feeling well, tolerated diet this morning with abd discomfort, n/v. Anticipates that she is being discharged this afternoon. She tells me she has an appointment with [facility] tomorrow. She denies fever, chills, chest pain, palpitations, dyspnea, cough, abd pain, n/v/d. She has no questions or concerns at this time. No concerns per nursing. Reason For Visit: NAUSEA/VOMITING Physical Exam Vital Signs: Temp Pulse Resp BP Pulse Ox 98.3 F 73 18 112/52 L 100 06/25/20 08:31 06/25/20 08:00 06/25/20 08:00 06/25/20 08:00 06/25/20 08:00 Intake & Output 06/24/20 06/25/20 06/26/20 06:59 06:59 06:59 Intake Total 1999 Balance 1999 1999 120 Weight 88 kg General appearance: PRESENT: no acute distress, cooperative, well-developed, well-nourished - overweight Head exam: PRESENT: atraumatic, normocephalic Eye exam: PRESENT: conjunctiva pink, EOMI, PERRLA. ABSENT: scleral icterus Mouth exam: PRESENT: moist, tongue midline Respiratory exam: PRESENT: clear to auscultation fredy, symmetrical, unlabored. A BSENT: rales, rhonchi, wheezes Cardiovascular exam: PRESENT: RRR. ABSENT: diastolic murmur, rubs, systolic murmur Vascular exam: PRESENT: normal capillary refill Extremities exam: PRESENT: full ROM. ABSENT: calf tenderness, clubbing, pedal edema Musculoskeletal exam: PRESENT: ambulatory Neurological exam: PRESENT: alert, awake, oriented to person, oriented to place, oriented to time, oriented to situation, CN II-XII grossly intact. ABSENT: motor sensory deficit Psychiatric exam: PRESENT: appropriate affect, normal mood. ABSENT: homicidal ideation, suicidal ideation Skin exam: PRESENT: dry, intact, warm. ABSENT: cyanosis, rash Results Laboratory Results: 06/23/20 18:45 06/25/20 07:34 06/24/20 06/25/20 06/25/20 21:16 05:32 07:34 Sodium 136.9 L Potassium 3.8 Chloride 111 H Carbon Dioxide 18 L Anion Gap 8 BUN 7 Creatinine 0.37 L Est GFR ( Amer) > 60 Glucose 112 H Calcium 8.4 Urine Color YELLOW Urine Appearance CLEAR Urine pH 6.0 Ur Specific [place] 1.017 Urine Protein NEGATIVE Urine Glucose (UA) >=500 H Urine Ketones NEGATIVE Urine Blood NEGATIVE Urine RBC (Auto) 1 Ur 24 Hour Volume 2300 Ur Total Protein 24 Hr 251 H Assessment and Plan - Diagnosis (1) T2DM (type 2 diabetes mellitus) Qualifiers: Diabetes mellitus rn long term care insulin use: without rn long term care use Diabetes mellitus complication status: without complication Qualified Code(s): E11.9 - Type 2 diabetes mellitus without complications Is this a current diagnosis for this admission?: Yes Plan: A1c is 6.5 Needs follow-up with PCP to treat T2DM long-term Sliding scale insulin, Accu-Cheks Previously on Glyburide 2.5 mg daily. Discussed w/ Dr. Silva; agree w/ increase to twice daily. steeple jack and nurse informatics educator are consulted. (2) Nausea & vomiting Qualifiers: Vomiting type: unspecified Vomiting Intractability: intractable Qualified Code(s): R11.2 - Nausea with vomiting, unspecified Is this a current diagnosis for this admission?: Yes Plan: Improved; patient reports she tolerated breakfast without difficulty. Has been advanced to CC4 diet. Continue as needed Zofran and Phenergan Follow up chemistry. (3) Qualifiers: Weeks of gestation: 33 weeks Qualified Code(s): Z3A.33 - 33 weeks gestation of Is this a current diagnosis for this admission?: Yes Plan: Primary service is DIAMOND SORTER, medicine is only consulted - Plan Summary Summary: Patient is followed by [facility]; has appointment scheduled for tomorrow. Discussed w/ Dr. Silva, patient will need to reschedule as discharge is not anticipated for today. Left message for provider with nurse, Beverly, regarding A1C 6.5% and glucose 105- 139. Patient is advised to continue her current dose of of Glyburide 2.5mg qHS and to closely follow a consistent carb diet with frequent glucose monitoring. - Time Time Spent with patient: 25-34 minutes Medications reviewed and adjusted accordingly: Yes Anticipated Discharge Disposition: Home, Self Care Anticipated Discharge Timeframe: discretion of OBGYN service
[2020-06-25] MEDS: ONDANSETRON HCL INJ/PF 4 MG/2 ML SDV IV PRN (11:18)
--- NOTE | 2020-06-25 12:00 | PDOC PROGRESS REPORT ---
Subjective Progress Note for:: 06/25/20 Subjective:: went to see patient in anticipation of discharge however, pt is lying in bed indicating that she is severely nauseous and just vomited. Per RN there is 25 cc of liquid in emesis bag. The patient indicates that if her blood sugar goes up that she gets sick and becomes nauseous. She states that she just ate food for the first time this hospitalization this AM and now she is vomiting. Her last BS 2 hr PP was 193. She is taking the 2.5 mg of glyburide in the evening. She's been given zofran already about 30 min ago per the RN. Reason For Visit: NAUSEA/VOMITING Physical Exam - Physical Exam Vital Signs: Temp Pulse Resp BP Pulse Ox 97.8 F 101 H 20 125/77 97 06/25/20 11:16 06/25/20 11:16 06/25/20 11:16 06/25/20 11:16 06/25/20 11:16 Intake & Output 06/24/20 06/25/20 06/26/20 06:59 06:59 06:59 Intake Total 1999 1999 120 Balance 1999 1999 120 Weight 88 kg General appearance: PRESENT: cooperative, mild distress, well-nourished - no CVA tenderness. Pt c/o pain in left upper quadrant worse on palpation - Obstetrical Exam External Genitalia: other - Not done Result Laboratory Results: 06/23/20 18:45 06/25/20 07:34 06/24/20 06/25/20 06/25/20 21:16 05:32 07:34 Sodium 136.9 L Potassium 3.8 Chloride 111 H Carbon Dioxide 18 L Anion Gap 8 BUN 7 Creatinine 0.37 L Est GFR ( Amer) > 60 Glucose 112 H Calcium 8.4 Urine Color YELLOW Urine Appearance CLEAR Urine pH 6.0 Ur Specific [place] 1.017 Urine Protein NEGATIVE Urine Glucose (UA) >=500 H Urine Ketones NEGATIVE Urine Blood NEGATIVE Urine RBC (Auto) 1 Ur 24 Hour Volume 2300 Ur Total Protein 24 Hr 251 H Assessment & Plan - Diagnosis (1) Gestational diabetes mellitus Qualifiers: Gestational diabetes mellitus control: oral hypoglycemic-controlled Trimester: third trimester Qualified Code(s): O24.415 - Gestational diabetes mellitus in , controlled by oral hypoglycemic drugs Is this a current diagnosis for this admission?: Yes (2) T2DM (type 2 diabetes mellitus) Qualifiers: Diabetes mellitus watermelon harvesting supervisor insulin use: without fci use Diabetes mellitus complication status: without complication Qualified Code(s): E11.9 - Type 2 diabetes mellitus without complications Is this a current diagnosis for this admission?: Yes (3) Abdominal pain Qualifiers: Abdominal location: epigastric Qualified Code(s): R10.13 - Epigastric pain Is this a current diagnosis for this admission?: Yes (4) Nausea & vomiting Qualifiers: Vomiting type: unspecified Vomiting Intractability: intractable Qualified Code(s): R11.2 - Nausea with vomiting, unspecified Is this a current diagnosis for this admission?: Yes (5) Polycystic ovarian syndrome Is this a current diagnosis for this admission?: Yes (6) Qualifiers: Weeks of gestation: 33 weeks Qualified Code(s): Z3A.33 - 33 weeks gestation of Is this a current diagnosis for this admission?: Yes - Time Time Spent with patient: Less than 15 minutes Medications reviewed and adjusted accordingly: Yes Anticipated discharge: Home Anticipated DC Timeframe: within 24 hours - Inpatient Certification Based on my medical assessment, after consideration of the patient's comorbidities, presenting symptoms, or acuity I expect that the services needed warrant INPATIENT care.: Yes I certify that my determination is in accordance with my understanding of Medicare's requirements for reasonable and necessary INPATIENT services [42 CFR 412.3e].: Yes Medical Necessity: Failure to Improve With Outpatient Therapy, Need Close Monitoring Due to Risk of Patient Decompensation - Plan Summary Plan Summary: I would like to have patient feeling better so that she may see MFM tomorrow but currently she doesn't seem to be able to discharge. I am adding some labs to check Amylase/lipase and CMP to assess electrolyte balance today. will add glyberide 2.5 mg in AM to try to get better daytime control of sugars. hopefully will be able to discharge in time for MFM appt but if need be will reschedule that appt.
[2020-06-25 14:05] LABS: ALKALINE PHOSPHATASE 51 U/L (38-126); AMYLASE 54 U/L (30-110); ANION GAP 8 (5-19); ASPARTATE AMINO TRANSFERASE 17 U/L (14-36); BILIRUBIN,DIRECT 0.2 mg/dL (0.0-0.4); BILIRUBIN,TOTAL 0.3 mg/dL (0.2-1.3); BLOOD UREA NITROGEN 7 mg/dL (7-20); CALCIUM 8.7 mg/dL (8.4-10.2); CARBON DIOXIDE 19 mmol/L (22-30); CHLORIDE 109 mmol/L (98-107); GLUCOSE 137 mg/dL (75-110); POTASSIUM 3.8 mmol/L (3.6-5.0); TOTAL PROTEIN 5.7 g/dL (6.3-8.2)
[2020-06-25] MEDS: GLYBURIDE 2.5 MG TABLET PO SCH (16:41)
[2020-06-25] MEDS: PANTOPRAZOLE SODIUM 40 MG VIAL IV SCH (17:46)
[2020-06-25] MEDS: FAMOTIDINE INJ/PF 20 MG/2 ML SDV IV SCH (17:47)
[2020-06-25] MEDS: ACETAMINOPHEN 325 MG TABLET PO PRN ×2 (17:47→22:15)
[2020-06-25] MEDS: NORMAL SALINE 1000 ML 1,000 ML IV PRN (22:20)
[2020-06-26] MEDS: PANTOPRAZOLE SODIUM 40 MG VIAL IV SCH (06:24)
[2020-06-26] MEDS: NORMAL SALINE 1000 ML 1,000 ML IV PRN (06:25)
[2020-06-26] MEDS: FAMOTIDINE INJ/PF 20 MG/2 ML SDV IV SCH (06:25)
[2020-06-26 06:38] LABS: ANION GAP 7 (5-19); BLOOD UREA NITROGEN 7 mg/dL (7-20); CALCIUM 8.1 mg/dL (8.4-10.2); CARBON DIOXIDE 19 mmol/L (22-30); CHLORIDE 111 mmol/L (98-107); GLUCOSE 158 mg/dL (75-110); POTASSIUM 3.5 mmol/L (3.6-5.0)
[2020-06-26] MEDS: INSULIN LISPRO 100 UNIT/ML 3 ML VIAL SUBCUT SCH (09:03)
[2020-06-26] MEDS: GLYBURIDE 2.5 MG TABLET PO SCH (09:12)
[2020-06-26] MEDS: ACETAMINOPHEN 325 MG TABLET PO PRN (09:15)
[2020-06-26 11:59] VITALS: BP 114/68
--- NOTE | 2020-06-26 13:00 | PDOC DISCHARGE SUMMARY ---
Impression - Admit/DC Date/PCP Admission Date/Primary Care Provider: 06/23/20 17:38 JAZMIN VELASQUEZ MD Discharge Date: 06/26/20 - Discharge Diagnosis (1) Gestational diabetes mellitus Is this a current diagnosis for this admission?: Yes (2) Abdominal pain Is this a current diagnosis for this admission?: Yes (3) Nausea & vomiting Is this a current diagnosis for this admission?: Yes - Assessment Summary: Patient is followed by [facility]; has appointment sche duled for tomorrow. Discussed w/ Dr. Silva, patient will need to reschedule as discharge is not anticipated for today. Left message for provider with nurse, Beverly, regarding A1C 6.5% and glucose 105- 139. Patient is advised to continue her current dose of of Glyburide 2.5mg qHS and to closely follow a consistent carb diet with frequent glucose monitoring. - Additional Information Resuscitation Status: Full Code Discharge Diet: As Tolerated, Diabetic Discharge Activity: Activity As Tolerated Referrals: JAZMIN VELASQUEZ MD [Primary Care Provider] - Prescriptions: Glyburide [Diabeta 2.5 mg Tablet] 2.5 mg PO BIDBS 30 Days #60 tablet Famotidine [Pepcid] 20 mg PO BID 30 Days #60 tablet Pantoprazole Sodium [Protonix] 40 mg PO DAILY 30 Days #30 tablet. Home Medications: Famotidine [Pepcid] 20 mg PO BID 30 Days #60 tablet 06/26/20 Glyburide [Diabeta 2.5 mg Tablet] 2.5 mg PO BIDBS 30 Days #60 tablet 06/26/20 Pantoprazole Sodium [Protonix] 40 mg PO DAILY 30 Days #30 tablet. 06/26/20 Additional Information: Continue diabetic diet with three small meals and day and a snack in between, Check glucose fasting each morning and two hours after each meal. Record blood sugars and call to [facility] as directed. Continue glyburide Now at 2.5 mg BID> Please drink plenty of water and also walk daily for exercise. A 15 minute walk after meals will help manage your glucose levels. Keep follow up appt at the office and with MF Hg A1c this visit was 6.5 Fasting blood glucose this am was 160. She was given 2.5 mg glyburide and this brings her daily dose to Glyburide 2.5 mg twice a day. Her glucoses were better controled earlier in the hospitalization with fasting at 107 and post prandial in the 120-130s on clear liquid diet. Once on a diabetic diet, her glucoses appear consistently increasing. No vomiting for [address] Silva noted increase in glucoses yesterday and increased glyburide to BID dosing. I discussed switching to a long acting insulin injection BID with coverage at meals if needed but patient reports she is seeing MFM today and plans to discuss this with her. History of Present Illiness History of Present Illness: YOON GILLILAND is a 34 year old female Physical Exam - Physical Exam Vital Signs: Temp Pulse Resp BP Pulse Ox 98.2 F 78 16 114/68 99 06/26/20 11:58 06/26/20 11:58 06/26/20 11:58 06/26/20 11:58 06/26/20 11:58 Intake & Output 06/25/20 06/26/20 06/27/20 06:59 06:59 06:59 Intake Total 1999 2640 Balance 1999 2640 - Obstetrical Exam External Genitalia: other - Not done Results Laboratory Results: WBC 12.2 10^3/uL (4.0-10.5) H 06/23/20 18:45 RBC 4.58 10^6/uL (3.72-5.28) 06/23/20 18:45 Hgb 10.5 g/dL (12.0-15.5) L 06/23/20 18:45 Hct 32.6 % (36.0-47.0) L 06/23/20 18:45 MCV 71 fl (80-97) L 06/23/20 18:45 MCH 22.9 pg (27.0-33.4) L 06/23/20 18:45 MCHC 32.2 g/dL (32.0-36.0) 06/23/20 18:45 RDW 16.0 % (11.5-14.0) H 06/23/20 18:45 Plt Count 353 10^3/uL (150-450) 06/23/20 18:45 Sodium 137.4 mmol/L (137-145) 06/26/20 06:12 Potassium 3.5 mmol/L (3.6-5.0) L 06/26/20 06:12 Chloride 111 mmol/L (98-107) H 06/26/20 06:12 Carbon Dioxide 19 mmol/L (22-30) L 06/26/20 06:12 Anion Gap 7 (5-19) 06/26/20 06:12 BUN 7 mg/dL (7-20) 06/26/20 06:12 Creatinine 0.42 mg/dL (0.52-1.25) L 06/26/20 06:12 Est GFR ( Amer) > 60 (>60) 06/26/20 06:12 Est GFR (MDRD) Non-Af > 60 (>60) 06/26/20 06:12 Glucose 158 mg/dL (75-110) H 06/26/20 06:12 POC Glucose 160 mg/dL (70-110) H 06/26/20 11:42 Hemoglobin A1c % 6.5 % (4.7-6.0) H 06/23/20 18:45 Calcium 8.1 mg/dL (8.4-10.2) L 06/26/20 06:12 Total Bilirubin 0.3 mg/dL (0.2-1.3) 06/25/20 13:07 Direct Bilirubin 0.2 mg/dL (0.0-0.4) 06/25/20 13:07 Neonat Total Bilirubin Not Reportable 06/25/20 13:07 Neonat Direct Bilirubin Not Reportable 06/25/20 13:07 Neonat Indirect Bili Not Reportable 06/25/20 13:07 AST 17 U/L (14-36) 06/25/20 13:07 ALT 9 U/L (<35) 06/25/20 13:07 Alkaline Phosphatase 51 U/L (38-126) 06/25/20 13:07 Total Protein 5.7 g/dL (6.3-8.2) L 06/25/20 13:07 Albumin 3.0 g/dL (3.5-5.0) L 06/25/20 13:07 Amylase 54 U/L (30-110) 06/25/20 13:07 Lipase 85.8 U/L (23-300) 06/25/20 13:07 Urine Color YELLOW 06/25/20 05:32 Urine Appearance CLEAR 06/25/20 05:32 Urine pH 6.0 (5.0-9.0) 06/25/20 05:32 Ur Specific [place] 1.017 06/25/20 05:32 Urine Protein NEGATIVE mg/dL (NEGATIVE) 06/25/20 05:32 Urine Glucose (UA) >=500 mg/dL (NEGATIVE) H 06/25/20 05:32 Urine Ketones NEGATIVE mg/dL (NEGATIVE) 06/25/20 05:32 Urine Blood NEGATIVE (NEGATIVE) 06/25/20 05:32 Urine Nitrite (Reflex) NEGATIVE (NEGATIVE) 06/25/20 05:32 Urine Bilirubin NEGATIVE (NEGATIVE) 06/25/20 05:32 Urine Urobilinogen NEGATIVE mg/dL (<2.0) 06/25/20 05:32 Leukocyte Esterase Rfl NEGATIVE (NEGATIVE) 06/25/20 05:32 Urine RBC (Auto) 1 /HPF 06/25/20 05:32 Urine WBC (Reflex) < 1 /HPF 06/25/20 05:32 Squamous Epi Cells Auto <1 /HPF 06/25/20 05:32 Urine Mucus (Auto) RARE /LPF 06/25/20 05:32 Ur 24 Hour Volume 2300 mL 06/24/20 21:16 Ur Total Protein 24 Hr 251 mg/day (42-225) H 06/24/20 21:16 Urine Total Protein 10.9 mg/dL (<12) 06/24/20 21:16 Urine Ascorbic Acid NEGATIVE (NEGATIVE) 06/25/20 05:32 Stroke Is this a Stroke Patient?: No Acute Heart Failure - Is this a Heart Failure Patient?: No
== END 2020-06-26 13:10 | disposition home or self-care (01) | DRG 833 ==
LOC: LC 16:38 → LR 17:38 → OBSVTOIN 17:49 → 2S 18:50
PROVIDERS: ADMIT Obstetrics & Gynecology; ATTEND Obstetrics & Gynecology
DX: O21.0 Mild hyperemesis gravidarum (principal); O99.283 Endocrine, nutritional and metabolic diseases complicating pregnancy, third trimester; E28.2 Polycystic ovarian syndrome; O24.415 Gestational diabetes mellitus in pregnancy, controlled by oral hypoglycemic drugs; Z3A.32 32 weeks gestation of pregnancy
CPT/HCPCS: 36415; 59025; 80048; 80053; 81001; 82150; 82962; 83036; 83498; 83690; 84156; 85027; 87070; C9113; G0378; G0379; J1815; J2405; J2550; J3490; J7030; S0028

== ENCOUNTER 2020-07-05 21:22 | Outpatient (CLI) | payer BC ==
[2020-07-05] MEDS ORDERED: HYDROXYZINE PAMOATE 50 MG CAPSULE ONE (22:51)
[2020-07-05 23:06] LABS: APPEARANCE,URINE CLEAR; BILIRUBIN,URINE NEGATIVE (NEGATIVE); COLOR,URINE YELLOW; GLUCOSE, URINE >=500 mg/dL (NEGATIVE); KETONES,URINE TRACE mg/dL (NEGATIVE); LEUKOCYTE ESTERASE,URINE TRACE (NEGATIVE); NITRITE,URINE NEGATIVE (NEGATIVE); PROTEIN,URINE NEGATIVE (NEGATIVE); URINE SPECIFIC GRAVITY 1.023; UROBILINOGEN,URINE NEGATIVE mg/dL (<2.0)
[2020-07-05] MEDS ORDERED: RINGERS SOLUTION,LACTATED 1,000 ML IV ONE (23:10)
[2020-07-05] MEDS ORDERED: HYDROXYZINE PAMOATE 50 MG CAPSULE PO ONE (23:10)
[2020-07-05 23:21] LABS: URINE AMPHETAMINES SCREEN NEGATIVE; URINE BARBITURATES SCREEN NEGATIVE; URINE BENZODIAZEPINES SCREEN NEGATIVE; URINE COCAINE SCREEN NEGATIVE; URINE MARIJUANA (THC) SCREEN NEGATIVE; URINE METHADONE SCREEN NEGATIVE; URINE PHENCYCLIDINE SCREEN NEGATIVE
--- NOTE | 2020-07-06 00:26 | Non Stress Test Report ---
Non Stress Test Datetime Report Generated by CPN: 07/06/2020 00:26 DEMOGRAPHIC EGA NST: 34.1 INDICATION Indication for Study (NST) Other: Labor Check MONITORING Monitor Explained: Monitor Explained; Test Explained; Patient Verbalized Understanding Time on Monitor: 07/05/2020 21:44 Time off Monitor: 07/05/2020 23:42 NST INTERVENTIONS NST Interventions: None Physician Notified NST: Dr Ricardo BABY A: [id number] BABY A Movement : Present Contraction Frequency : occasional FHR Baseline : 145 Accelerations : 15X15 Decelerations : None Variability : Moderate 6-25bpm NST Review: Questionable if Meets Criteria for Reactive NST NST Review and Verified By : Barry Abraham RN NST Results: Reactive NST REPORT Report Trigger: Send Report
== END 2020-07-05 23:52 | disposition home or self-care (01) ==
LOC: LC 21:22
PROVIDERS: ATTEND Obstetrics & Gynecology
DX: O47.03 False labor before 37 completed weeks of gestation, third trimester (principal); O24.419 Gestational diabetes mellitus in pregnancy, unspecified control; Z3A.34 34 weeks gestation of pregnancy
CPT/HCPCS: 59025; 80307; 81001

== ENCOUNTER → 2020-07-23 | Outpatient (CLI) | payer BC, MEDICAID ==
[2020-07-23 18:02] LABS: ABSOLUTE EOSINOPHILS # (AUTO) 0.1 10^3/uL (0.0-0.6); ABSOLUTE LYMPHOCYTES (AUTO) 1.9 10^3/uL (0.5-4.7); ABSOLUTE MONOCYTES (AUTO) 0.7 10^3/uL (0.1-1.4); ABSOLUTE NEUT (AUTO) 8.9 10^3/uL (1.7-8.2); BASOPHILS % (AUTO) 0.1 % (0-2); EOSINOPHILS % (AUTO) 0.5 % (0-6); HEMATOCRIT 32.4 % (36.0-47.0); HEMOGLOBIN 10.6 g/dL (12.0-15.5); MEAN CORPUSCULAR HEMOGLOBIN 22.5 pg (27.0-33.4); MEAN CORPUSCULAR HGB CONC 32.5 g/dL (32.0-36.0); MEAN CORPUSCULAR VOLUME 69 fl (80-97); MONOCYTES % (AUTO) 6.2 % (3-13); PLATELET COUNT 356 10^3/uL (150-450); RED BLOOD COUNT 4.68 10^6/uL (3.72-5.28); RED CELL DISTRIBUTION WIDTH 16.8 % (11.5-14.0); SEGMENTED NEUTROPHILS % (AUTO) 77.2 % (42-78); TOTAL CELLS COUNTED % (AUTO) 100 %; WHITE BLOOD COUNT 11.6 10^3/uL (4.0-10.5)
[2020-07-23 18:16] LABS: URINE CREATININE 289.7 mg/dL (16-327); URINE PROTEIN 12.9 mg/dL (<12)
[2020-07-23 18:31] LABS: ALBUMIN 3.7 g/dL (3.5-5.0); ALKALINE PHOSPHATASE 87 U/L (38-126); ANION GAP 13 (5-19); ASPARTATE AMINO TRANSFERASE 16 U/L (14-36); BILIRUBIN,DIRECT 0.3 mg/dL (0.0-0.4); BILIRUBIN,TOTAL 0.4 mg/dL (0.2-1.3); BLOOD UREA NITROGEN 11 mg/dL (7-20); CALCIUM 9.6 mg/dL (8.4-10.2); CARBON DIOXIDE 18 mmol/L (22-30); CHLORIDE 105 mmol/L (98-107); GLUCOSE 123 mg/dL (75-110); POTASSIUM 4.3 mmol/L (3.6-5.0); URIC ACID 3.4 mg/dL (2.5-6.2)
== END ==
LOC: OD 16:34
PROVIDERS: ATTEND Obstetrics & Gynecology
DX: O13.9 Gestational [pregnancy-induced] hypertension without significant proteinuria, unspecified trimester (principal)
CPT/HCPCS: 36415; 80053; 82570; 83615; 84156; 84550; 85025; 87491; 87591

== ENCOUNTER 2020-08-01 05:20 | Inpatient (IN) | payer BC, MEDICAID ==
[2020-07-29 11:41] LABS: ABSOLUTE EOSINOPHILS # (AUTO) 0.1 10^3/uL (0.0-0.6); ABSOLUTE LYMPHOCYTES (AUTO) 2.6 10^3/uL (0.5-4.7); ABSOLUTE MONOCYTES (AUTO) 0.7 10^3/uL (0.1-1.4); ABSOLUTE NEUT (AUTO) 7.3 10^3/uL (1.7-8.2); BASOPHILS % (AUTO) 0.2 % (0-2); EOSINOPHILS % (AUTO) 0.8 % (0-6); HEMATOCRIT 31.9 % (36.0-47.0); HEMOGLOBIN 10.6 g/dL (12.0-15.5); LYMPHOCYTES % (AUTO) 23.9 % (13-45); MEAN CORPUSCULAR HEMOGLOBIN 22.8 pg (27.0-33.4); MEAN CORPUSCULAR HGB CONC 33.2 g/dL (32.0-36.0); MEAN CORPUSCULAR VOLUME 69 fl (80-97); MONOCYTES % (AUTO) 6.9 % (3-13); PLATELET COUNT 387 10^3/uL (150-450); RED BLOOD COUNT 4.63 10^6/uL (3.72-5.28); RED CELL DISTRIBUTION WIDTH 17.2 % (11.5-14.0); SEGMENTED NEUTROPHILS % (AUTO) 68.2 % (42-78); TOTAL CELLS COUNTED % (AUTO) 100 %; WHITE BLOOD COUNT 10.7 10^3/uL (4.0-10.5)
[2020-07-29 11:46] LABS: APPEARANCE,URINE SLIGHTLY-CLOUDY; BILIRUBIN,URINE NEGATIVE (NEGATIVE); COLOR,URINE YELLOW; GLUCOSE, URINE 50 mg/dL (NEGATIVE); KETONES,URINE NEGATIVE (NEGATIVE); LEUKOCYTE ESTERASE,URINE NEGATIVE (NEGATIVE); NITRITE,URINE NEGATIVE (NEGATIVE); PROTEIN,URINE 30 mg/dL (NEGATIVE); URINE SPECIFIC GRAVITY 1.025; UROBILINOGEN,URINE NEGATIVE mg/dL (<2.0)
[2020-07-29 12:24] LABS: URINE AMPHETAMINES SCREEN NEGATIVE; URINE BARBITURATES SCREEN NEGATIVE; URINE BENZODIAZEPINES SCREEN NEGATIVE; URINE COCAINE SCREEN NEGATIVE; URINE MARIJUANA (THC) SCREEN NEGATIVE; URINE METHADONE SCREEN NEGATIVE; URINE PHENCYCLIDINE SCREEN NEGATIVE
[2020-08-01] MEDS ORDERED: RINGERS SOLUTION,LACTATED 1,000 ML IV PRN ×3 (05:41→11:36)
--- NOTE | 2020-08-01 06:14 | Non Stress Test Report ---
Non Stress Test Datetime Report Generated by CPN: 08/01/2020 06:13 DEMOGRAPHIC EGA NST: 38.0 INDICATION Indication for Study (NST) Other: Scheduled C/S VITAL SIGNS Temperature - NST: 98.0 Pulse - NST: 97 RESP - NST: 18 NBPSYS NST: 104 NBPDIA NST: 72 MONITORING Monitor Explained: Monitor Explained; Test Explained; Patient Verbalized Understanding Time on Monitor: 08/01/2020 05:44 Time off Monitor: 08/01/2020 06:09 NST Duration: 25 NST INTERVENTIONS NST Interventions: Reposition Patient Physician Notified NST: Dr. Seaman BABY A: [id number] BABY A Movement : Present Contraction Frequency : x2 FHR Baseline : 135 Accelerations : 15X15 Decelerations : None Variability : Moderate 6-25bpm NST Review: Meets Criteria for Reactive NST NST Review and Verified By : REJI Call Results: Reactive NST REPORT Report Trigger: Send Report
[2020-08-01] MEDS ORDERED: CEFAZOLIN 2 GM/D5W RTU 2 GM/50 ML RTUPB IV ONE (06:27)
[2020-08-01] MEDS ORDERED: CITRIC ACID/SODIUM CITRATE ORAL SOLN 15 ML UDCUP ONE (06:27)
[2020-08-01] MEDS ORDERED: CEFAZOLIN SODIUM 2 GM in DEXTROSE 5%-WATER 50 ML IV PRN (07:00)
[2020-08-01] MEDS ORDERED: EPHEDRINE SULFATE INJ 50 MG/1 ML AMPULE ONE (07:21)
[2020-08-01] MEDS ORDERED: FENTANYL CITRATE INJ/PF 100 MCG/2 ML AMPUL ONE (07:21)
[2020-08-01] MEDS ORDERED: PHENYLEPHRINE HCL INJ/PF 10 MG/1 ML SDV ONE (07:21)
[2020-08-01] MEDS ORDERED: MIDAZOLAM 2 MG/2 ML INJ ONE (07:21)
[2020-08-01] MEDS ORDERED: KETOROLAC TROMETHAMINE INJ/PF 30 MG/1 ML SDV ONE (07:21)
[2020-08-01] MEDS ORDERED: OXYTOCIN 10 UNIT/ML VIAL ONE (07:21)
[2020-08-01] MEDS ORDERED: ACETAMINOPHEN 1,000 MG/100 ML RTUPB IV ONE (07:22)
[2020-08-01] MEDS ORDERED: ONDANSETRON HCL INJ/PF 4 MG/2 ML SDV ONE (07:22)
[2020-08-01] MEDS ORDERED: OXYTOCIN/0.9 % SODIUM CHLORIDE 30 UNIT/500 ML RTUINJ ONE (07:22)
[2020-08-01] MEDS ORDERED: PROMETHAZINE HCL INJ 25 MG/1 ML VIAL IV PRN ×3 (09:17→11:36)
[2020-08-01] MEDS ORDERED: FENTANYL CITRATE INJ/PF 100 MCG/2 ML AMPUL IV PRN ×3 (09:17)
[2020-08-01] MEDS ORDERED: OXYCODONE-ACETAMINOPHEN 5-325 MG TABLET PO PRN ×3 (09:17→11:36)
[2020-08-01] MEDS ORDERED: ONDANSETRON HCL INJ/PF 4 MG/2 ML SDV IV PRN (09:17)
[2020-08-01] MEDS ORDERED: DIPHENHYDRAMINE HCL 50 MG/ML VIAL IV PRN (09:17)
[2020-08-01] MEDS ORDERED: MEPERIDINE HCL/PF INJ 25 MG/1 ML DISP.SYRIN IV PRN (09:17)
--- NOTE | 2020-08-01 11:25 | Brief Operative Note ---
BRIEF OPERATIVE REPORT DATE OF SURGERY: 08/01/20 TIME OF SURGERY: 08:00 PREOPERATIVE DIAGNOSIS: H/o section, Undesired Fertility, 38+0ega, Poorly controlled GDM vs pregestational DM POSTOPERATIVE DIAGNOSIS: AISHA - delivered SURGEON: JAZMIN VELASQUEZ FINDINGS: [facility]FI delivered 920, weight 7#13oz, Apgars 8/9. [facility] performed. Normal bilateral tubes/ovaries, normal uterus. UOP 400ml, IVF 2000ml, QBL 650ml COMPLICATIONS: None ESTIMATED BLOOD LOSS: 700ml TISSUE REMOVED OR ALTERED: placenta and cord not sent to pathology, Bilateral portion of fallopian tube sent to pathology TECHNICAL PROCEDURE: Repeat Section with [facility] and scar revision.
--- NOTE | 2020-08-01 11:32 | Birth Certificate Data ---
Cert Data Datetime Report Generated by LELE: 08/01/2020 11:32 CERTIFICATE DATA 47a. Care: Yes (06/19/2020 17:12:Robinson Licea RN) 47b. Date of First Visit: 01/22/2020 00:00 (06/19/2020 17:12:Joana Zayas RN) 47c. Date of Last Visit: 07/29/2020 00:00 (06/19/2020 17:12:Joana Zayas RN) 47d. Number of Visits: 16 (Annotations: Data stored by Todd on behalf of user) (06/19/2020 17:12:Joana Zayas RN) 48a. Number of Prev Live Births: 1 (06/19/2020 17:12:Robinson Licea RN) 48b. Now Livin (06/19/2020 17:12:Emily Marsh RN) 48c. Live Births Now : 0 (06/19/2020 17:12:QS system process) 48e. Losses: 1 (06/19/2020 17:12:Robinson Licea RN) RISK FACTORS IN THIS 49a. Diabetes: Yes (06/19/2020 17:12:Robinson Licea RN) Type of Diabetes: Gestational Diabetes (06/19/2020 17:12:Robinson Licea RN) 49b. Hypertension: No (06/19/2020 17:12:Robinson Licea RN) 49c. Previous Births: 1 (06/19/2020 17:12:Emily Marsh RN) 49d. Stillborns: No (06/19/2020 17:12:Robinson Licea RN) 49d. IUGR: No (06/19/2020 17:12:Robinson Licea RN) 49e. Infertility Treatment: No (06/19/2020 17:12:Robinson Licea RN) 49f. Previous Cesareans: 1 (06/19/2020 17:12:Robinson Licea RN) Mother's Height 50b. Height Inches: 67 (08/01/2020 05:36:QS system process) Mother's Weight 51a. Pre- Weight (lbs): 189 (06/19/2020 17:12:Joana Zayas RN) 51b. Weight at Delivery (lbs): 205 (08/01/2020 05:36:QS system process) Infections Present/Treated 53a. Gonorrhea: No (06/19/2020 17:12:Lashanda Bravo RN) Results this Hospital Visit : Negative (06/19/2020 17:12:Joana Zayas RN) 53b. Syphilis: No (06/19/2020 17:12:Lashanda Bravo RN) 53c. Chlamydia: No (06/19/2020 17:12:Lashanda Bravo RN) Results this Hospital Visit: Negative (06/19/2020 17:12:Joana Zayas RN) 53d. Hepatitis B: No (06/19/2020 17:12:Robinson Licea RN) Results this Hospital Visit: Negative (06/19/2020 17:12:Deb Manning RN) 53e. Hepatitis C: Negative (06/19/2020 17:12:Deb Manning RN) 53h. Mother Tested for HBsAG: Yes (06/19/2020 17:12:Joana Zayas RN) 53i. Date Tested: 01/22/2020 00:00 (06/19/2020 17:12:Joana Zayas RN) 53j. Test Result: Negative (06/19/2020 17:12:Deb Manning RN) Obstetric Procedures 54a, b, c. Obstetric Procedures: Ultrasound (06/19/2020 17:12:Robinson Licea RN) Cigarette Smoking Cigarette Smoking: Never Smoker. [id number] (06/19/2020 17:12:Robinson Licea RN) 55a. 3 Months Before Preg - Ci (06/19/2020 17:12:Joann Campuzano RN) 55a. Packs: 0 (06/19/2020 17:12:Joann Campuzano RN) 55b. 1st Trimester of Preg- Ci (06/19/2020 17:12:Jaonn Campuzano RN) 55b. Packs: 0 (06/19/2020 17:12:Joann Campuzano RN) 55c. 2nd Trimester of Preg- Ci (06/19/2020 17:12:Joann Campuzano RN) 55c. Packs: 0 (06/19/2020 17:12:Joann Campuzano RN) 55d. 3rd Trimester of Preg- Ci (06/19/2020 17:12:Joann Campuzano RN) 55d. Packs: 0 (06/19/2020 17:12:Joann Campuzano RN) Onset of Labor 56a. PROM >12 Hrs: 0.00 (06/19/2020 17:12:QS system process) 57a. Induction of Labor: N/A (06/19/2020 17:12:Joann Campuzano RN) 57c. Non-Vertex Presentation A: Vertex (06/19/2020 17:12:Mini Castillo RN) 57d. Steroids - Lung Mat: None (06/19/2020 17:12:Joann Campuzano RN) 57d. Steroids - Lung Mat: Not Applicable (06/19/2020 17:12:Joann Campuzano RN) 57f. Mat [place] or Temp >100.4: 98.5 (06/19/2020 17:12:Mini Castillo RN) 57g. Moderate/Heavy Meconium: Clear (06/19/2020 17:12:Mini Castillo RN) 57h. Intolerance of Labor: Repeat Elective (06/19/2020 17:12:Joann Campuzano RN) 57i. Epidural/Spinal Anesthesia: None (06/19/2020 17:12:Radha Cruz RN) Method of Delivery 58a. Forceps - Unsuccessful A: N/A (06/19/2020 17:12:Radha Cruz RN) 58b. Vacuum - Unsuccessful A: N/A (06/19/2020 17:12:Radha Cruz RN) 58c. Presentation at 58c. Presentation at - A : Vertex (06/19/2020 17:12:Mini Castillo RN) 58c. Presentation at - A : N/A (06/19/2020 17:12:Mini Castillo RN) 58c. Presentation at - A : Cephalic (06/19/2020 17:12:Mini Castillo RN) Final Route and Method of Del 58d. Baby A Route/Delivery: (06/19/2020 17:12:Radha Cruz RN) 58e. Trial of Labor Attempted: No (06/19/2020 17:12:Joann Campuzano RN) 58e. Trial of Labor Attempted A: N/A (06/19/2020 17:12:Joann Campuzano RN) 58e. Trial of Labor Attempted B: N/A (06/19/2020 17:12:Joann Campuzano RN) Maternal Morbidity 59b. 3rd or 4th Degree Lacs: None (06/19/2020 17:12:Radha Cruz RN) Birthweight Baby A: 3530 (06/19/2020 17:12:Alysa Alves RN) 60a. Pounds : 7 (06/19/2020 17:12:QS system process) 60b. Ounces: 13 (06/19/2020 17:12:QS system process) 61. GA at Delivery Baby A: 38.0 (06/19/2020 17:12:Joann Campuzano RN) : Early Term- 37- 38.6 Weeks (06/19/2020 17:12:QS system process) 62a. 5 Minute Baby A: 9 (06/19/2020 17:12:QS system process)
--- NOTE | 2020-08-01 11:32 | Delivery Summary ---
Del Sum A-C Datetime Report Generated by CPN: 08/01/2020 11:32 DELIVERY PERSONNEL DELIVERY PERSONNEL: [id number] Delivery Doctor:: Lynn Seaman MD MACHINE CHAIN MAKER:: Milo Turcios CRNA Cyber Workforce Developer And Manager:: Mini Castillo RN Student Observers:: Amita student nurse Sausage Inspector/PSYCHOLOGY TECH: Corine Latif CST Sausage Inspector/PSYCHOLOGY TECH: Jean Harvey CST Additional Personnel: : Corine Latif CST MATERNAL INFORMATION Delivery Anesthesia: Spinal Medications After Delivery: Pitocin Bolus-Please Comment; Pitocin 30 Units in 500ml NS/D5W Estimated Blood Loss (ml): 700 Maternal Complications: None LABOR SUMMARY EDC: 08/15/2020 00:00 No. Babies in Womb: 1 Attempted: No Labor Anesthesia: None LABOR INFORMATION Reason for Induction: Not Applicable Oxytocin: N/A Group B Beta Strep: positive Antibiotics # of Doses: 0 Steroids Given: None Reason Steroids Not Administered: Not Applicable MEMBRANES Membranes Rupture Method: Artificial Rupture of Membranes: 08/01/2020 09:21 Length of Rupture (hr): 0.00 Amniotic Fluid Color: Clear Amniotic Fluid Amount: Moderate Amniotic Fluid Odor: None STAGES OF LABOR Stage 3 hr: 0 Stage 3 min: 2 VAGINAL DELIVERY Episiotomy: None Laceration #1: None Laceration Extension #1: N/A Laceration Repair: Not Applicable Sponge Count Correct: N/A Sharps Count Correct: N/A CSECTION DELIVERY Primary Indication: Repeat Elective CSection Urgency: Scheduled CSection Incidence: Repeat Labor: No Labor Elective: Nonelective CSection Incision: Lower Uterine Transverse Sterilization Procedure: [place] BABY A INFORMATION Infant Delivery Date/Time: 08/01/2020 09:21 Method of Delivery: Nurse Controlled Delivery: No Born in Route : No : N/A Forceps: N/A Vacuum Extraction: N/A Shoulder Dystocia : No PRESENTATION/POSITION BABY A Presentation: Cephalic Cephalic Presentation: Vertex Breech Presentation: N/A PLACENTA INFORMATION BABY A Placenta Delivery Time : 08/01/2020 09:23 Placenta Method of Delivery: Manual Removal Placenta Status: Delivered SCORES BABY A Heart Rate 1 min: >100 bpm Resp Effort 1 min: Good Cry Reflex Irritability 1 min: Cough or Sneeze or Pulls Away Muscle Tone 1 min: Active Motion Color 1 min: Blue/Pale Resuscitation Effort 1 min: Tactile Stimulation SCORE 1 MIN: 8 Heart Rate 5 min: >100 bpm Resp Effort 5 min: Good Cry Reflex Irritability 5 min: Cough or Sneeze or Pulls Away Muscle Tone 5 min: Active Motion Color 5 min: Body [place], Extremities Blue Resuscitation Effort 5 min: N/A SCORE 5 MIN: 9 INFANT INFORMATION BABY A Gestational Age at Delivery: 38.0 Gestational Status: Early Term- 37- 38.6 Weeks Outcome : Liveborn Condition : Stable Sex: Female IDENTIFICATION BABY A Verification Date/Time: 08/01/2020 09:25 ID Band Number: [id number] Mother's Name Verified: Yes Infant RN Verifying Infant: Levon Castillo REJI Additional Verifying Personnel: Gini Bravo RN WEIGHT/LENGTH BABY A Birthweight (gm): 3530 Weight (lb): 7 Infant Weight (oz): 13 Infant Length (in): 20.00 Length (cm): 50.80 CORD INFORMATION BABY A No. Cord Vessels: 3 Nuchal Cord : Around Neck x1, Loose Cord Blood Taken: Yes-For Storage (Mom's Blood type +) Infant Suction: Mouth; Nose BABY B INFORMATION : N/A
[2020-08-01] MEDS ORDERED: ACETAMINOPHEN 325 MG TABLET PO PRN (11:36)
[2020-08-01] MEDS ORDERED: ACETAMINOPHEN 1,000 MG/100 ML RTUPB IV PRN (11:36)
[2020-08-01] MEDS ORDERED: MEASLES,MUMPS&RUBELLA VACC/PF 0.5 ML VIAL SUBCUT PRN (11:36)
[2020-08-01] MEDS ORDERED: DIPH/PERTUSS(ACELL)/TETANUS VAC/PF 0.5 ML SYR (>=10YO) IM PRN (11:36)
[2020-08-01] MEDS ORDERED: OXYTOCIN/0.9 % SODIUM CHLORIDE 30 UNIT/500 ML RTUINJ IV PRN (11:36)
[2020-08-01] MEDS ORDERED: DIPHENHYDRAMINE HCL 50 MG/ML VIAL ONE (11:57)
[2020-08-01] MEDS: IBUPROFEN 800 MG TABLET PO SCH ×3 (12:03→23:23)
[2020-08-01] MEDS ORDERED: MEPERIDINE HCL/PF INJ 25 MG/1 ML DISP.SYRIN ONE (12:09)
--- NOTE | 2020-08-01 13:34 | Operative Report ---
Operative Report DATE OF SURGERY: 08/01/20 PREOPERATIVE DIAGNOSIS: H/o section, Undesired Fertility, 38+0ega, Poo rly controlled GDM vs pregestational DM POSTOPERATIVE DIAGNOSIS: AISHA - delivered OPERATION: Repeat Section with [facility] and scar revision. SURGEON: JAZMIN VELASQUEZ ANESTHESIA: Spinal TISSUE REMOVED OR ALTERED: placenta and cord not sent, bilateral portions of fa llopian tube given. COMPLICATIONS: None ESTIMATED BLOOD LOSS: 700 QUANTITATIVE BLOOD LOSS: 650 INTRAOPERATIVE FINDINGS: [facility] delivered 0921, weight 7#13oz, Apgars 8/9. [facility] performed. Normal bilateral tubes/ovaries, normal uterus. UOP 400ml, IVF 2000ml, QBL 650ml PROCEDURE: Anesthesia provider: [Milo Turcios CRNA, ] Urine output: [400ml] IV fluids: [2000ml] Indications: [34yo at 38+0ega presents for Repeat section and Bilateral tubal ligation. She is 100% sure that she has completed childbearing. CHEYANNE 08/15/2020. Her was complicated by GDM versus Pregestational DM with HbA1c of 6. She has a history of c/s at 32wks and desires repeat. [facility] recommended delivery at 38wks due to poorly controlled DM. She was counseled regarding the r/b/a and desires to proceed with planned procedure.] Procedure: The patient was taken to the operating room where spinal anesthesia was obtained and found to be adequate. She was then prepped and draped in the normal sterile fashion and placed in the dorsal supine position with a leftward tilt. The Pfannenstiel skin incision was then excised and carried through to the underlying layers of the fascia with the scalpel. The fascia was incised in the midline and the incision extended laterally with the Ojeda scissors. The superior aspect of the fascial incision was then grasped with Vamsi clamps elevated and the underlying rectus muscles dissected off [bluntly]. Attention was then turned to the inferior aspect of the fascial incision which in a similar fashion was grasped, tented up with Vamsi clamps, and the rectus muscles dissected off [bluntly]. The rectus muscles were then in the midline and the peritoneum at the amount identified and entered [bluntly]. The peritoneal incision was then extended superiorly and inferiorly with good visualization of the bladder. The bladder blade was inserted and the vesicouterine peritoneum identified grasped with [place] pickups and entered sharply with the Metzenbaum scissors. This incision was then extended laterally with the Metzenbaum scissors and a bladder flap created digitally. The bladder blade was then reinserted and the lower uterine segment incised in a transverse fashion with the scalpel. The uterine incision was then extended bluntly. The bladder blade was removed and the 's head was delivered from cephalic presentation atraumatically. The nose and mouth were suctioned and the cord doubly clamped and cut. And the was handed off to waiting pediatricians. The placenta was then delivered spontaneously and the uterus exteriorized and cleared of all clots and debris. The uterine incision was then repaired with 1- 0 Vicryl in a running locked fashion. A second layer of the same suture was used to obtain hemostasis via imbrication of the initial layer. The bladder flap was then repaired with 3-0 chromic in a running fashion. The proximal left fallopian tube was identified and ligated both proximally and distally then the intervening portion of the fallopian tube was excised. This procedure was repeated on the patient's right. This completed [facility] Bilateral Tubal Ligation. The uterus was returned to the patient's abdomen and Interceed was placed overlying the uterine incision to prevent adhesions. The gutters were cleared of all clots and debris. All operative sites were noted to be hemostatic. The fascia was reapproximated with 0 Vicryl in a running fashion from each lateral edge to the midline. The skin was closed with 3-0 Monocryl in a running subcuticular fashion with overlying Dermabond for additional dressing as well as wound closure. The patient tolerated the procedure well. Sponge lap needle and instrument counts are correct times 2. 2 g of Ancef were given prior to skin incision. The patient was taken to the recovery area awake and in stable condition.
[2020-08-01] MEDS: OXYCODONE-ACETAMINOPHEN 5-325 MG TABLET PO PRN ×2 (14:36→20:10)
[2020-08-01] MEDS: DOCUSATE SODIUM 100 MG CAPSULE PO SCH (18:14)
[2020-08-01] MEDS: SIMETHICONE 80 MG TAB.CHEW PO PRN (18:14)
[2020-08-01] MEDS: KETOROLAC TROMETHAMINE INJ/PF 30 MG/1 ML SDV IV SCH (20:26)
[2020-08-01] MEDS: HYDROMORPHONE HCL INJ/PF 2 MG/ML AMPULE IV PRN (21:20)
[2020-08-02] MEDS: OXYCODONE-ACETAMINOPHEN 5-325 MG TABLET PO PRN ×4 (00:15→21:06)
[2020-08-02] MEDS: SIMETHICONE 80 MG TAB.CHEW PO PRN ×3 (00:15→18:24)
[2020-08-02] MEDS: KETOROLAC TROMETHAMINE INJ/PF 30 MG/1 ML SDV IV SCH ×2 (02:52→10:48)
[2020-08-02] MEDS: IBUPROFEN 800 MG TABLET PO SCH ×2 (05:10→17:36)
[2020-08-02 07:42] LABS: HEMATOCRIT 28.3 % (36.0-47.0); HEMOGLOBIN 9.2 g/dL (12.0-15.5); MEAN CORPUSCULAR HEMOGLOBIN 22.6 pg (27.0-33.4); MEAN CORPUSCULAR HGB CONC 32.4 g/dL (32.0-36.0); MEAN CORPUSCULAR VOLUME 70 fl (80-97); PLATELET COUNT 292 10^3/uL (150-450); RED BLOOD COUNT 4.06 10^6/uL (3.72-5.28); RED CELL DISTRIBUTION WIDTH 17.4 % (11.5-14.0); WHITE BLOOD COUNT 11.2 10^3/uL (4.0-10.5)
--- NOTE | 2020-08-02 09:52 | PDOC PROGRESS REPORT ---
Subjective-OB Progress Note for:: 08/02/20 - POD #1, doing well, . s/p Rpt c- section. A+ blood type Physical Exam (OB) Vital Signs: Temp Pulse Resp BP Pulse Ox 98.0 F 80 16 120/69 98 08/02/20 07:53 08/02/20 07:39 08/02/20 04:50 08/02/20 07:39 08/02/20 07:39 Intake & Output 08/01/20 08/02/20 08/03/20 06:59 06:59 06:59 Intake Total 480 Output Total 2200 Balance -1720 - General General Appearance: Appears well, Alert In distress: None - PIH/Pre-Eclampsia Clonus: Negative Headache: Absent Epigastric Pain: No Visual Changes: No - Dressing Removed: No - Pressure dressing in place; clean & dry Closure Type: Pressure Note: dressing applied, clean dry and intact - Maternal Morbidity 59. Maternal Morbidity (serious complications experinced by the mother associated with labor and delivery: None of the above - Lochia Lochia Amount: Small 10-25 ml Lochia Color: Rubra/Red - Abdomen Description: Tender, Soft Hernia Present: No Fundal Description: Firm, Midline Fundal Height: u/u - u/2 - Respiratory Respiratory Status: No respiratory distress Breath sounds: Clear - Cardiovascular Heart Sounds: Normal auscultation - Abdominal Inspection: Caput medussa Distension: No distension Abdominal Notes: +bowel sounds - Genitourinary Genitourinary Note: voiding - Extremities Upper extremity: Normal inspection Lower extremities: Normal inspection - Neurological Cognition: Normal Orientation: AAOx4 - Psychological Associated symptoms: Normal affect, Normal mood - Skin Skin Temperature: Warm Skin Moisture: Dry Objective-Diagnostic Laboratory: 08/02/20 06:53 08/02/20 06:53 WBC 11.2 H RBC 4.06 Hgb 9.2 L Hct 28.3 L MCV 70 L MCH 22.6 L MCHC 32.4 RDW 17.4 H Plt Count 292 Assessment and Plan(PN) - Assessment and Plan (1) History of delivery Is this a current diagnosis for this admission?: Yes (2) S/P repeat low transverse Is this a current diagnosis for this admission?: Yes (4) T2DM (type 2 diabetes mellitus) Qualifiers: Diabetes mellitus buttermaker continuous churn insulin use: without assisted use Diabetes mellitus complication status: without complication Qualified Code(s): E11.9 - Type 2 diabetes mellitus without complications Is this a current diagnosis for this admission?: Yes Plan:: routine PP and Post Op orders, ambulation encouraged - Time Spent with Patient Time with patient: Less than 15 minutes Medications reviewed and adjusted accordingly: Yes - Disposition Anticipated Discharge Disposition: Home, Self Care Anticipated Discharge Timeframe: within 48 hours
[2020-08-02] MEDS: FERROUS SULFATE 325 MG TABLET PO SCH (10:48)
[2020-08-02] MEDS: PRENATAL VITAMIN W DHA CAPSULE PO SCH (10:48)
[2020-08-02] MEDS: DOCUSATE SODIUM 100 MG CAPSULE PO SCH ×2 (10:48→17:35)
[2020-08-02] MEDS: HYDROMORPHONE HCL INJ/PF 2 MG/ML AMPULE IV PRN (18:33)
[2020-08-02] MEDS ORDERED: MAGNESIUM HYDROXIDE SUSP 30 ML UDCUP ONE (22:01)
[2020-08-02] MEDS: MAGNESIUM HYDROXIDE SUSP 30 ML UDCUP PO PRN (22:05)
[2020-08-03] MEDS: IBUPROFEN 800 MG TABLET PO SCH ×3 (00:32→11:35)
[2020-08-03] MEDS: SIMETHICONE 80 MG TAB.CHEW PO PRN (00:32)
[2020-08-03] MEDS ORDERED: INFLUENZA QUAD (6MOS+) 2020-21 VAC 0.5 ML SYR IM ONE (08:00)
--- NOTE | 2020-08-03 10:16 | PDOC DISCHARGE SUMMARY ---
Impression - Admit/DC Date/PCP Admission Date/Primary Care Provider: 08/01/20 05:20 BRIONNA STEARNS MD Discharge Date: 08/03/20 - POD #2, doing well today, desires to go home, - Discharge Diagnosis (1) History of delivery Is this a current diagnosis for this admission?: Yes (2) S/P repeat low transverse Is this a current diagnosis for this admission?: Yes (3) Sterilization Is this a current diagnosis for this admission?: Yes (4) T2DM (type 2 diabetes mellitus) Is this a current diagnosis for this admission?: Yes - Additional Information Resuscitation Status: Full Code Discharge Diet: As Tolerated, Regular Discharge Activity: Activity As Tolerated, No Driving, No Lifting Over 10 Pounds, Pelvic Rest Referrals: BRIONNA STEARNS MD [Primary Care Provider] - Prescriptions: Ibuprofen [Motrin 800 mg Tablet] 800 mg PO Q6 #60 tablet Oxycodone HCl/Acetaminophen [Percocet 5-325 mg Tablet] 1 tab PO Q4HP PRN #30 tablet PRN Reason: Pain Scale Of 4 Home Medications: Ibuprofen [Motrin 800 mg Tablet] 800 mg PO Q6 #60 tablet 08/03/20 Oxycodone HCl/Acetaminophen [Percocet 5-325 mg Tablet] 1 tab PO Q4HP PRN #30 tablet 08/03/20 Vit/Dha [ Multi + Dha Capsule] 1 cap PO DAILY capsule 08/03/20 HPI Reason(s) for Admission: Ceasarean Section-Repeat, Tubal Ligation, Medical Complications - Type 2 Diabetes Procedures: Ultrasound Intrapartum Procedure(s): : Low Cervical, Transverse Hospital Course Hospital Course: normal 59. Maternal Morbidity (serious complications experinced by the mother associated with labor and delivery: None of the above Results Laboratory Results: WBC 11.2 10^3/uL (4.0-10.5) H 08/02/20 06:53 RBC 4.06 10^6/uL (3.72-5.28) 08/02/20 06:53 Hgb 9.2 g/dL (12.0-15.5) L 08/02/20 06:53 Hct 28.3 % (36.0-47.0) L 08/02/20 06:53 MCV 70 fl (80-97) L 08/02/20 06:53 MCH 22.6 pg (27.0-33.4) L 08/02/20 06:53 MCHC 32.4 g/dL (32.0-36.0) 08/02/20 06:53 RDW 17.4 % (11.5-14.0) H 08/02/20 06:53 Plt Count 292 10^3/uL (150-450) 08/02/20 06:53 Lymph % (Auto) 23.9 % (13-45) 07/29/20 10:50 [place] % (Auto) 6.9 % (3-13) 07/29/20 10:50 Eos % (Auto) 0.8 % (0-6) 07/29/20 10:50 Baso % (Auto) 0.2 % (0-2) 07/29/20 10:50 Absolute Neuts (auto) 7.3 10^3/uL (1.7-8.2) 07/29/20 10:50 Absolute Lymphs (auto) 2.6 10^3/uL (0.5-4.7) 07/29/20 10:50 Absolute Monos (auto) 0.7 10^3/uL (0.1-1.4) 07/29/20 10:50 Absolute Eos (auto) 0.1 10^3/uL (0.0-0.6) 07/29/20 10:50 Absolute Basos (auto) 0.0 10^3/uL (0.0-0.2) 07/29/20 10:50 Seg Neutrophils % 68.2 % (42-78) 07/29/20 10:50 POC Glucose 106 mg/dL (70-110) 08/03/20 06:15 Urine Color YELLOW 07/29/20 10:40 Urine Appearance SLIGHTLY-CLOUDY 07/29/20 10:40 Urine pH 5.0 (5.0-9.0) 07/29/20 10:40 Ur Specific [place] 1.025 07/29/20 10:40 Urine Protein 30 mg/dL (NEGATIVE) H 07/29/20 10:40 Urine Glucose (UA) 50 mg/dL (NEGATIVE) H 07/29/20 10:40 Urine Ketones NEGATIVE mg/dL (NEGATIVE) 07/29/20 10:40 Urine Blood SMALL (NEGATIVE) H 07/29/20 10:40 Urine Nitrite NEGATIVE (NEGATIVE) 07/29/20 10:40 Urine Bilirubin NEGATIVE (NEGATIVE) 07/29/20 10:40 Urine Urobilinogen NEGATIVE mg/dL (<2.0) 07/29/20 10:40 Ur Leukocyte Esterase NEGATIVE (NEGATIVE) 07/29/20 10:40 Urine WBC (Auto) 3 /HPF 07/29/20 10:40 Urine RBC (Auto) 2 /HPF 07/29/20 10:40 Urine Bacteria (Auto) TRACE /HPF 07/29/20 10:40 Squamous Epi Cells Auto 7 /HPF 07/29/20 10:40 Urine Mucus (Auto) OCC /LPF 07/29/20 10:40 Urine Ascorbic Acid NEGATIVE (NEGATIVE) 07/29/20 10:40 Urine Opiates Screen NEGATIVE 07/29/20 10:40 Urine Methadone Screen NEGATIVE 07/29/20 10:40 Ur Barbiturates Screen NEGATIVE 07/29/20 10:40 Ur Phencyclidine Scrn NEGATIVE 07/29/20 10:40 Ur Amphetamines Screen NEGATIVE 07/29/20 10:40 U Benzodiazepines Scrn NEGATIVE 07/29/20 10:40 Urine Cocaine Screen NEGATIVE 07/29/20 10:40 U Marijuana (THC) Screen NEGATIVE 07/29/20 10:40 RPR Not Reportable 08/01/20 11:34 COVID-19 Source See comment 07/29/20 10:45 COVID-19 (KARAN) Not Detected (Not Detect) 07/29/20 10:45 Blood Type A POSITIVE 07/31/20 13:45 Antibody Screen NEGATIVE 07/31/20 13:45 Plan Plan of Treatment: d/c home, f/up with [facility] in one week for incision check. Continue checking blood sugars to make sure they are in normal ranged Time Spent: Less than 30 Minutes
[2020-08-03] MEDS: MAGNESIUM HYDROXIDE SUSP 30 ML UDCUP PO PRN (10:26)
[2020-08-03] MEDS: PRENATAL VITAMIN W DHA CAPSULE PO SCH (10:26)
[2020-08-03] MEDS: FERROUS SULFATE 325 MG TABLET PO SCH (10:26)
[2020-08-03] MEDS: DOCUSATE SODIUM 100 MG CAPSULE PO SCH (10:26)
[2020-08-03 12:11] VITALS: BP 112/66
== END 2020-08-03 14:20 | disposition home or self-care (01) | DRG 785 ==
LOC: LR 05:20 → 2N 12:45
PROVIDERS: ADMIT Obstetrics & Gynecology Gynecology; ATTEND Student in an Organized Health Care Education/Training Program
PROC: 10D00Z1 Extraction of Products of Conception, Low, Open Approach (ICD-10-PCS; principal; 2020-08-01)
PROC: 0UB70ZZ Excision of Bilateral Fallopian Tubes, Open Approach (ICD-10-PCS; 2020-08-01)
PROC: 3E02340 Introduction of Influenza Vaccine into Muscle, Percutaneous Approach (ICD-10-PCS; 2020-08-03)
DX: O24.424 Gestational diabetes mellitus in childbirth, insulin controlled (principal); O34.211 Maternal care for low transverse scar from previous cesarean delivery; Z37.0 Single live birth; Z3A.38 38 weeks gestation of pregnancy; Z30.2 Encounter for sterilization; Z20.828 Contact with and (suspected) exposure to other viral communicable diseases; Z23 Encounter for immunization
CPT/HCPCS: 1961; 36415; 80307; 81001; 82962; 85025; 85027; 86592; 86850; 86900; 86901; 87635; 88302; 90686; 94799; C9803; J0131; J0690; J1170; J1200; J1885; J2175; J2250; J2370; J2405; J2590; J3010; J3490; J7120

== ENCOUNTER 2020-10-13 16:45 | Emergency (ER) | payer BC, MEDICAID ==
[2020-10-13 16:52] VITALS: BP 139/80
--- NOTE | 2020-10-13 17:58 | ER Document Report ---
ED Medical Screen (RME) - General Chief Complaint: Lower Abdominal Pain Stated Complaint: ABDOMINAL PAIN Time Seen by Provider: 10/13/20 17:44 Primary Care Provider: BRIONNA STEARNS MD [Primary Care Provider] - Follow up as needed TRAVEL OUTSIDE OF THE [place] IN LAST 30 DAYS: No - HPI Notes: Patient is a 34 y/o female with a hx of PCOS who presents with lower abdominal cramping for the past three weeks. She had a two months ago without complications. She has been seen by her [employer] FINISHER concerning the abdominal cramping and had an US done which showed a thickened endometrial stripe. Endometrial biopsy was done in office 4 days ago. Patient was also recently started on Provera. She reports yesterday she passed these abnormal colored "tissue/clots" and became concerned. She reports she started having vaginal bleeding today. She denies vomiting, chest pain, shortness of breath, and fever. Patient cannot see be seen by her [employer]D [employer] FINISHER until this coming . - Related Data Allergies/Adverse Reactions: No Known Allergies Allergy (Verified 06/23/20 18:42) Past Medical History - Past Medical History Cardiac Medical History: Denies: Hx Coronary Artery Disease, Hx Hypercholesterolemia, Hx Hypertension Pulmonary Medical History: Denies: Hx Asthma, Hx COPD Neurological Medical History: Denies: Hx Seizures Endocrine Medical History: Denies: Hx Diabetes Mellitus Type 1, Hx Diabetes Mellitus Type 2, Hx Hyperthyroidism, Hx Hypothyroidism Renal/ Medical History: Denies: Hx Ovarian Cysts, Hx Peritoneal Dialysis, Hx Pelvic Inflammatory Disease Malignancy Medical History: Denies: Hx Breast Cancer, Hx Cervical Cancer, Hx Ovarian Cancer GI Medical History: Reports: Hx Gastroesophageal Reflux Disease - WITH . Denies: Hx Cirrhosis, Hx Crohn's Disease, Hx Hepatitis, Hx Hiatal Hernia, Hx Ulcer, Hx Ulcerative Colitis Musculoskeltal Medical History: Denies Hx Arthritis, Denies Hx Gout Skin Medical History: Denies Hx Eczema, Denies Hx Psoriasis Psychiatric Medical History: Denies: Hx Depression Infectious Medical History: Denies: Hx Hepatitis Past Surgical History: Reports: Hx Appendectomy, Hx Section, Hx Gynecologic Surgery - d&c - Immunizations Immunizations up to date: Yes Hx Diphtheria, Pertussis, Tetanus Vaccination: Yes Physical Exam - Vital signs Vitals: Temp Pulse Resp BP Pulse Ox 97.6 F 75 18 139/80 H 98 10/13/20 16:51 10/13/20 16:51 10/13/20 16:51 10/13/20 16:51 10/13/20 16:51 - Abdominal Distension: No distension Tenderness: Tender - Bilateral lower abdomen Course - Re-evaluation Re-evalutation: I have greeted and performed a rapid initial assessment of this patient. A comprehensive ED assessment and evaluation of the patient, analysis of test results and completion of medical decision making process will be conducted by an additional ED providers. - Vital Signs Vital signs: Temp Pulse Resp BP Pulse Ox 97.6 F 75 18 139/80 H 98 10/13/20 16:51 10/13/20 16:51 10/13/20 16:51 10/13/20 16:51 10/13/20 16:51 Doctor's Discharge - Discharge Referrals: BRIONNA STEARNS MD [Primary Care Provider] - Follow up as needed
[2020-10-13 18:51] LABS: ABSOLUTE EOSINOPHILS # (AUTO) 0.1 10^3/uL (0.0-0.6); ABSOLUTE LYMPHOCYTES (AUTO) 2.5 10^3/uL (0.5-4.7); ABSOLUTE MONOCYTES (AUTO) 0.5 10^3/uL (0.1-1.4); ABSOLUTE NEUT (AUTO) 5.3 10^3/uL (1.7-8.2); BASOPHILS % (AUTO) 0.4 % (0-2); EOSINOPHILS % (AUTO) 0.9 % (0-6); HEMATOCRIT 35.8 % (36.0-47.0); HEMOGLOBIN 11.6 g/dL (12.0-15.5); LYMPHOCYTES % (AUTO) 29.7 % (13-45); MEAN CORPUSCULAR HEMOGLOBIN 22.3 pg (27.0-33.4); MEAN CORPUSCULAR HGB CONC 32.4 g/dL (32.0-36.0); MEAN CORPUSCULAR VOLUME 69 fl (80-97); MONOCYTES % (AUTO) 6.2 % (3-13); PLATELET COUNT 447 10^3/uL (150-450); RED BLOOD COUNT 5.22 10^6/uL (3.72-5.28); RED CELL DISTRIBUTION WIDTH 18.8 % (11.5-14.0); SEGMENTED NEUTROPHILS % (AUTO) 62.8 % (42-78); TOTAL CELLS COUNTED % (AUTO) 100 %; WHITE BLOOD COUNT 8.4 10^3/uL (4.0-10.5)
[2020-10-13 19:00] LABS: APPEARANCE,URINE CLOUDY; BILIRUBIN,URINE NEGATIVE (NEGATIVE); COLOR,URINE YELLOW; GLUCOSE, URINE NEGATIVE (NEGATIVE); KETONES,URINE NEGATIVE (NEGATIVE); LEUKOCYTE ESTERASE,URINE NEGATIVE (NEGATIVE); NITRITE,URINE NEGATIVE (NEGATIVE); PROTEIN,URINE 100 mg/dL (NEGATIVE); URINE SPECIFIC GRAVITY 1.026; UROBILINOGEN,URINE NEGATIVE mg/dL (<2.0)
[2020-10-13 19:14] LABS: ALBUMIN 4.7 g/dL (3.5-5.0); ALKALINE PHOSPHATASE 52 U/L (38-126); ANION GAP 9 (5-19); ASPARTATE AMINO TRANSFERASE 25 U/L (14-36); BILIRUBIN,TOTAL 0.6 mg/dL (0.2-1.3); BLOOD UREA NITROGEN 14 mg/dL (7-20); CALCIUM 10.1 mg/dL (8.4-10.2); CARBON DIOXIDE 26 mmol/L (22-30); CHLORIDE 104 mmol/L (98-107); GLUCOSE 97 mg/dL (75-110); POTASSIUM 4.5 mmol/L (3.6-5.0); TOTAL PROTEIN 8.4 g/dL (6.3-8.2)
--- NOTE | 2020-10-13 22:26 | ER Document Report ---
ED General - General Chief Complaint: Abdominal Pain Stated Complaint: ABDOMINAL PAIN Time Seen by Provider: 10/13/20 17:44 Primary Care Provider: BRIONNA STEARNS MD [ACTIVE PROVISIONAL STAFF] - Follow up as needed Mode of Arrival: Ambulatory Information source: Patient Notes: 34-year-old female patient presented to the emergency department chief complaint of lower abdominal cramping over the last 3 weeks. She reports she had a C- section 2 months ago without complications. She states she has been seen by her SOFT SUGAR CUTTER for the abdominal cramping, she had an ultrasound done a few days ago which showed a thickened endometrial stripe. She had a biopsy done a few days ago. Since then she has been passing abnormal colored yellow tissue and clots. She states today she started bleeding vaginally. The reason she came to the emergency department is because she was concerned she may have retained products of conception as her mother suggested that. She is currently taking Provera per the advice of her SOFT SUGAR CUTTER. TRAVEL OUTSIDE OF THE [place] IN LAST 30 DAYS: No - Related Data Allergies/Adverse Reactions: No Known Allergies Allergy (Verified 06/23/20 18:42) Past Medical History - General Information source: Patient - Social History Smoking Status: Never Smoker Chew tobacco use (# tins/day): No Frequency of alcohol use: None Drug Abuse: None Family History: Hypertension - Father, Malignancy - Aunt. denies: CAD, DM - Past Medical History Cardiac Medical History: Denies: Hx Coronary Artery Disease GI Medical History: Reports: Hx Gastroesophageal Reflux Disease - WITH Past Surgical History: Reports: Hx Appendectomy, Hx Section, Hx Gynecologic Surgery - d&c - Immunizations Immunizations up to date: Yes Hx Diphtheria, Pertussis, Tetanus Vaccination: Yes Review of Systems - Review of Systems Female Genitourinary: Vaginal discharge - Yellow, Vaginal bleeding, Other - Pelvic cramping -: Yes All other systems reviewed and negative Physical Exam - Vital signs Vitals: Temp Pulse Resp BP Pulse Ox 97.6 F 75 18 139/80 H 98 10/13/20 16:51 10/13/20 16:51 10/13/20 16:51 10/13/20 16:51 10/13/20 16:51 - Notes Notes: PHYSICAL EXAMINATION: GENERAL: Well-appearing, well-nourished and in no acute distress. HEAD: Atraumatic, normocephalic. EYES: Pupils equal round and reactive to light, extraocular movements intact, conjunctiva are normal. ENT: Nares patent, oropharynx clear without exudates. Moist mucous membranes. NECK: Normal range of motion, supple without lymphadenopathy LUNGS: Breath sounds clear to auscultation bilaterally and equal. No wheezes rales or rhonchi. HEART: Regular rate and rhythm without murmurs ABDOMEN: Soft, nontender, nondistended abdomen. No guarding, no rebound. No masses appreciated. Female : Normal external genitalia, no abnormality noted on pelvic exam, no adnexal or cervical motion tenderness. No vaginal discharge noted. Musculoskeletal: Normal range of motion, no pitting or edema. No cyanosis. NEUROLOGICAL: Cranial nerves grossly intact. Normal speech, normal gait. Normal sensory, motor exams PSYCH: Normal mood, normal affect. SKIN: Warm, Dry, normal turgor, no rashes or lesions noted. Course - Re-evaluation Re-evalutation: Patient appears well, nontoxic, laboratory investigations were reassuring. Patient was seen during computer downtime. Her transvaginal ultrasound was negative. Patient was discharged home with plans to follow-up with her SOFT SUGAR CUTTER. - Vital Signs Vital signs: Temp Pulse Resp BP Pulse Ox 97.6 F 75 18 139/80 H 98 10/13/20 16:51 10/13/20 16:51 10/13/20 16:51 10/13/20 16:51 10/13/20 16:51 - Laboratory Results Result Diagrams: 10/13/20 18:13 10/13/20 18:13 Laboratory Results Interpreted: 10/13/20 10/13/20 10/13/20 18:13 18:13 18:13 Hgb 11.6 L Hct 35.8 L MCV 69 L MCH 22.3 L RDW 18.8 H Total Protein 8.4 H Urine Protein 100 H Urine Blood LARGE H Critical Laboratory Results Reviewed: No Critical Results - Radiology Results Critical Radiology Results Reviewed: No Critical Results Discharge - Discharge Clinical Impression: Vaginal bleeding, Vaginal discharge Condition: Stable Disposition: HOME, SELF-CARE Referrals: BRIONNA STEARNS MD [ACTIVE PROVISIONAL STAFF] - Follow up as needed
[2020-10-13 23:29] LABS: YEAST (WET MOUNT) NO YEAST SEEN
[2020-10-13 23:30] LABS: RBCS (WET MOUNT) 3+ RBCS SEEN; WBCS (WET MOUNT) FEW WBCS SEEN
[2020-10-13 23:43] LABS: T.VAGINALIS (WET MOUNT) NO TRICHOMONAS SEEN
--- NOTE | 2020-10-14 04:57 | RADIOLOGY REPORT (SQ) ---
EXAM DESCRIPTION: U/S NON OB PEL TV W/DOPPLER RadLex: US PELVIS TRANSVAGINAL CLINICAL HISTORY: 34 years Female; pelvic pain s/p endometrial biopsy; TECHNIQUE: Endovaginal pelvic ultrasound was performed. COMPARISON: 12/31/2019 FINDINGS: Uterus: 9.6 x 4.9 x 5.6 cm, with 10 mm endometrial stripe. 10 mm fibroid in the anterior lower uterus. No focal hematoma. Cervix 3.1 cm long with trace amount of fluid in the canal. Right ovary: 2.9 x 2.8 x 2 cm. Normal vascular flow on Doppler. Left ovary: 4.1 x 2.3 x 2.5 cm. Normal vascular flow on Doppler. No free fluid. No adnexal masses. IMPRESSION: 1. No acute hematoma or other acute findings. 2. No ovarian torsion 3. 10 mm lower uterine lesion, likely fibroid.
[2020-10-14 05:02] LABS: CHLAM PCR NOT DETECTED (NOT DETECT)
== END 2020-10-14 02:50 | disposition home or self-care (01) ==
LOC: ER 16:45
DX: N93.9 Abnormal uterine and vaginal bleeding, unspecified (principal); N89.8 Other specified noninflammatory disorders of vagina; N85.9 Noninflammatory disorder of uterus, unspecified; R10.2 Pelvic and perineal pain; Z98.890 Other specified postprocedural states; Z79.899 Other long term (current) drug therapy
CPT/HCPCS: 36415; 76830; 80053; 81001; 84703; 85025; 87210; 87491; 87591; 93976; 99284